=== PATIENT | female | born 1935 | race Caucasian/White ===

== ENCOUNTER 2016-07-23 20:12 | Emergency (ER) | payer MEDICARE, OTHER ==
[~2016-07-23] VITALS: Ht 154.9 cm; Wt 44.3 kg
[2016-07-23 20:12] VITALS: Ht 154.9 cm; Wt 44.3 kg
[~2016-07-23 20:12] MED LIST: ALBU1.252 AEROSOL; ASPI-558 PO; ATOR20TA59 PO; BENZ100C97 PO; ESOM20CA PO; IPRA3AMP AEROSOL; MULT-933 PO; OXYC1TAB8 PO; [UNRECOGNIZED DRUG - CODE] PO
--- OUTSIDE RECORDS SUMMARY | 2016-07-23 20:16 | XMS REPORT | Continuity of Care Document ---
Author Author [facility] Organization [facility] Address Unknown Phone Unavailable Support Name Relationship Address Phone GUNJAN RUIZ MD Caregiver [address] [place] [address] Unavailable ANGELIKA MEYERS DO Caregiver Unknown Unavailable ISABELA ETIENNE Next Of Kin Unknown [phone] Insurance Providers Guarantor Abiola Chávez Address [address] [facility] [address] [place] [id number] Email DENIED/NO TO PT [place] Payer [facility] Medicare Supp Wps Policy Number [id number] Subscriber's Name Bal Chávez Relationship 01 Spouse Effective Date 00 Payer Medicare Policy Number [id number] Subscriber's Name EduinAbiola cosby Tadeo Relationship 18 Self Effective Date 98 Advance Directives Directive Response Recorded Date/Time Advanced Directives Type None 01/23/16 9:29pm Chief Complaint and Reason for Visit Chief Complaint Throat Pain/Injury Reason for Visit Arthralgia of right temporomandibular joint Problems Active Problems Medical Problem Onset Date Status Abdominal pain Unknown Acute Abnormal liver enzymes Unknown Resolved Acute bronchitis Unknown Acute Acute respiratory insufficiency Unknown Acute Anemia Unknown Acute Arthralgia of right temporomandibular joint Unknown Acute Biliary colic Unknown Acute Bradycardia Unknown Resolved COPD (chronic obstructive pulmonary disease) Unknown Chronic COPD exacerbation Unknown Acute COPD exacerbation Unknown Acute Choledocholithiasis with obstruction Unknown Resolved Constipation Unknown Chronic Dehydration Unknown Acute Dehydration Unknown Acute Elevated serum creatinine Unknown Acute GERD (gastroesophageal reflux disease) Unknown Chronic Gallstones Unknown Resolved History of colon cancer Unknown Resolved History of pneumonia Unknown Resolved Hx of urinary tract infection Unknown Hyperlipidemia Unknown Chronic Hypokalemia Unknown Resolved Hypotension Unknown Resolved Hypoxia Unknown Chronic Influenza A Unknown Acute Influenza A Unknown Acute Migraine Unknown Chronic Oliguria Unknown Resolved Osteoarthritis Unknown Chronic Postoperative anemia due to acute blood loss Unknown Chronic Right inguinal hernia Unknown Thrombocytopenia Unknown Acute Tobacco dependency Unknown Chronic Viral upper respiratory infection Unknown Acute Vomiting Unknown Acute Past Problems Medical Problem Onset Date Small bowel obstruction Unknown Medications Current Home Medications Medication Dose Units Route Directions Days Qty Instructions Start Date Albuterol Sulfate 1.25 Mg/3 Ml Vial.neb 1 Vial Aerosol Tx. Every 6 Hours as needed for Wheezing 150 Milliliter 09/10/15 Aspirin (Aspir 81) 81 Mg Tablet. 81 Mg Oral Daily 01/10/10 Atorvastatin Calcium 20 Mg Tablet 20 Mg Oral Bedtime 06/07/14 Benzonatate (Tessalon Perle) 100 Mg Capsule 100 Mg Oral Every 8 Hours for Cough 10/03/15 Esomeprazole Mag Trihydrate (Nexium) 20 Mg Capsule 20 Mg Oral Daily 01/23/16 Ipratropium/Albuterol Sulfate (Iprat-Albut 0.5-3(2.5) Mg/3 Ml) 3 Ml Ampul.neb 1 Vial Aerosol Tx. Four Times Daily as needed for Prn Orders Multivitamin (Multi-Day Vitamins) 1 Each Tablet 1 Tab Oral Daily 01/23/16 Oxycodone Hcl/Acetaminophen (Percocet 5-325 Mg Tablet) 5-325 Tablet 0.5-1 Tab Oral Four Times Daily for Pain 10 Tablet Take 1 tablet, by mouth, 4 times a day. 01/23/16 Polyethylene Glycol 3350 (Miralax) 255 Gm Powder 17 G Oral Daily as needed for Constipation 12/10/08 Past Home Medications Medication Directions Ordered Status Calcium Carbonate/Vitamin D3 (Vitamin D-3 400 Units Tablet) 1 Tab Tablet, 1 Tab Oral Daily 01/10/10 Discontinued Cephalexin (Keflex) 500 Mg Capsule, 1 Cap Oral Four Times Daily 03/21/14 Discontinued Cholesterol Med , 06/07/14 Discontinued Ergocalciferol (Vitamin D) 400 Unit Tablet, 400 Unit Oral Daily 01/11/10 Discontinued Esomeprazole Mag Trihydrate (Nexium) 20 Mg Capsule., 20 Mg Oral Daily 04/09 Discontinued Ezetimibe/Simvastatin (Vytorin 10-20 Mg Tablet) 1 Tab Tablet, 1 Tab Oral Daily 04/09/08 Discontinued Metoclopramide Hcl (Reglan) 10 Mg Tablet, 10 Mg Oral Three Times A Day Discontinued Metoclopramide Hcl (Reglan) 5 Mg Tablet, 5 Mg Oral Daily 04/09/08 Discontinued Ondansetron (Zofran Odt) 4 Mg Tab.rapdis, 4 Mg Oral Q6h/0300,0900,1500,2100 for Nausea &/Or Vomiting 04/17/15 Discontinued Oxycodone Hcl 5 Mg Tablet, 5 Mg Oral Every 6 Hours as needed for Pain Discontinued Prednisone 5 Mg Tablet, 5 Mg Oral Taper From 60MG To 0 03/21/14 Discontinued Vitamin E Acetate (Vitamin E) 400 Unit Capsule, 400 U Oral Daily 12/10/08 Discontinued Social History Social History Problem Response Recorded Date/Time Onset Date Status Chewing Tobacco Status No 01/23/2016 10:11pm Not Applicable Not Applicable Hx Substance Use No 01/23/2016 10:11pm Not Applicable Not Applicable Hx Alcohol Use No 01/23/2016 10:11pm Not Applicable Not Applicable Has the pt used tobacco in the last 12 months Yes 11/29/2015 9:41pm Not Applicable Not Applicable Tobacco Usage smoke 03/22/2015 9:55pm Not Applicable Not Applicable Query Response Start Date Stop Date Smoking Status Current every day smoker Hospital Discharge Instructions No hospital discharge instructions. Plan of Care Discharge Date 01/23/16 10:36pm Disposition 01 DISCHARGED HOME, SELF-CARE Condition at Discharge Improved Instructions/Education Provided TMJ Syndrome (Alternative Therapy) Prescriptions See Medication Section Referrals ANGELIKA MEYERS DO Additional Instructions/Education Take Aleve 2 tablets twice daily for short term baseline pain control May use Percocet 5 mg one half to one tablet 4 times daily as needed for pain Follow up with your doctor later this week for recheck Care Plan and Goals Physician Care Plan Problem: Right TMJ arthralgia Goal: Follow up with primary care provider Instructions: Take medications and follow care plan as discussed/written Take Aleve 2 tablets twice daily for short term baseline pain control May use Percocet 5 mg one half to one tablet 4 times daily as needed for pain Follow up with your doctor later this week for recheck Functional Status No functional status results. Allergies, Adverse Reactions, Alerts No known allergies. Immunizations Query Response on File Recorded Date/Time Hx Influenza Vaccination No 11/29/15 9:41pm Hx Pneumococcal Vaccination Y 201111/29/15 9:41pm Hx Tetanus, Diptheria, Pertussis Y unknown 11/17/14 5:45pm Hx Influenza Vaccination No 11/29/15 9:41pm Hx Tetanus, Diptheria, Pertussis Y unknown 11/17/14 5:45pm Influenza Vaccine Hx FALL 201401/23/16 10:11pm Vital Signs Acute Vital Signs Vital Response Date/Time Temperature (Fahrenheit) 97.7 deg F (96.8 - 99.1) 01/23/2016 9:29pm Temperature (Calculated Celsius) 36.01956 degrees C (36.0 - 37.3) 01/23/2016 9:29pm Pulse Rate (adult) 72 bpm (60 - 100) 01/23/2016 9:29pm Respiratory Rate 12 breaths/min (10 - 20) 01/23/2016 9:29pm O2 Sat by Pulse Oximetry 94 % (90 - 100) 01/23/2016 9:29pm Oxygen Delivery Method Room Air 11/30/2015 4:30pm Blood Pressure 168/75 mm Hg 01/23/2016 9:29pm Blood Pressure Source Automatic Cuff 11/30/2015 4:30pm Height (Feet) 5 feet 01/23/2016 9:29pm Height (Inches) 1.00 inches 01/23/2016 9:29pm Weight (Kilograms) 48.500 kg 01/23/2016 9:29pm Body Mass Index (BMI) 20.0 01/23/2016 9:29pm Results Laboratory Results Test Name Result Units Flags Reference Collection Date/Time Result Date/ Time Comments White Blood Count 7.2 T/MM3 4.5-11.0 11/30/2015 4:1611/30/2015 4: 57am Red Blood Count 4.07 M/MM3 4.00-5.20 11/30/2015 4:1611/30/2015 4: 57am Hemoglobin 12.6 GM/DL 12-16 11/30/2015 4:1611/30/2015 4:57am Hematocrit 39.5 % 36-46 11/30/2015 4:1611/30/2015 4:57am Mean Corpuscular Volume 97.1 UM3 80-100 11/30/2015 4:1611/30/2015 4: 57am Mean Corpuscular Hemoglobin 31.0 UUG 26-34 11/30/2015 4:162015 4:57am Mean Corpuscular Hemoglobin Concent 31.9 GM/DL 31-37 11/30/2015 4:1611/30/2015 4:57am RDW Standard Deviation 53.5 FL H 36.9-50.2 11/30/2015 4:11/30/2015 4:57am Platelet Count 149 T/MM3 130-400 11/30/2015 4:11/30/2015 4:57am Mean Platelet Volume 12.1 UM3 9.4-12.4 11/30/2015 4:11/30/2015 4: 57am Neutrophils (%) (Auto) 39.2 % 33-66 11/30/2015 4:11/30/2015 4: 57am Lymphocytes (%) (Auto) 48.3 % H 23-45 11/30/2015 4:11/30/2015 4: 57am Monocytes (%) (Auto) 9.9 % H 0-9.0 11/30/2015 4:11/30/2015 4:57am Eosinophils (%) (Auto) 1.9 % 0-4 11/30/2015 4:11/30/2015 4:57am Basophils (%) (Auto) 0.4 % 0-2 11/30/2015 4:11/30/2015 4:57am Immature Granulocyte % (Auto) 0.3 % 0.0-0.5 11/30/2015 4:2015 4:57am Absolute Neutrophils (auto) 2.8 T/MM3 1.8-7.7 11/30/2015 4:2015 4:57am Absolute Lymphocytes (auto) 3.5 T/MM3 1-4.8 11/30/2015 4:2015 4:57am Absolute Monocytes (auto) 0.7 T/MM3 0-0.8 11/30/2015 4:11/30/2015 4:57am Absolute Eosinophils (auto) 0.1 T/MM3 0-0.5 11/30/2015 4:2015 4:57am Absolute Basophils (auto) 0.0 T/MM3 0-0.2 11/30/2015 4:11/30/2015 4:57am Absolute Immature Granulocyte (auto 0.02 T/MM3 0.00-0.03 11/30/2015 4: 11/30/2015 4:57am Icterus Index < 2 0-7 11/30/2015 4:11/30/2015 5:11am Chemistry Specimen Hemolysis < 15 0-25 11/30/2015 4:11/30/2015 5 :11am 0-25: Specimen Exhibited No Hemolysis. Turbidity < 20 0-20 11/30/2015 4:11/30/2015 5:11am Sodium Level 144 MEQ/L 134-144 11/30/2015 4:11/30/2015 5:11am Potassium Level 4.3 MEQ/L 3.6-5 11/30/2015 4:11/30/2015 5:11am Chloride Level 111 MEQ/L H 98-107 11/30/2015 4:11/30/2015 5:11am Carbon Dioxide Level 25 MEQ/L 22-30 11/30/2015 4:11/30/2015 5: 11am Anion Gap 8 MEQ/L 5-15 11/30/2015 4:11/30/2015 5:11am Blood Urea Nitrogen 14.0 MG/DL 7-17 11/30/2015 4:11/30/2015 5: 11am Creatinine 0.8 MG/DL 0.7-1.2 11/30/2015 4:11/30/2015 5:11am BUN/Creatinine Ratio 18 RATIO 6-26 11/30/2015 4:11/30/2015 5:11am Glomerular Filtration Rate Calc 69 11/30/2015 4:11/30/2015 5: 11am Glucose Level 86 MG/DL 65-110 11/30/2015 4:11/30/2015 5:11am Calculated Osmolality 277 MOSM/KG 261-280 11/30/2015 4:11/30/2015 5:11am Calcium Level 8.5 MG/DL 8.4-10.2 11/30/2015 4:11/30/2015 5:11am Total Bilirubin 0.50 MG/DL 0.20-1.30 11/30/2015 4:11/30/2015 5: 11am Alkaline Phosphatase 120 U/L 38-126 11/30/2015 4:11/30/2015 5: 11am Total Protein 5.5 G/DL L 6.3-8.2 11/30/2015 4:11/30/2015 5:11am Albumin 3.1 G/DL L 3.5-5.0 11/30/2015 4:1611/30/2015 5:11am Globulin 2.4 G/DL 2.4-3.6 11/30/2015 4:1611/30/2015 5:11am Albumin/Globulin Ratio 1.3 RATIO 1.1-2.2 11/30/2015 4:1611/30/2015 5 :11am Aspartate Amino Transf (AST/SGOT) 20 U/L 14-36 11/30/2015 4:162015 5:11am Alanine Aminotransferase (ALT/SGPT) 23 U/L 9-52 11/30/2015 4:1611/29 5:11am Urine Collection Type VOIDED-NOT CC-MIDSTR 11/29/2015 7:20pm 2015 7:23pm Urine Color YELLOW YELLOW 11/29/2015 7:20pm 11/29/2015 7:23pm Urine Turbidity CLEAR CLEAR 11/29/2015 7:20pm 11/29/2015 7:23pm Urine Specific Nutrioso >=1.030 H 1.015-1.025 11/29/2015 7:20pm 2015 7:23pm Urine pH 5.5 5.0-8.0 11/29/2015 7:20pm 11/29/2015 7:23pm Urine Leukocyte Esterase NEGATIVE NEGATIVE 11/29/2015 7:20pm 2015 7:23pm Urine Nitrite NEGATIVE NEGATIVE 11/29/2015 7:20pm 11/29/2015 7:23pm Urine Protein TRACE A NEGATIVE 11/29/2015 7:20pm 11/29/2015 7:23pm Urine Glucose (UA) NEGATIVE NEGATIVE 11/29/2015 7:20pm 11/29/2015 7: 23pm Urine Ketones NEGATIVE NEGATIVE 11/29/2015 7:20pm 11/29/2015 7:23pm Urine Urobilinogen 0.2 EU/DL NORMAL 11/29/2015 7:20pm 11/29/2015 7: 23pm Urine Bilirubin NEGATIVE NEGATIVE 11/29/2015 7:20pm 11/29/2015 7: 23pm Urine Blood 1+ A NEGATIVE 11/29/2015 7:20pm 11/29/2015 7:23pm Urine WBC NONE SEEN /HPF 0-5 11/29/2015 7:20pm 11/29/2015 7:36pm Urine RBC 1-3 /HPF 0-3 11/29/2015 7:20pm 11/29/2015 7:36pm Urine Squamous Epithelial Cells 0-5 11/29/2015 7:20pm 11/29/2015 7: 36pm Urine Bacteria TRACE H NEGATIVE 11/29/2015 7:20pm 11/29/2015 7:36pm Urine Mucus PRESENT 11/29/2015 7:20pm 11/29/2015 7:36pm Urine Hyaline Casts 3-5 /LPF 11/29/2015 7:20pm 11/29/2015 7:36pm Urine Culture Indicated CULT NOT INDICATED 11/29/2015 7:20pm 2015 7:36pm Procedures Procedure Status Date Provider(s) ROUTINE VENIPUNCTURE Completed 11/29/15 ROUTINE VENIPUNCTURE Completed 11/29/15 X-RAY EXAM OF ABDOMEN Completed 11/29/15 CT ABD & PELV W/CONTRAST Completed 11/29/15 X-RAY EXAM OF SMALL BOWEL Completed 11/29/15 COMPREHEN METABOLIC PANEL Completed 11/29/15 COMPREHEN METABOLIC PANEL Completed 11/29/15 URINALYSIS AUTO W/SCOPE Completed 11/29/15 COMPLETE CBC W/AUTO DIFF WBC Completed 11/29/15 COMPLETE CBC W/AUTO DIFF WBC Completed 11/29/15 HYDRATE IV INFUSION ADD-ON Completed 11/29/15 HYDRATE IV INFUSION ADD-ON Completed 11/29/15 HYDRATE IV INFUSION ADD-ON Completed 11/29/15 THER/PROPH/DIAG INJ IV PUSH Completed 11/29/15 EMERGENCY DEPT VISIT Completed 11/29/15 193591"HOSPITAL OBSERVATION SERVICE, PER HOUR" Completed 11/29/15 [id number]"HOSPITAL OBSERVATION SERVICE, PER HOUR" Completed 11/29/15 [id number]"HOSPITAL OBSERVATION SERVICE, PER HOUR" Completed 11/29/15 135994"INJECTION, ONDANSETRON HYDROCHLORIDE, PER 1 MG" Completed 11/29/15 [id number]"INFUSION, NORMAL SALINE SOLUTION , 1000 CC" Completed 11/29/15 [id number]"INFUSION, NORMAL SALINE SOLUTION , 1000 CC" Completed 11/29/15 [id number]"INFUSION, NORMAL SALINE SOLUTION , 1000 CC" Completed 11/29/15 [id number]"INFUSION, NORMAL SALINE SOLUTION , 250 CC" Completed 11/29/15 380700"HIGH OSMOLAR CONTRAST MATERIAL, 350-399 MG/ML IODINE Completed [id number]"LOW OSMOLAR CONTRAST MATERIAL, 300-399 MG/ML IODINE C Completed Encounters Encounter Location Arrival/Admit Date Discharge/Depart Date Attending Provider Departed Emergency Room [facility] 01/23/16 9:09pm 01/23/16 10: 36pm GUNJAN RUIZ MD Discharged Inpatient (obs) [facility] 11/29/15 9:00pm 11/30/15 6: 55pm ANGELO SANCHEZ MD Recent Diagnosis
--- OUTSIDE RECORDS SUMMARY | 2016-07-23 20:16 | XMS REPORT | Continuity of Care Document ---
Author Author [facility] Organization [facility] Address Unknown Phone Unavailable Allergies Medications Problems Procedures Results Encounters ACCT No. Visit Date/Time Discharge Status Pt. Type Provider Facility Loc./Unit Complaint [id number] 06/01/2013 08:45:00 06/01/2013 23 :59:59 [facility] [id number] 05/24/2013 09:28:00 05/24/2013 23 :59:59 [facility] Outpatient [id number] 01/05/2013 13:42:00 01/05/2013 23 :59:59 [facility] Outpatient
--- OUTSIDE RECORDS SUMMARY | 2016-07-23 20:16 | XMS REPORT | Referral Summary ---
Author Author [facility] Organization [facility] Address Unknown Phone Unavailable Care Team Providers Care Mint Machine Operator Name Role Phone Steven Gonsalez Primary Care Physician [phone] Encounter VC Date(s): 01/30/16 - 01/30/16 [facility], [address] [place] [id number] Discharge Disposition: 01-Home or Self Care Attending Physician: Santiago Warner APRN Admitting Physician: Santiago Warner APRN Vital Signs Most recent to 1 oldest [Reference Range]: Temperature Tympanic 36.5 degC [36.6-38.1 degC] *LOW* (01/30/16 1:28 PM) Peripheral Pulse 85 bpm Rate [60-100 bpm] (01/30/16 1:28 PM) Respiratory Rate 16 br/min [14-20 br/min] (01/30/16 1:28 PM) Blood Pressure 142/80 mmHg [90-140/60-90 mmHg] *HI* (01/30/16 1:28 PM) SpO2 95 % (01/30/16 1:28 PM) Problem List Condition Effective Dates Status Health Status Informant Anemia(Confirmed) 1963 Active Grief(Confirmed) Active Cataracts(Confirmed) Active COPD(Confirmed) Active Constipation(Confirm Active ed) Dry Eyes(Confirmed) Active GERD(Confirmed) Active Headaches - Active Migraine(Confirmed) shingles left 2008 Active leg(Confirmed) Hyperlipidemia(Confi Active rmed) Ear Active Infections(Confirmed ) Insomnia(Confirmed) Active COLON CA(Confirmed) 1982 Active Pneumonia(Confirmed) Active COLON 01/11/10 Active POLYPS(Confirmed)1 PURE Active HYPERCHOLESTEROLEMIA (Confirmed) RECTAL 01/11/10 Active POLYP(Confirmed)2 Chicken Active Pox(Confirmed) 1X 4 50cm, 40cm, 25 cm, 25 cm. 2TIMES 3 Allergies, Adverse Reactions, Alerts Substance Reaction Severity Status codeine Unknown Active Medications acetaminophen 325 mg, Oral, q4hr, as needed for pain, 0 Refill(s) Start Date: 03/30/15 Status: Ordered albuterol 1.25 mg/3 mL (0.042%) inhalation solution 1.25 mg 3 mL, NEB, q6hr, as needed for wheezing, 0 Refill(s) Start Date: 12/05/15 Status: Ordered Aspir 81 81 mg, Oral, Daily, 0 Refill(s) Start Date: 12/16/13 Status: Ordered atorvastatin 20 mg oral tablet 20 mg 1 tabs, Oral, Daily, # 90 tabs, 3 Refill(s), Pharmacy: [facility], stop vytorin, 1 tabs Oral Daily Start Date: 02/23/15 Status: Ordered biotin 5,000 mcg, Oral, Daily, 0 Refill(s) Start Date: 12/16/13 Status: Ordered Citracal + D Oral, BID, 0 Refill(s) Start Date: 12/16/13 Status: Ordered DuoNeb 0.5 mg-2.5 mg/3 mL inhalation solution 3 mL, Inhalation, q4hr, inhale 3 mililiter by nebulization route every 4 hours as needed. Start Date: 03/23/14 Status: Ordered MiraLax g, Oral, Daily, 0 Refill(s) Start Date: 04/20/15 Status: Ordered mirtazapine 7.5 mg oral tablet 7.5 mg 1 tabs, Oral, Bedtime (once a day), # 30 tabs, 0 Refill(s), Pharmacy: [id number], 1 tabs Oral Bedtime (once a day) Start Date: 04/21/15 Status: Ordered NexIUM 20 mg, Oral, Daily, 0 Refill(s) Start Date: 12/16/13 Status: Ordered Refresh PM 1 senait, Eye-Both, Bedtime (once a day), 0 Refill(s) Start Date: 03/30/15 Status: Ordered Tessalon Perles 100 mg oral capsule 200 mg 2 caps, Oral, TID, Cough/ Congestion, # 30 caps, 0 Refill(s), Pharmacy: [id number], 2 caps Oral TID,PRN:Cough/ Congestion Start Date: 09/12/15 Status: Ordered Tylenol PM 1 caps, Oral, Bedtime (once a day), 0 Refill(s) Start Date: 03/30/15 Status: Ordered Zofran 4 mg oral tablet 4 mg 1 tabs, Oral, q8hr, as needed for nausea/vomiting, 0 Refill(s) Start Date: 04/18/15 Status: Ordered Results No data available for this section Immunizations Vaccine Date Refusal Reason influenza virus vaccine, inactivated 12/12/15 influenza virus vaccine, inactivated 12/28/14 influenza virus vaccine, inactivated1 12/16/13 influenza virus vaccine, live 11/24/12 influenza virus vaccine, live 12/05/11 pneumococcal 23-polyvalent vaccine 02/07/12 pneumococcal 23-polyvalent vaccine 09/22/07 tetanus-diphth toxoids (Td) adult/adol 12/16/05 1Result Comment: [12/16/2013] see scanned doc Procedures Procedure Date Related Diagnosis Body Site Inguinal hernia1 10/05/15 Cholecystectomy with exploration of common 03/22/15 bile duct and choledochoenterostomy2 Mammogram 10/15/12 Colonoscopies3 01/11/10 Bone density scan 11/08/09 Sigmoid resection for colon cancer4 11/1979 breast bx, benign Hernia repair5 ANDREA / BSO 1right 2open cholecystectomy, extensive adhesiolysis, CDE, choledochoscocpy, ,t-tube 3several since 1979. 4[place] 5incisional hernia, midline. See Conversion Document. Social History Social History Type Response Smoking Status Current every day smoker; Type: Cigarettes; Tobacco use per day: Pack Assessment and Plan No data available for this section
--- OUTSIDE RECORDS SUMMARY | 2016-07-23 20:16 | XMS REPORT | Continuity of Care Document ---
Author Author Sanchez [facility] Organization [facility] Address Unknown Phone Unavailable Support Name Relationship Address Phone JAVI MATTHEWS MD Caregiver [address] [place] [phone] LOBO GARCIA MD Caregiver [address] [phone] BAL CHÁVEZ Next Of Kin [address] [place], [place] [id number] Insurance Providers Payer Name Policy Number Subscriber Name Relationship Medicare [id number] Abiola Chávez 18 Self Medicare Supp Wps [id number] Bal Chávez 01 Spouse Advance Directives Directive Response Recorded Date/Time Advanced Directives Type None 06/06/14 11:16pm Chief Complaint and Reason for Visit Chief Complaint Cough,Fever,Flu,URI Reason for Visit [id number] Hypoxia Dehydration Problems Medical Problems Problem Onset Date Status Influenza A Unknown Active Hypoxia Unknown Active Dehydration Unknown Active Influenza A Unknown Active Acute respiratory insufficiency Unknown Active COPD exacerbation Unknown Active History of colon cancer Unknown Resolved Osteoarthritis Unknown Active Thrombocytopenia Unknown Active Tobacco dependency Unknown Active Elevated serum creatinine Unknown Active Viral upper respiratory infection Unknown Active Viral upper respiratory infection Unknown Active Medications Medication Dose Route Sig Days/Qty Instructions Order Date Discontinued Date Status Aspirin 81 Mg PO DAILY 01/10/10 Active Calcium Carbonate 1 Tab PO DAILY 04/09/08 Active Esomeprazole Mag Trihydrate 20 Mg PO DAILY 04/09/08 Active Metoclopramide Hcl 5 Mg PO DAILY 04/09/08 01/10/10 Discontinued Ezetimibe/Simvastatin 1 Tab PO DAILY 04/09/08 06/07/14 Discontinued Polyethylene Glycol 3350 PO DAILY 12/10/08 Active Vitamin E Acetate 400 U PO DAILY 12/10/08 01/10/10 Discontinued Metoclopramide Hcl 10 Mg PO THREE TIMES A DAY 01/10/10 06/07/14 Discontinued Calcium Carbonate/Vitamin D3 1 Tab PO DAILY 01/10/10 01/11/10 Discontinued Ergocalciferol 400 Unit PO DAILY 01/11/10 06/07/14 Discontinued Ipratropium/Albuterol Sulfate 3 Ml AEROSOL RESP.TX 4 TIMES A DAY 14 Days 03/21/14 Active Prednisone 5 Mg PO taper from 60mg to 0 14 Days Take 1 tablet, by mouth, once a day with breakfast. 03/21/14 06/07/14 Discontinued Fluticasone/Salmeterol 1 Puff ORAL INH RESP.TX TWICE A DAY 14 Days 02/21 Active Cephalexin 1 Cap PO FOUR TIMES DAILY 5 Days 03/21/14 06/07/14 Discontinued [Cholesterol Med] 06/07/14 06/07/14 Discontinued Atorvastatin Calcium 1 Tab PO BEDTIME 06/07/14 Active Biotin 1,000 Mcg PO DAILY 06/07/14 Active Prednisone 10 Mg PO DIRECTED 24 Qty 4 Tablets by mouth daily for 2 days THEN, 06/07/14 Active Penicillin V Potassium 1 Tab-Cap PO THREE TIMES A DAY 30 Qty 06/07/14 Active Social History Social History Problem Response Recorded Date/Time Hx Alcohol Use No 06/06/2014 11:37pm Has the pt used tobacco in the last 12 months Yes 03/15/2014 9:58am Tobacco Usage smoke 03/15/2014 2:33pm Query Response Start Date Stop Date Smoking Status Current every day smoker Hospital Discharge Instructions Instructions: Care Instructions: Reason for Hospitalization: influenza A, COPD exacerbation I was in the hospital because (patient own words): they said i got the flu Discharge Diet: regular Discharge Activity: as tolerated--homebound at this time for respiratory recovery Patient Instructions: Should your symptoms return, you could contact the rapier insertion loom fixer nurse through your home health agency, or Dr Matthews through the office. Otherwise you could return to the ED for emergent evaluation Condition at time of discharge: Good 2.855 Bilirubin Level: 6.3 Congenital Heart Disease Screening Result: Pass Condition at time of discharge: Good Good Pass Plan of Care Discharge Date 03/21/14 2:47pm Disposition 02 TO [facility] Condition at Discharge Improved Instructions/Education Provided All Forms of Smoking Are Bad for You How to Quit Smoking Prescriptions See Medications Section Referrals JAVI MATTHEWS MD Functional Status Query Response Date Recorded Physical Hygiene Self June 06, 2014 11:37pm Disabilities None June 06, 2014 11:37pm Devices Used None June 06, 2014 11:37pm Dressing Self June 06, 2014 11:37pm Ambulation Self June 06, 2014 11:37pm Diet Self June 06, 2014 11:37pm Mental Status Alert Oriented June 06, 2014 11:37pm Disabilities None June 06, 2014 11:37pm Devices Used None June 06, 2014 11:37pm Physical Hygiene Self June 06, 2014 11:37pm Dressing Self June 06, 2014 11:37pm Ambulation Self June 06, 2014 11:37pm Diet Self June 06, 2014 11:37pm Allergies, Adverse Reactions, Alerts Allergen Type Severity Reaction Status Last Updated Codeine Allergy Unknown Active 06/06/14 Immunizations Name Given Type Hx Influenza Vaccination Y FALL 2013 Historical Hx Pneumococcal Vaccination Y 02-07-12 Historical Hx Influenza Vaccination Y FALL 2013 Historical Vital Signs Acute Vital Signs Vital Response Date/Time Temperature (Fahrenheit) 98.4 deg F (96.8 - 99.1) Temperature (Calculated Celsius) 36.91265 degrees C (36.0 - 37.3) Pulse Rate (adult) 98 bpm (60 - 100) Respiratory Rate 18 breaths/min (10 - 20) O2 Sat by Pulse Oximetry 91 % (90 - 100) Blood Pressure 120/56 mm Hg Height 5 ft 1 in Weight 110 lb Body Mass Index 20.0 kg/m^2 Results Test Source Date Result Interp. Ref. Range Comments Alanine Aminotransferase (ALT/SGPT) March 17, 2014 4:19am 25 U/L N 9- 52 Albumin March 17, 2014 4:19am 2.7 G/DL L 3.5-5.0 Albumin/Globulin Ratio March 17, 2014 4:19am 1.2 RATIO N 1.1-2.2 Alkaline Phosphatase March 17, 2014 4:19am 80 U/L N 38-126 Anion Gap March 21, 2014 5:18am 7 MEQ/L N 5-15 Aspartate Amino Transf (AST/SGOT) March 17, 2014 4:19am 42 U/L H 14- 36 BUN/Creatinine Ratio March 21, 2014 5:18am 46 RATIO H 6-26 Band Neutrophils # March 21, 2014 5:18am 0.4 T/MM3 - Band Neutrophils % March 21, 2014 5:18am 4.0 % N 0-6 Basophils # (Auto) March 20, 2014 5:21am 0.1 T/MM3 N 0-0.2 Basophils (%) (Auto) March 20, 2014 5:21am 0.5 % N 0-2 Blood Urea Nitrogen March 21, 2014 5:18am 32.0 MG/DL H 7-17 Calcium Level March 21, 2014 5:18am 8.9 MG/DL N 8.4-10.2 Calculated Osmolality March 21, 2014 5:18am 282 MOSM/KG H 261-280 Carbon Dioxide Level March 21, 2014 5:18am 32 MEQ/L H 22-30 Chloride Level March 21, 2014 5:18am 102 MEQ/L N 98-107 Conjugated Bilirubin May 18, 2012 1:25am 0.00 MG/DL N 0.00-0.30 Creatinine March 21, 2014 5:18am 0.7 MG/DL N 0.7-1.2 Eosinophils # (Auto) March 20, 2014 5:21am 0.0 T/MM3 N 0-0.5 Eosinophils (%) (Auto) March 20, 2014 5:21am 0.0 % N 0-4 Globulin March 17, 2014 4:19am 2.2 G/DL L 2.4-3.6 Glucose Level March 21, 2014 5:18am 162 MG/DL H 65-110 Hematocrit March 21, 2014 5:18am 43.5 % N 36-46 Hemoglobin March 21, 2014 5:18am 14.3 GM/DL N 12-16 Hemoglobin A1c March 21, 2014 5:18am 6.5 % N 6-7 <6.0 NON-DIABETIC RANGE6.0-7.0 ADA THERAPEUTIC RANGE >7.0 ACTION SUGGESTED Influenza Type A Antigen March 14, 2014 9:50pm Positive - This test can not distinguish influenza A virus subtypes,e.g., seasonal influenza A and novel influenza A (H1N1). Influenza Type B Antigen March 14, 2014 9:50pm Negative - Negative for Flu B protein antigen. Assay sensitivity is90%. Lipase May 18, 2012 1:25am 250 U/L N 23-300 Lymphocytes # (Auto) March 20, 2014 5:21am 1.6 T/MM3 N 1-4.8 Lymphocytes # (Manual) March 21, 2014 5:18am 1.8 T/MM3 N 1-4.8 Lymphocytes % (Manual) March 21, 2014 5:18am 16.0 % L 23-45 Lymphocytes (%) (Auto) March 20, 2014 5:21am 14.9 % L 23-45 Magnesium Level March 21, 2014 5:18am 2.0 MG/DL N 1.6-2.3 Mean Corpuscular Hemoglobin March 21, 2014 5:18am 31.1 UUG N 26-34 Mean Corpuscular Hemoglobin Concent March 21, 2014 5:18am 32.9 GM/DL N 31-37 Mean Corpuscular Volume March 21, 2014 5:18am 94.6 UM3 N 80-100 Mean Platelet Volume March 21, 2014 5:18am 12.0 UM3 N 9.4-12.4 Monocytes # (Auto) March 20, 2014 5:21am 0.6 T/MM3 N 0-0.8 Monocytes # (Manual) March 19, 2014 5:50am 0.2 T/MM3 N 0-0.8 Monocytes % (Manual) March 19, 2014 5:50am 2.0 % N 0-9.0 Monocytes (%) (Auto) March 20, 2014 5:21am 5.1 % N 0-9.0 Neutrophils # (Auto) March 20, 2014 5:21am 8.4 T/MM3 H 1.8-7.7 Neutrophils # (Manual) March 21, 2014 5:18am 8.8 T/MM3 H 1.8-7.7 Neutrophils % (Manual) March 21, 2014 5:18am 80.0 % H 33-66 Neutrophils (%) (Auto) March 20, 2014 5:21am 76.7 % H 33-66 Platelet Count March 21, 2014 5:18am 184 T/MM3 N 130-400 Potassium Level March 21, 2014 5:18am 3.9 MEQ/L DN 3.6-5 Prealbumin March 15, 2014 4:24am 11.3 MG/DL L 17.6-36.0 COMMENT emilee RDW Standard Deviation March 21, 2014 5:18am 45.9 FL N 36.9-50.2 Red Blood Count March 21, 2014 5:18am 4.60 M/MM3 N 4.00-5.20 Sodium Level March 21, 2014 5:18am 141 MEQ/L N 134-144 Thyroid Stimulating Hormone (TSH) March 15, 2014 4:24am 0.24 MIU/L L 0.47-4.68 COMMENT emilee Total Bilirubin March 17, 2014 4:19am < 0.10 MG/DL L 0.20-1.30 Total Protein March 17, 2014 4:19am 4.9 G/DL L 6.3-8.2 Troponin I March 14, 2014 9:55pm < 0.012 ng/ml 0-0.12 Unconjugated Bilirubin May 18, 2012 1:25am 0.20 MG/DL N 0.00-1.10 Urine Amorphous Urates April 09, 2008 6:20pm Many - Has specimen been collected/obtained? Y Urine Bacteria March 15, 2014 9:55pm Trace H - Has specimen been collected/obtained? Y Urine Bilirubin March 15, 2014 9:55pm Negative - Has specimen been collected/obtained? Y Urine Blood March 15, 2014 9:55pm 1+ H - Has specimen been collected/ obtained? Y Urine Collection Type March 15, 2014 9:55pm Cleancatch-midstream - Has specimen been collected/obtained? Y Urine Color March 15, 2014 9:55pm Yellow - Has specimen been collected/obtained? Y Urine Culture Indicated May 18, 2012 3:10am Cult reflexed &setup - Has specimen been collected/obtained? Y Urine Glucose (UA) March 15, 2014 9:55pm 2+ H - Has specimen been collected/obtained? Y Urine Ketones March 15, 2014 9:55pm Trace H - Has specimen been collected/obtained? Y Urine Leukocyte Esterase March 15, 2014 9:55pm Negative - Has specimen been collected/obtained? Y Urine Nitrite March 15, 2014 9:55pm Negative - Has specimen been collected/obtained? Y Urine Protein March 15, 2014 9:55pm Trace H - Has specimen been collected/obtained? Y Urine RBC March 15, 2014 9:55pm 0-1 /HPF - Has specimen been collected/obtained? Y Urine Specific [place] March 15, 2014 9:55pm 1.025 - Has specimen been collected/obtained? Y Urine Squamous Epithelial Cells March 15, 2014 9:55pm 5-10 - Has specimen been collected/obtained? Y Urine Transitional Epithelial Cells April 09, 2008 6:20pm 5-10 /HPF - Has specimen been collected/obtained? Y Urine Turbidity March 15, 2014 9:55pm Clear - Has specimen been collected/obtained? Y Urine Urobilinogen March 15, 2014 9:55pm 0.2 EU/DL - Has specimen been collected/obtained? Y Urine WBC March 15, 2014 9:55pm 0-1 /HPF - Has specimen been collected/obtained? Y Urine pH March 15, 2014 9:55pm 6.0 - Has specimen been collected/ obtained? Y Vitamin B12 Level March 15, 2014 4:24am 553 PG/ML N 239-931 COMMENT emilee White Blood Count March 21, 2014 5:18am 11.0 T/MM3 N 4.5-11.0 Chemistry Specimen Hemolysis March 21, 2014 5:18am < 15 0-25 0-25: No Hemolysis.26-70: Slight Hemolysis - can falsely elevate K and Urine Protein. 71-285: Moderate Hemolysis - can falsely elevate K, Troponin I, CA 19-9, PTH, CSF GLucose, and Urine Protein, and can falsely decrease Phenytoin. 286-999: Gross Hemolysis - can falsely elevate K, Troponin I, CA 19-9, PTH, CSF Glucose, and Urine Protine, and can falsely decrease Phenytoin. Recommend specimen recollection. Turbidity March 21, 2014 5:18am < 20 0-20 Reactive Lymphocytes % March 18, 2014 4:13am 1.0 % H 0-0 Glomerular Filtration Rate Calc March 21, 2014 5:18am 81 - Reactive Lymphocytes # March 18, 2014 4:13am 0.1 T/MM3 H 0-0 Immature Granulocyte # (Auto) March 20, 2014 5:21am 0.31 T/MM3 H 0.00- 0.03 Immature Granulocyte % (Auto) March 20, 2014 5:21am 2.8 % H 0.0-0.5 Venous Blood Lactate March 14, 2014 9:55pm 1.1 MMOL/L N 0.6-2.2 Procalcitonin March 14, 2014 9:55pm 0.10 NG/ML - PCT </=0.5 ng/mL - sepsis not likely;PCT >0.5 and </=2 ng/mL - sepsis possible; PCT >2 ng/mL - sepsis likely; PCT >/=10 ng/mL - systemic inflammatory response - sepsis or septic shock highly indicated. Icterus Index March 21, 2014 5:18am < 2 0-7 NB-Vak-Q-Type Natriuretic Peptide March 14, 2014 9:55pm 528 PG/ML H 0- 175 Rule in cut points: <50 years old=450; 50-75 years old=900; >75 years old=1800; When utilizing ProBNP rule-in cut points, adjustment for impaired renal function is typically not required. Blood Culture Peripheral Blood March 14, 2014 9:55pm NO GROWTH AFTER 5 DAYS Urine Culture Urine, Clean Catch Voided May 18, 2012 3:26am Diphtheroid Bacillus Name: ABIOLA CHÁVEZ Unit #: [id number] : 1935 Sex: F DISCHARGE SUMMARY Admit Date: 03/14/14 Report #: [id number] General Date Date DATE: 03/21/14 TIME: 13:53 Attending Physician Andrew Sue MD Admitting Physician Andrew Sue MD Consulting Physician [facility] Admitting Diagnosis (1) COPD exacerbation Status: Acute (2) Influenza A Status: Acute (3) Acute respiratory insufficiency Status: Acute (4) Elevated serum creatinine Status: Acute Assessment & Plan: Serum creatinine 1.6 on admission (5) Thrombocytopenia Status: Acute (6) Osteoarthritis Status: Chronic (7) History of colon cancer Status: Resolved Assessment & Plan: History of colon resection, no problems since 1982 (8) Tobacco dependency Status: Chronic Discharge Diagnosis same Procedures none Laboratory Laboratory Laboratory Tests Test 03/21/14 05:18 White Blood Count 11.0 T/MM3 Red Blood Count 4.60 M/MM3 Hemoglobin 14.3 GM/DL Hematocrit 43.5 % Mean Corpuscular Volume 94.6 UM3 Mean Corpuscular Hemoglobin 31.1 UUG Mean Corpuscular Hemoglobin 32.9 GM/DL Concent RDW Standard Deviation 45.9 FL Platelet Count 184 T/MM3 Mean Platelet Volume 12.0 UM3 Neutrophils % (Manual) 80.0 % Band Neutrophils % 4.0 % Lymphocytes % (Manual) 16.0 % Neutrophils # (Manual) 8.8 T/MM3 Band Neutrophils # 0.4 T/MM3 Lymphocytes # (Manual) 1.8 T/MM3 Turbidity < 20 Sodium Level 141 MEQ/L Potassium Level 3.9 MEQ/L Chloride Level 102 MEQ/L Carbon Dioxide Level 32 MEQ/L Anion Gap 7 MEQ/L Blood Urea Nitrogen 32.0 MG/DL Creatinine 0.7 MG/DL Glomerular Filtration Rate 81 Calc BUN/Creatinine Ratio 46 RATIO Glucose Level 162 MG/DL Hemoglobin A1c 6.5 % Calculated Osmolality 282 MOSM/KG Calcium Level 8.9 MG/DL Magnesium Level 2.0 MG/DL Icterus Index < 2 Chemistry Specimen Hemolysis < 15 History of Present Illness Abiola Chávez is an 78-year-old lady who became ill around March 12. She has had cough and sinus congestion. She has felt weak and dizzy and lightheaded. She is become diaphoretic at times. She has felt very weak, and achy all over. She has also had abdominal discomfort. Her appetite has been suffering. She has had trouble taking care of her because she has been too ill. She presented to [facility] emergency department on March 14 for evaluation, and she was hypoxic on arrival, at 88% on room air. She is a daily smoker, but is not on oxygen at home. Labs were done. Her white count was normal, but platelets were low at 97,000. On chemistries, BUN and creatinine were both elevated at 56 and 1.6, respectively. AST was slightly high at 49. Influenza A was positive. Chest x-ray was negative for acute cardiopulmonary abnormality. She was started on Rocephin and azithromycin, as well as Tamiflu for influenza. She was placed on oxygen for her acute respiratory insufficiency. Dr. Sue was notified, and in light of the patient's condition, was placed into inpatient admission status for systemic antimicrobial therapy, close respiratory monitoring, and treatment of her COPD exacerbation. Length of stay is expected to exceed 2 overnights Hospital Course 03/21 Pt relates that she wants to go home today. She has been weaned to RA at this time. She does consent for home health services and this is set up through [facility] for her return to home. She has a nebulizer at home and rxs are given for this. An appointment is given for followup with Dr Matthews next week. She is instructed to abstain from smoking. Should her symptoms return she could contact the rapier insertion loom fixer nurse through [facility], contact Dr Matthews through the office or return to the ED for emergent evaluation. Time spent in discharge activity was 35 min 03/20- Reports she is feeling better. Still weak and requiring oxygen intermittently. Assess A1c as her glucose has been elevated throughout stay. Still a bit dry on lab results- monitor PO intake. May benefit from home health on DC. Continue supportive care. 03/19 Complete course of Tamiflu; evening dose will be the last. Continue with Rocephin for antimicrobial coverage. Continue with Solu-Medrol 62.5 mg IV q.6h. to decrease pulmonary inflammation. May stop IV fluids. Will give one time dose of potassium 20 mEq p.o. in light of hypokalemia. Will give 50 mg of Spironolactone with 20 mg of Lasix to help with fluid motivation. Encourage ambulation; discussed the importance of ambulation in halls with nursing staff. Encourage increased walking. This will help wean her off oxygen. Continue with supplemental oxygen, weaning as able. Continue with Nexium for GI protection as well as for her GERD; patient feels the Protonix was not working as well for her. Continue with nebulized treatments of DuoNeb and Budesonide. Continue SCDs along with ambulation for DVT prophylaxis. Recheck CBC and BMP in a.m. Encouraged good pulmonary toilet. Encouraged use of Acapella and deep breathing along with ambulation. Continue supportive care. 03/18 Weak down oxygen- attempt room air today Have PT evaluate pt for strength along with ambulation BID Continue to monitor daily labs Sodium today up slightly 145 03/17- continue with antibiotics and Tamiflu Chest x-ray obtained yesterday showed no consolidation or pneumonia with mild effusion Encourage PT and OT to encourage strengthening Follow laboratory studies daily Continue to wean down oxygen as able 03/16 1. Will continue with Rocephin for antimicrobial coverage. May discontinue azithromycin as course has been complete. 2. Continue with Tamiflu in light of influenza. 3. Decrease IV fluids to 50 cc/hr. 4. Continue Solu-Medrol at 62.5 mg IV q.6h. to help decrease pulmonary inflammation. 5. Continue Protonix for GI protection, switching to p.o. 6. Continue SCDs for DVT prophylaxis, encouraging activities. 7. Continue with nebulized treatments. 8. Work on weaning off oxygen. 9. Recheck CBC, CMP in a.m. 10. Continue with supportive care. 03/15 Admit to inpatient status under the care of Dr. Sue. Tamiflu for influenza A. Rocephin and azithromycin to cover for any element of community-acquired pneumonia. For her COPD exacerbation, start steroids, initially at 125 mg, then Solu- Medrol 62.5 mg 4 times a day. Provide DuoNeb treatments 4 times a day. Start Mucinex DM for expectorant effect. Will ask RT to provide tobacco cessation information. Patient may have a nicotinic patch if needed. NS at 100 mL per hour for hydration. Kidney functions are improving (SCr 1.6 on admission, now 1.2). Continue with oxygen as needed. Monitor platelets. Will use SCDs for DVT prophylaxis rather than Lovenox due to thrombocytopenia. Consult PT/OT to address generalized debility and pulmonary debility. Check TSH, prealbumin, vitamin B12 for completeness. Discussed CODE STATUS, patient is requesting full resuscitation. Upon hospital discharge, care will be returned to Dr. Matthews. Problems: DVT Prophylaxis: SCD'S GI Prophylaxis: Protonix Code Status Full Code Home Meds Active Scripts Cephalexin (Keflex)500 Mg Capsule1 Cap PO QID 5 Days Prov:SID IGLESIAS DO 03/21/14 Fluticasone/Salmeterol (Advair 250-50 Diskus)1 Disk W/Dev Inhaler1 Puff ORAL INH RTBID 14 Days Prov:SID IGLESIAS DO 03/21/14 Prednisone 5 Mg Tablet5 Mg PO taper from 60mg to 0 14 Days Take 1 tablet, by mouth, once a day with breakfast. Prov:SID IGLESIAS DO 03/21/14 Ipratropium/Albuterol Sulfate (Iprat-Albut 0.5-3(2.5) mg/3 ml)3 Ml Solution3 Ml AEROSOL RTQID 14 Days Prov:SID IGLESIAS DO 03/21/14 Reported Medications Ergocalciferol (Vitamin D)400 Unit [id number] Unit PO DAILY 01/11/10 Metoclopramide Hcl (Reglan)10 Mg [id number] Mg PO TID 01/10/10 Polyethylene Glycol 3350 (Miralax)255 Gm Powder Po Daily 12/10/08 Ezetimibe/Simvastatin (Vytorin 10-20 Mg Tablet)1 Tab Tablet1 Tab PO DAILY 04/09/08 Esomeprazole Mag Trihydrate (Nexium)20 Mg Capsule.dr20 Mg PO DAILY 04/09/08 Calcium Carbonate (Calcium)1 Tab Tablet1 Tab PO DAILY 04/09/08 Aspirin (Aspir 81)81 Mg Tablet.dr81 Mg PO DAILY 01/10/10 Discharge Disposition stable Copies To 1: JAVI MATTHEWS MD, CARRIE DO Mar 21, 2014 13:55 Procedures No known history of procedures. Encounters Encounter Location Date/Time Departed Emergency Room [facility] 06/06/14 11:09pm Discharged Inpatient [facility] 03/14/14 11:16pm Recent Diagnosis
--- OUTSIDE RECORDS SUMMARY | 2016-07-23 20:17 | XMS REPORT | Continuity of Care Document ---
Author Author [facility] Organization [facility] Address Unknown Phone Unavailable Support Name Relationship Address Phone ANDREW SUE MD Caregiver [address] [place] [address] [place], [place] [id number] JAVI MATTHEWS MD Caregiver [address] [place] [phone] LOBO GARCIA MD Caregiver [address] [place] [address] [place] [phone] BAL CHÁVEZ Next Of Kin [address] [facility] [address] [place] [address] Insurance Providers Payer Name Policy Number Subscriber Name Relationship Medicare [id number] Abiola Chávez 18 Self Medicare Supp Wps [id number] Bal Chávez 01 Spouse Advance Directives Directive Response Recorded Date/Time Advanced Directives Type None 03/14/14 11:16pm Ordered Resuscitation Status Full Code 03/15/14 2:33pm Resuscitation Documents on File Yes 03/15/14 12:00am Chief Complaint and Reason for Visit Chief Complaint INFLUENZA A,HYPOXIA,DEHYDRATION Reason for Visit Influenza A Hypoxia Dehydration Influenza A Acute respiratory insufficiency COPD exacerbation History of colon cancer Osteoarthritis Thrombocytopenia Tobacco dependency Elevated serum creatinine Problems Medical Problems Problem Onset Date Status Influenza A Unknown Active Hypoxia Unknown Active Dehydration Unknown Active Influenza A Unknown Active Acute respiratory insufficiency Unknown Active COPD exacerbation Unknown Active History of colon cancer Unknown Resolved Osteoarthritis Unknown Active Thrombocytopenia Unknown Active Tobacco dependency Unknown Active Elevated serum creatinine Unknown Active Medications Medication Dose Route Sig Days/Qty Instructions Order Date Discontinued Date Status Aspirin 81 Mg PO DAILY 01/10/10 Active Calcium Carbonate 1 Tab PO DAILY 04/09/08 Active Esomeprazole Mag Trihydrate 20 Mg PO DAILY 04/09/08 Active Metoclopramide Hcl 5 Mg PO DAILY 04/09/08 01/10/10 Discontinued Ezetimibe/Simvastatin 1 Tab PO DAILY 04/09/08 Active Polyethylene Glycol 3350 PO DAILY 12/10/08 Active Vitamin E Acetate 400 U PO DAILY 12/10/08 01/10/10 Discontinued Metoclopramide Hcl 10 Mg PO THREE TIMES A DAY 01/10/10 Active Calcium Carbonate/Vitamin D3 1 Tab PO DAILY 01/10/10 01/11/10 Discontinued Ergocalciferol 400 Unit PO DAILY 01/11/10 Active Ipratropium/Albuterol Sulfate 3 Ml AEROSOL RESP.TX 4 TIMES A DAY 14 Days 03/21/14 Active Prednisone 5 Mg PO taper from 60mg to 0 14 Days Take 1 tablet, by mouth, once a day with breakfast. 03/21/14 Active Fluticasone/Salmeterol 1 Puff ORAL INH RESP.TX TWICE A DAY 14 Days 02/21 Active Cephalexin 1 Cap PO FOUR TIMES DAILY 5 Days 03/21/14 Active Social History Social History Problem Response Recorded Date/Time Hx Alcohol Use No 03/14/2014 9:57pm Has the pt used tobacco in the [...] your symptoms return, you could contact the admissions supervisor nurse through your home health agency, or Dr Matthews through the office. Otherwise you could return to the ED for emergent evaluation Condition at time of discharge: Good SHIPMENT IS DUE TO BE SENT TO YOU [facility]. Durable Medical Equipment: Hospital bed should be waiting at home Oxygen through [facility] Condition at time of discharge: Fair Bilirubin Level: 6.5 Congenital Heart Disease Screening Result: Pass Plan of Care Discharge Date 03/21/14 2:47pm Disposition 06 HOME HEALTH SERVICE Instructions/Education Provided All Forms of Smoking Are Bad for You How to Quit Smoking Prescriptions See Medications Section Functional Status Query Response Date Recorded Physical Hygiene Self March 21, 2014 2:06pm Disabilities Visual March 21, 2014 2:06pm Devices Used Glasses March 21, 2014 2:06pm Dressing Self March 21, 2014 2:06pm Ambulation Self March 21, 2014 2:06pm Diet Self March 21, 2014 2:06pm Mental Status Alert Oriented March 21, 2014 2:06pm Disabilities Visual March 21, 2014 2:06pm Devices Used Glasses March 21, 2014 2:06pm Physical Hygiene Self March 21, 2014 2:06pm Dressing Self March 21, 2014 2:06pm Ambulation Self March 21, 2014 2:06pm Diet Self March 21, 2014 2:06pm Allergies, Adverse Reactions, Alerts Allergen Type Severity Reaction Status Last Updated Codeine Allergy Unknown Active 03/14/14 Immunizations Name Given Type Hx Influenza Vaccination Y FALL 2013 Historical Hx Pneumococcal Vaccination Y 02-07-12 Historical Hx Influenza Vaccination Y FALL 2013 Historical Vital Signs Acute Vital Signs Vital Response Date/Time Temperature (Fahrenheit) 96.9 deg F (96.8 - 99.1) Temperature (Calculated Celsius) 36.38715 degrees C (36.0 - 37.3) Temperature Source Temporal Pulse Rate (adult) 80 bpm (60 - 100) Respiratory Rate 12 breaths/min (10 - 20) O2 Sat by Pulse Oximetry 90 % (90 - 100) Oxygen Delivery Method Room Air Blood Pressure 177/99 mm Hg Blood Pressure Source Automatic Cuff Height 5 ft 1 in Weight 118 lb Body Mass Index 22.0 kg/m^2 Results Test Source Date Result Interp. [...] 21, 2014 5:18am 32 MEQ/L H 22-30 Chemistry Specimen Hemolysis March 21, 2014 5:18am [...] can falsely decrease Phenytoin. Recommend specimen recollection. Chloride Level March 21, 2014 5:18am 102 MEQ/L N 98-107 Conjugated Bilirubin May 18, 2012 1:25am 0.00 MG/DL N 0.00-0.30 Creatinine March 21, 2014 5:18am 0.7 MG/DL N 0.7-1.2 Eosinophils # (Auto) March 20, 2014 5:21am 0.0 T/MM3 N 0-0.5 Eosinophils (%) (Auto) March 20, 2014 5:21am 0.0 % N 0-4 Globulin March 17, 2014 4:19am 2.2 G/DL L 2.4-3.6 Glomerular Filtration Rate Calc March 21, 2014 5:18am 81 - Glucose Level March 21, 2014 5:18am 162 MG/DL H 65-110 Hematocrit March 21, 2014 5:18am 43.5 % N 36-46 Hemoglobin March 21, 2014 5:18am 14.3 GM/DL N 12-16 Hemoglobin A1c March 21, 2014 5:18am 6.5 % N 6-7 <6.0 NON-DIABETIC RANGE6.0-7.0 ADA THERAPEUTIC RANGE >7.0 ACTION SUGGESTED Icterus Index March 21, 2014 5:18am < 2 0-7 Immature Granulocyte # (Auto) March 20, 2014 5:21am 0.31 T/MM3 H 0.00- 0.03 Immature Granulocyte % (Auto) March 20, 2014 5:21am 2.8 % H 0.0-0.5 Influenza Type A Antigen March 14, 2014 [...] 20, 2014 5:21am 5.1 % N 0-9.0 IF-Vnu-P-Type Natriuretic Peptide March 14, 2014 9:55pm 528 PG/ML H 0- 175 Rule in cut points: <50 years old=450; 50-75 years old=900; >75 years old=1800; When utilizing ProBNP rule-in cut points, adjustment for impaired renal function is typically not required. Neutrophils # (Auto) March 20, 2014 5:21am [...] 4:24am 11.3 MG/DL L 17.6-36.0 COMMENT emilee Procalcitonin March 14, 2014 9:55pm 0.10 NG/ML - PCT </=0.5 ng/mL - sepsis not likely;PCT >0.5 and </=2 ng/mL - sepsis possible; PCT >2 ng/mL - sepsis likely; PCT >/=10 ng/mL - systemic inflammatory response - sepsis or septic shock highly indicated. RDW Standard Deviation March 21, 2014 5:18am 45.9 FL N 36.9-50.2 Reactive Lymphocytes # March 18, 2014 4:13am 0.1 T/MM3 H 0-0 Reactive Lymphocytes % March 18, 2014 4:13am 1.0 % H 0-0 Red Blood Count March 21, 2014 5:18am [...] 14, 2014 9:55pm < 0.012 ng/ml 0-0.12 Turbidity March 21, 2014 5:18am < 20 0-20 Unconjugated Bilirubin May 18, 2012 1:25am 0.20 [...] Has specimen been collected/obtained? Y Urine Specific [place] March 15, 2014 9:55pm 1.025 - Has [...] - Has specimen been collected/ obtained? Y Venous Blood Lactate March 14, 2014 9:55pm 1.1 MMOL/L N 0.6-2.2 Vitamin B12 Level March 15, 2014 4:24am 553 PG/ML N 239-931 COMMENT emilee White Blood Count March 21, 2014 5:18am 11.0 T/MM3 N 4.5-11.0 Blood Culture Peripheral Blood March 14, 2014 9:55pm NO GROWTH AFTER 5 DAYS Urine Culture Urine, Clean Catch Voided May 18, 2012 3:26am Diphtheroid Bacillus Name: ABIOLA CHÁVEZ Unit #: [id number] : 1935 Sex: F DISCHARGE SUMMARY Admit Date: 03/14/14 Report #: [id number] General Date Date DATE: 03/21/14 TIME: 13:53 Attending Physician Andrew Sue MD Admitting Physician Andrew Sue MD Consulting Physician [facility] Admitting Diagnosis (1) COPD exacerbation Status: Acute [...] has been too ill. She presented to [facility] emergency department on March 14 for [...] services and this is set up through [facility] for her return to home. She has a nebulizer at home and rxs are given for this. An appointment is given for followup with Dr Matthews next week. She is instructed to abstain from smoking. Should her symptoms return she could contact the admissions supervisor nurse through [facility], contact Dr Matthews through the office or [...] 03/21/14 Reported Medications Ergocalciferol (Vitamin D)400 Unit [id number] Unit PO DAILY 01/11/10 Metoclopramide Hcl (Reglan)10 Mg [id number] Mg PO TID 01/10/10 Polyethylene Glycol 3350 [...] history of procedures. Encounters Encounter Location Date/Time Admitted Inpatient [facility] 03/14/14 11:16pm Recent Diagnosis Influenza A Hypoxia Dehydration Influenza A Acute respiratory insufficiency COPD exacerbation History of colon cancer Osteoarthritis Thrombocytopenia Tobacco dependency Elevated serum creatinine
--- OUTSIDE RECORDS SUMMARY | 2016-07-23 20:18 | XMS REPORT | Referral Summary ---
Author Author [facility] Organization [facility] Address Unknown Phone Unavailable Care Team Providers Care Pediatric Anesthesiologist Name Role Phone Steven Gonsalez Primary Care Physician [phone] Encounter Date(s): 12/12/15 - 12/12/15 [facility], [address] [place] [address] Discharge Diagnosis: Other hyperlipidemia Discharge Diagnosis: Encounter for immunization Discharge Diagnosis: H/O small bowel obstruction Discharge Disposition: 01-Home or Self Care Attending Physician: Milly Gonsalez DO Admitting Physician: Milly Gonsalez DO Vital Signs Most recent to 1 oldest [Reference Range]: Temperature Tympanic 36.9 degC [36.6-38.1 degC] (12/12/15 9:02 AM) Peripheral Pulse 80 bpm Rate [60-100 bpm] (12/12/15 9:02 AM) Respiratory Rate 16 br/min [14-20 br/min] (12/12/15 9:02 AM) Blood Pressure 150/82 mmHg [90-140/60-90 mmHg] *HI* (12/12/15 9:02 AM) SpO2 94 % (12/12/15 9:02 AM) Problem List Condition Effective Dates Status Health [...] # 90 tabs, 3 Refill(s), [facility]acy: [facility], stop vytorin, 1 tabs Oral [...] day), # 30 tabs, 0 Refill(s), Pharmacy: [id number], 1 tabs Oral Bedtime (once a day) Start Date: 04/21/15 Status: Ordered NexIUM 20 mg, Oral, Daily, 0 Refill(s) Start Date: 12/16/13 Status: Ordered Refresh PM 1 senait, Eye-Both, Bedtime (once a day), 0 Refill(s) Start Date: 03/30/15 Status: Ordered Tessalon Perles 100 mg oral capsule 200 mg 2 caps, Oral, TID, Cough/ Congestion, # 30 caps, 0 Refill(s), Pharmacy: [id number], 2 caps Oral TID,PRN:Cough/ Congestion Start Date: 09/12/15 Status: Ordered Tylenol PM 1 caps, Oral, Bedtime (once a day), 0 Refill(s) Start Date: 03/30/15 Status: Ordered Zofran 4 mg oral tablet 4 mg 1 tabs, Oral, q8hr, as needed for nausea/vomiting, 0 Refill(s) Start Date: 04/18/15 Status: Ordered Results Chemistry Most recent to 1 oldest [Reference Range]: Sodium Lvl [135-144 142 mEq/L mEq/L] (12/12/15 9:58 AM) Potassium Lvl 4.7 mEq/L [3.5-5.2 mEq/L] (12/12/15 9:58 AM) Chloride [99-111 104 mEq/L mEq/L] (12/12/15 9:58 AM) CO2 [22-31 mEq/L] 29 mEq/L (12/12/15 9:58 AM) AGAP [3-20] 9 (12/12/15 9:58 AM) BUN [10-20 mg/dL] 15 mg/dL (12/12/15 9:58 AM) Glucose Lvl [70-99 104 mg/dL mg/dL] *HI* (12/12/15 9:58 AM) Creatinine Lvl 0.79 mg/dL [0.57-1.11 mg/dL] (12/12/15 9:58 AM) eGFR [>60 mL/min] >60 mL/min 1 (12/12/15 9:58 AM) Calcium Lvl 9.8 mg/dL [8.9-10.5 mg/dL] (12/12/15 9:58 AM) Albumin Lvl [3.4-4.8 4.5 gm/dL gm/dL] (12/12/15 9:58 AM) Total Protein 6.5 gm/dL [6.0-7.6 gm/dL] (12/12/15 9:58 AM) Globulin [1.8-4.0 2.0 gm/dL gm/dL] (12/12/15 9:58 AM) ALT [0-55 U/L] 11 U/L (12/12/15 9:58 AM) AST [5-34 U/L] 18 U/L (12/12/15 9:58 AM) Alk Phos [40-150 149 U/L U/L] (12/12/15 9:58 AM) Bili Total [0.2-1.2 0.7 mg/dL mg/dL] (12/12/15 9:58 AM) Chol [0-199 mg/dL] 173 mg/dL (12/12/15 9:58 AM) Trig [0-149 mg/dL] 130 mg/dL (12/12/15 9:58 AM) HDL [40-84 mg/dL] 73 mg/dL (12/12/15 9:58 AM) LDL [0-130 mg/dL] 74 mg/dL (12/12/15 9:58 AM) VLDL Cholesterol 26 mg/dL [0-28 mg/dL] (12/12/15 9:58 AM) Cardiac Risk 2.4 [0.0-5.0] (12/12/15 9:58 AM) 1Result Comment: Multiply eGFR results by 1.21 for race. Immunizations Vaccine Date Refusal Reason influenza virus [...] use per day: Pack Assessment and Plan Extracted from: Title: Office Visit Note Author: Milly Gonsalez DO Date: 12/12/15 Assessment/Plan Encounter for immunization Flu shot provided today. Ordered: Office Visit Level 4 Est 92040 H/O small bowel obstruction Currently doing well. Ordered: Office Visit Level 4 Est 95789 Other hyperlipidemia CMP and FLP today with further recommendations after results. Continue atorvastatin unless otherwise indicated by lab work, return to clinic 6 months. Ordered: Comprehensive Metabolic Panel Lipid Panel Office Visit Level 4 Est 64359
--- NOTE | 2016-07-23 20:19 | ERPDOC ---
Departure Disposition Decision Date: July 23, 2016 Disposition Decision Time: 21:42 Disposition: 01 DISCHARGED HOME, SELF-CARE Impression Impression Impression: Primary Impression: Diarrhea Severity: Mild Condition: Stable Seen By: Mid-level only Referrals: ANGELIKA GONSALEZ DO (Family) Patient Instructions: Acute Diarrhea (ED) Problems/Meds/Labs Reviewed?: Yes Medications reviewed and manag: Yes Additional Instructions: 1. Follow up with Dr. Gonsalez office in am for GI panel results 2. Continue to drink fluids at least 8 glasses water daily 3. Do not use more Imodium 4. Do not use laxatives or Miralax Follow up care ordered?: Yes Mental Status: Alert, Oriented HPI - Abdominal Pain General Chief Complaint: Nausea,Vomiting,Diarrhea Stated Complaint: DIARRHEA Time Seen by Provider: 20:18 Source: patient, family History/Exam Limitations: no limitations HPI - Abdominal Pain Initial Comments Abiola is an 81 year old female who comes to the ER with CC: loose stools for four days and tonight had two green stools. This worried her. She took two Imodium at home this evening. Normally takes Miralax daily but has not taken since this started. No recent antibiotics. No known exposures although did recently go to the [place]. No foreign travel. Denies n/v. Denies abdominal pain. Denies fevers. Denies blood in stool. Denies black or tarry stools. Drinking well. Eating well. Occurred At: home Onset: Changing over time Duration: other (4 days) Pain Scale: Now & Worst: 0/10 Associated Symptoms: denies symptoms Hx of Similar Symptoms: No Allergies: Coded Allergies: No Known Allergies (Unverified , 01/23/16) Past History Patient Surgical History 10-05-2015 Right Inguinal hernia repair with mesh, Lisa 03-22-2015 lap tristan converted to open due to adhesions, with CDE and t-tube, Lisa 01-11-2010 colonoscopy, tubular adenoma x1 and hyperplastic polyps x3, diverticulosis. 1997 , 2001, 2004, colonoscopies all with adenomatous polyps tonsillectomy appendectomy with sigmoid resection incisional hernia with mesh bilateral salpingoopherectomy, pt states she has her uterus ssigmoid colon resection bilateral cataracts\ breast biopsy Past Medical History Metabolic: cancer, hypercholesterolemia Respiratory: COPD, pneumonia GI: GERD, constipation Female: UTI Neurological: migraines Musculoskeletal: osteoarthritis Hematologic: anemia Psychological: depression Surgical History General: appendix, colonoscopy, gallbladder, hernia, other, tonsils Reproductive/: hysterectomy Family History Family PMH: FOUND: CAD, COPD, cancer, other Vaccines Hx Influenza Vaccination: No Hx Pneumococcal Vaccination: Yes (2011) Hx Tetanus, Diptheria, Pertuss: Yes (unknown) Social History Smoking Status: Current every day smoker Does patient use chewing tobac: No # of Packs/Tins per Day: 0.5 # of Years: 60+ Substance Use Type: does not use Alcohol Intake: none Marital Status: Current Occupational Status: retired Review of Systems Constitutional Constitutional: DENIES: fever Cardiovascular Cardiac: DENIES: chest pain, dyspnea on exertion GI Upper Abdomen: DENIES: heartburn/indigestion, hematemesis, nausea, pain, vomiting Lower Abdomen: diarrhea, DENIES: blood in stool, melena, pain, painful BM General: DENIES: dysuria Musculoskeletal General: DENIES: pain Neurological General: DENIES: headache All other Systems All Other Systems: Reviewed and Negative Physical Exam General General Nourishment: well nourished, well developed, appears stated age, no acute distress Vitals and Pain First Documented Vital Signs Date Time Temp Pulse Resp B/P Pulse Ox O2 Delivery O2 Flow Rate FiO2 07/23/16 20:12 98.0 84 20 140/74 92 Room Air Weight: Kilograms: Height (feet): 5 Height (inches): 1.00 Triage Pain Scale: Eyes (brief) Eyes Brief: found: PERRL, not found: scleral icterus ENMT (brief) ENMT Brief: FOUND: mucosa moist Neck (brief) Neck: NOT FOUND: thyromegaly Respiratory (brief) Respiratory: FOUND: clear all de león, equal bilaterally Cardiovascular (brief) Cardiac: FOUND: regular rate, regular rhythm Abdomen (brief) Abdominal Brief: FOUND: bowel normo active x4, soft, NOT FOUND: distended, pulsatile mass, tender Lymphatic (brief) Lymphatic Brief: NOT FOUND: lymphedema Integumentary (brief) Integumentary Brief: FOUND: dry, pink, warm Psychiatric (brief) Psychiatric Brief: FOUND: alert, attentive, normal affect, oriented Differential Diagnoses Considering: C-Difficule Colitis, Viral Syndrome Progress Results/Orders Orders Procedure Category Date Status Time Gi Panel, Pcr, Stool LAB 5/16/17 Complete 20:40 Lab Results Laboratory Tests Test 07/23/16 20:43 Stool Cyclospora species Detection Negative Stool Rotavirus A PCR Negative Stool Adenovirus (PCR) Negative Stool Astrovirus (PCR) Negative Stool Campylobacter PCR Negative Stool C. difficile Toxin (PCR) Detected Stool Cryptosporidium PCR Negative Stool E. coli Shiga Toxins Negative Stool E coli O157 PCR N/a Stool Enterotoxigenic Ecoli PCR Negative Stool Enteropathogenic E. coli (PCR Negative Stool Enteroaggregative E. coli PCR Negative Stool Entamoeba (PCR) Negative Stool Giardia Lamblia PCR Negative Stool Salmonella PCR Negative Stool Sapovirus (PCR) Negative Stool Plesiomonas shigelloides PCR Negative Stool Shigella/EIEC (PCR) Negative Stool Yersinia enterocolitica (PCR) Negative Stool Vibrio (PCR) Negative Stool Vibrio cholera (PCR) Negative Stool Norovirus GI/GII PCR Negative Progress Progress 2042- stool specimen obtained and sent for gi panel. Information provided on possibility of cdiff or viral pathogens. Discussed need for medication if cdiff. 214- patient and family member do not want to wait any longer for gi panel to result. agree to go home and f/u pcp. 2313 - GI panel shows C DIFF. Rx [facility] to [facility] for Flagyl 500 mg q tab q8h X 10 days. Nurses to call patient in am to educate on diagnosis and advise of jose. TAMARA MARTINI APRN July 23, 2016 20:19
--- OUTSIDE RECORDS SUMMARY | 2016-07-23 20:36 | XMS REPORT | Continuity of Care Document ---
Author Author [facility] Organization [facility] Address Unknown Phone Unavailable Allergies Medications Problems Procedures Results Encounters ACCT No. Visit Date/Time Discharge Status Pt. Type Provider Facility Loc./Unit Complaint [id number] 06/01/2013 08:45:00 06/01/2013 23 :59:59 [facility] [id number] 05/24/2013 09:28:00 05/24/2013 23 :59:59 [facility] Outpatient [id number] 01/05/2013 13:42:00 01/05/2013 23 :59:59 [facility] Outpatient
--- OUTSIDE RECORDS SUMMARY | 2016-07-23 20:37 | XMS REPORT | Continuity of Care Document ---
Author Author [facility] Organization [facility] Address Unknown Phone Unavailable Support Name Relationship Address Phone ANDREW SUE MD Caregiver [address] [place] [address] [place], [place] [id number] JAVI MATTHEWS MD Caregiver [address] [place] [phone] LOBO GARCIA MD Caregiver [address] [place] [address] [place] [phone] BAL CHÁVEZ Next Of Kin [address] [facility] [address] [place] [address] Insurance Providers Payer Name Policy Number Subscriber Name Relationship Medicare [id number] Abiola Chávez 18 Self Medicare Supp Wps [id number] Bal Chávez 01 Spouse Advance Directives Directive [...] your symptoms return, you could contact the consumer safety officer nurse through your home health agency, or [...] F (96.8 - 99.1) Temperature (Calculated Celsius) 36.06682 degrees C (36.0 - 37.3) Temperature Source [...] 20, 2014 5:21am 5.1 % N 0-9.0 DS-Xbt-L-Type Natriuretic Peptide March 14, 2014 9:55pm 528 [...] Has specimen been collected/obtained? Y Urine Specific [place] March 15, 2014 9:55pm 1.025 - Has [...] Diphtheroid Bacillus Name: ABIOLA CHÁVEZ Unit #: [id number] : 1935 Sex: F DISCHARGE SUMMARY Admit Date: 03/14/14 Report #: [id number] General Date Date DATE: 03/21/14 TIME: 13:53 Attending Physician Andrew Sue MD Admitting Physician Andrew Sue MD Consulting Physician [facility] Admitting Diagnosis (1) COPD exacerbation Status: Acute [...] has been too ill. She presented to [facility] emergency department on March 14 for evaluation, [...] services and this is set up through [facility] for her return to home. She has a nebulizer at home and rxs are given for this. An appointment is given for followup with Dr Matthews next week. She is instructed to abstain from smoking. Should her symptoms return she could contact the consumer safety officer nurse through [facility], contact Dr Matthews through the office or [...] 03/21/14 Reported Medications Ergocalciferol (Vitamin D)400 Unit [id number] Unit PO DAILY 01/11/10 Metoclopramide Hcl (Reglan)10 Mg [id number] Mg PO TID 01/10/10 Polyethylene Glycol 3350 [...] procedures. Encounters Encounter Location Date/Time Admitted Inpatient [facility] 03/14/14 11:16pm Recent Diagnosis Influenza A Hypoxia Dehydration Influenza A Acute respiratory insufficiency COPD exacerbation History of colon cancer Osteoarthritis Thrombocytopenia Tobacco dependency Elevated serum creatinine
--- NOTE | 2016-07-23 20:46 | NUR ---
FECAL TEST PT ABLE TO HAVE DIARRHEAL STOOL. COLLECTED AND SENT TO LAB
[2016-07-23 21:50] VITALS: BP 146/81; PULSE 79; RESP 20; TEMP 98; O2SAT 92
--- NOTE | 2016-07-23 21:50 | NUR ---
DEPART PT WANTS TO LEAVE, SHE WILL CONTACT HER PCP IN THE AM FOR GI STOOL RESULTS. PT IS GIVEN DISMISSAL INSTRUCTIONS WITH VERBAL UNDERSTANDING. PT LEAVES AMBULATORY WITH HER FAMILY TO ED EXIT.
--- NOTE | 2016-07-24 11:19 | NUR ---
STOOL CULTURE FOLLOW-UP PATIENT CALLED AND INFORMED OF POSITIVE C-DIFF IN STOOL. EDUCATION GIVEN AND INFORMED ANTIBIOTIC WAS CALLED INTO [facility]. VERBALIZED UNDERSTANDING. NO QUESTIONS OR CONCERNS VOICED AT THIS TIME.
--- NOTE | 2016-07-24 12:24 | NUR ---
RX FLAGYL 500 MG 1 Q 8HRS X 10 DAYS PER WRITTEN ORDER TAMARA MARTINI APRN [facility]
== END 2016-07-23 21:50 | disposition home or self-care (01) ==
LOC: ED 20:12
DX: R19.7 Diarrhea, unspecified (principal)
CPT/HCPCS: 87507

== ENCOUNTER 2016-10-10 18:13 | Inpatient (IN) ==
--- NOTE | 2016-10-10 18:38 | Emergency Department Report ---
Abdominal Pain HPI - General Chief Complaint: Abdominal Pain Stated Complaint: abd pain Time Seen by Provider: 10/10/16 18:30 Source: patient Mode of arrival: ambulatory Limitations: no limitations - History of Present Illness HPI narrative: 81 YO F presents to ED with complaint of bilateral abdominal pain. Patient says she has had intermittent abdominal pain for approx. one month. Says pain comes and goes. Today pain has been more intense and has remained constant. Patient has not seen her PCP for the intermittent abdominal pain over the last month. Last BM yesterday. Patient denies fever, chills, SOB, cough, CP, nausea, vomiting, diarrhea or dysuria. Dr. Gonzalez has done patient's surgeries in the past per patient. MD complaint: abdominal pain Location: LLQ, RLQ Severity: moderate Severity scale (1-10): 4 Quality: aching Radiation: none Migration to: no migration Relieving factors: nothing Exacerbating factors: nothing - Related Data Home Medications Medication Instructions Recorded Confirmed Aspirin [Aspir 81] 81 mg PO DAILY #0 01/10/10 10/10/16 Atorvastatin Calcium 20 mg PO HS #0 06/07/14 10/10/16 Esomeprazole [NEXIUM 20 mg Capsule] 20 mg PO DAILY #0 01/23/16 10/10/16 Multivitamin [Multi-Day Vitamins] 1 tab PO DAILY #0 01/23/16 10/10/16 PEG 3350 17gm PACKET [Miralax] 17 gm PO DAILY 09/03/16 10/10/16 Oxycodone *Ir* [Roxicodone *Ir*] 5 mg PO Q6H PRN 10/10/16 10/10/16 Previous Rx's Medication Instructions Recorded Albuterol Sulfate 1 vial AEROSOL Q6H PRN #150 ml 09/10/15 Allergies Allergy/AdvReac Type Severity Reaction Status Date / Time codeine [Codiene] Allergy Intermediate Chest Verified 10/10/16 18:25 Pressure Review of Systems All systems: reviewed and negative except as stated Gastrointestinal: Reports: as per HPI, abdominal pain PFSH Patient Stated Medical History Cataracts Yes: bilat Chronic Obstructive Pulmonary Yes Disease (COPD) Hiatal Hernia Yes Colon CA Constipation Anemia GERD UTIs Migraines Hypercholesterolemia Pneumonia Surgical History: Lap [facility] [place] [facility]. Breast Bx. Incisional hernia with mesh. Colonoscopy multiple, with adenomatous polyps. Sigmoid colon resection. Tonsillectomy. Bilateral salpingo-oophorectomy (patient still has uterus). Bilateral cataracts - Social History Smoking status: Current every day smoker Current occupational status: retired Physical Exam - Limitations Limitations: no limitations - General General appearance: alert, in no apparent distress - Normal Exams: Head:: Normocephalic without trauma Eyes:: No scleral icterus, irritation ENMT:: No facial trauma, nasal exudates Chest/Respirations:: Clear all de león, with good airflow Cardiovascular:: Regular rate and rhythm, without murmur or gallop Musculoskeletal:: good range of motion, all extremities Neurological:: Patient is alert, and oriented, cranial nerves, motor/sensory/ cerebellar, exams w/o gross deficits, to observation Psychiatric:: Patient exhibits, appropriate attention - Neck Neck exam: Present: trachea midline - Abdominal Exam Abdominal exam: Present: soft, tenderness (TTP bilateral lower abdomen), diminished bowel sounds (x4). Absent: distention, guarding, rebound, rigidity, organomegaly, Rovsing's sign - Skin Skin exam: Present: warm, dry Course - Consultations Consultation #1: I discussed patient's HPI, PMH, labs, VS, CT findings and exam findings with Dr. Dela Cruz. Dr. Dela Cruz will admit inpatient for SBO. Time: 21:15 Vital Signs Temperature 97.6 F 10/10/16 18:25 Pulse Rate 83 10/10/16 18:25 Respiratory Rate 17 10/10/16 18:25 Blood Pressure 131/71 10/10/16 18:25 Pulse Oximetry 95 10/10/16 18:25 Temperature 97.6 F 10/10/16 18:25 Pulse Rate 83 10/10/16 18:25 Respiratory Rate 17 10/10/16 18:25 Blood Pressure 131/71 10/10/16 18:25 Pulse Oximetry 95 10/10/16 18:25 Abdominal Pain - [facility] Narrative Medical decision making narrative: Patient declined pain medication. WBC 14.4 (no shift), other labs unremarkable. After patient returned from CT she stated she was nauseated. Nausea has resolved with zofran 4mg IV. CT findings indicate SBO. I discussed labs and CT findings with patient/daughter and answered question. Patient agrees with admission to the hospital for SBO. Patient still declines pain medication. - Differential Diagnosis Differential diagnosis: Likely: abdominal pain, constipation, diverticulitis, small bowel obstruction - Medical Records Attestation: I reviewed the patient's medical records. - Lab Data Attestation: I reviewed the patient's lab results. Result diagrams: 10/10/16 18:59 10/10/16 18:59 - Radiology Data Attestation: I reviewed the patient's radiology results. CT abdomen/pelvis: Small bowel obstruction (V-RAD) Disposition Clinical Impression: Small bowel obstruction Disposition: [address] [facility] [place] Acute Care Condition: Stable - Seen By: midlevel
[2016-10-10] MEDS: SALINE FLUSH 10ml SYRINGE IVF PRN ×4 (19:02→23:53)
[2016-10-10] MEDS ORDERED: SALINE FLUSH 10ml SYRINGE ONE (19:59)
[2016-10-10] MEDS ORDERED: NS 100 ML ONE (19:59)
[2016-10-10] MEDS ORDERED: IOHEXOL 300mg/ml 75ml INJECTION ONE (19:59)
[2016-10-10] MEDS ORDERED: ONDANSETRON 4 MG/2 ML INJECTION IVP ONE (20:21)
[2016-10-10] MEDS ORDERED: NS 500 ML IV ONE (21:07)
[2016-10-10] MEDS ORDERED: ACETAMINOPHEN 325 MG SUPPOSITORY PR PRN (22:28)
[2016-10-10] MEDS ORDERED: MORPHINE SULFATE 2 MG SYRINGE IVP PRN (22:28)
[2016-10-10] MEDS: NS 1,000 ML IV SCH (22:34)
[2016-10-10 22:53] VITALS: BMI 19.5
[2016-10-10] MEDS: FentaNYL 250 MCG/5 ML INJECTION IVP PRN (23:53)
--- NOTE | 2016-10-11 00:07 | History & Physical Report ---
History of Present Illness Date: 10/11/16 Chief complaint: Abdominal pain HPI: 81 YO F with PMH of multiple abdominal surgeries, Dr. Gonzalez has done patient 's surgeries in the past per patient, presented to ED with complaint of bilateral abdominal pain. Patient says she has had intermittent abdominal pain for approx. one month. Says pain comes and goes. Today pain has been more intense and has remained constant. Patient has not seen her PCP for the intermittent abdominal pain over the last month. Last BM yesterday. Patient denies fever, chills, SOB, cough, CP, nausea, vomiting, diarrhea or dysuria. She presented to the ED today because her pain was at a 10/10. She refused pain medications in the ED, but did take some zofran. CT abd shows mild dilation of her small bowel consistent with SBO. She was admitted for supportive care and monitoring for resolution of symptoms. Review of Systems Comprehensive ROS: completed and no additional positive findings except those as stated PFSH Patient Stated Medical History Cataracts Yes: bilat Chronic Obstructive Pulmonary Yes Disease (COPD) Sleep Apnea Yes Gastroesophageal Reflux Yes Disease Hiatal Hernia Yes Obstructive Bowel Yes Osteoarthritis Yes: Spine and hands Surgical History: Lap [facility] [place] [facility]. Breast Bx. Incisional hernia with mesh. Colonoscopy multiple, with adenomatous polyps. Sigmoid colon resection. Tonsillectomy. Bilateral salpingo-oophorectomy (patient still has uterus). Bilateral cataracts - Social History Smoking status: Current every day smoker Medications Home Medications Medication Instructions Recorded Confirmed Type Aspirin [Aspir 81] 81 mg PO DAILY #0 01/10/10 10/10/16 History Atorvastatin Calcium 20 mg PO HS #0 06/07/14 10/10/16 History Esomeprazole [NEXIUM 20 mg Capsule] 20 mg PO DAILY #0 01/23/16 10/10/16 History Multivitamin [Multi-Day Vitamins] 1 tab PO DAILY #0 01/23/16 10/10/16 History PEG 3350 17gm PACKET [Miralax] 17 gm PO DAILY 09/03/16 10/10/16 History Oxycodone *Ir* [Roxicodone *Ir*] 5 mg PO Q6H PRN 10/10/16 10/10/16 History Allergies Allergy/AdvReac Type Severity Reaction Status Date / Time codeine [Codiene] Allergy Intermediate Chest Verified 10/10/16 18:25 Pressure Exam Vital Signs: Temperature 96.9 F 10/10/16 22:52 Pulse Rate 76 10/10/16 23:45 Respiratory Rate 14 10/10/16 23:45 Blood Pressure 140/68 H 10/10/16 22:52 Pulse Oximetry 92 10/10/16 23:45 Oxygen Delivery Method Room Air Height: 1.55 m Weight: 47 kg Body Mass Index: 19.5 - Constitutional Present: mild distress (due to abdominal pain) - Routine Respiratory Exam Present: CTA bilaterally. Absent: wheezes - Routine Cardiovascular Exam Present: RRR. Absent: murmur - Routine Abdominal Exam Present: soft, surgical scars - Routine Extremities Exam Present: normal capillary refill - Routine Skin Exam Present: dry, warm - Routine Neurological Exam Present: alert, oriented X3, CN II-XII intact Results - Labs CBC & Chem 7: 10/10/16 18:59 10/10/16 18:59 Assessment and Plan (1) Small bowel obstruction Current visit: Yes Status: Acute 10/11/16 00:19 Likely due to abdominal adhesions. Patient declines pain medications at this time. Will order fentanyl 25mg Q2H PRN with zofran 4mg Q4h PRN. Patient NPO at this time, do not feel that she needs NGT decompression at this time. Continue supportive care. Gen surg consult in the AM. DVT Prophylaxis: SCD's Resuscitation Status: Full Code Sepsis Assessment - Evaluation Sepsis screening result: No Definite Risk Hospital Course Summary Disclaimer: The visit summary below is not to be considered part of the above Progress Note.
[2016-10-11] MEDS ORDERED: ALBUTEROL 2.5mg/3ml (0.083%) NEB AEROSOL PRN ×2 (00:26→07:51)
[2016-10-11] MEDS: FentaNYL 250 MCG/5 ML INJECTION IVP PRN (03:58)
[2016-10-11] MEDS: SALINE FLUSH 10ml SYRINGE IVF PRN (05:39)
[2016-10-11] MEDS: ONDANSETRON 4 MG/2 ML INJECTION IVP PRN ×2 (05:39→13:10)
[2016-10-11] MEDS ORDERED: KETOROLAC 15 MG/ML INJECTION IVP ONE (07:38)
[2016-10-11] MEDS: PANTOPRAZOLE 40 MG INJECTION IVP SCH ×2 (07:57→09:07)
--- NOTE | 2016-10-11 08:03 | CT Scan Report ---
Indication: bilateral lower abdominal pain PROCEDURE: CT abdomen pelvis w con: Encounter: Initial Comparison: CT abdomen and pelvis dated November 29, 2015 Technique: Axial CT images were performed through the abdomen and pelvis after the administration of intravenous contrast. Coronal and sagittal two-dimensional reformats. Automated Exposure Control and Iterative Reconstruction dose reducing techniques were utilized. Contrast: Omnipaque 300 67 mL Findings: Intrathoracic stomach. Small probable liver cysts. Mild intrahepatic bile duct dilatation likely related to age and prior cholecystectomy. The spleen shows a granuloma but is otherwise normal. Pancreas is grossly normal as are the adrenal glands. Simple renal cysts. Atherosclerotic arterial plaque. Dilated small bowel loops in the abdomen and pelvis. Uterus is grossly normal. Moderate stool in the colon. There are some decompressed distal small bowel loops with a transition point in the left pelvis seen on coronal image #16 and axial image 48. This appears to be the same area of transition as seen on the comparison study with a similar degree of bowel dilatation. Bone windows show degenerative changes. Impression: Acute distal small bowel obstruction, similar to November 2015. Surgical evaluation is recommended. There is a preliminary report by [facility]. .
--- NOTE | 2016-10-11 08:07 | General Surgery Consult Note ---
Consult date: 10/11/16 Attending Physician: Janett Dela Cruz MD Reason for consult: abdominal pain PFSH Patient Stated Medical History Colono cancer 1979 Cataracts Yes: bilat Chronic Obstructive Pulmonary Yes Disease (COPD) Sleep Apnea Yes Gastroesophageal Reflux Yes Disease Hiatal Hernia Yes Obstructive Bowel Yes Osteoarthritis Yes: Spine and hands Surgical History: Open cholecystectomy with common bile duct exploration & T- tube 03-22-2015 (Lisa). Right inguinal hernia repair 10-05-2015 (Lisa) . Breast Bx. Incisional hernia with mesh. Sigmoid colon resection for colon cancer . colonoscopy tubular adenoma x1 01-11-2010. Tonsillectomy. Bilateral salpingo-oophorectomy (patient still has uterus). Bilateral cataracts Family History: father - leukemia sister - HTN - Social History Smoking status: Current every day smoker Household members: none ( of about 2 years) Medications Home Medications Medication Instructions Recorded Confirmed Type Aspirin [Aspir 81] 81 mg PO DAILY #0 01/10/10 10/10/16 History Atorvastatin Calcium 20 mg PO HS #0 06/07/14 10/10/16 History Esomeprazole [NEXIUM 20 mg Capsule] 20 mg PO DAILY #0 01/23/16 10/10/16 History Multivitamin [Multi-Day Vitamins] 1 tab PO DAILY #0 01/23/16 10/10/16 History PEG 3350 17gm PACKET [Miralax] 17 gm PO DAILY 09/03/16 10/10/16 History Oxycodone *Ir* [Roxicodone *Ir*] 5 mg PO Q6H PRN 10/10/16 10/10/16 History Allergies Allergy/AdvReac Type Severity Reaction Status Date / Time codeine [Codiene] Allergy Intermediate Chest Verified 10/10/16 18:25 Pressure Review of Systems 10-point ROS: negative except for HPI and the following: - Respiratory Respiratory: Present: cough (smoker) - Gastrointestinal Gastrointestinal: Present: constipation (uses Miralax) - Vital Signs Last Vital Signs Temp 96.8 F 10/11/16 07:14 Pulse 80 10/11/16 07:14 Resp 16 10/11/16 07:14 BP 169/86 H 10/11/16 07:14 Pulse Ox 91 10/11/16 07:14 - Laboratory Result Diagrams: 10/11/16 04:21 10/11/16 04:21 General Surgery Results - Results Labs: 10/11/16 04:21 10/11/16 04:21 Hospital Course Summary Disclaimer: The visit summary below is not to be considered part of the above Progress Note. Sepsis Assessment - Evaluation Sepsis screening result: No Definite Risk
[2016-10-11] MEDS: NS 1,000 ML IV SCH ×2 (09:07→20:04)
[2016-10-11] MEDS ORDERED: DIATRIZOATE MEGLUMINE/SOD. (66%/10%) 120ml SOLN ONE ×2 (09:30→09:32)
--- NOTE | 2016-10-11 14:30 | Consultation ---
DATE OF CONSULTATION 10/11/2016 FINDINGS Mrs. Chávez is an 81-year-old female who is well known to my surgical practice. I have taken care of the patient as well as her in the past. Patient informs me that she has had a component of some abdominal pain for the last several months. This pain has been very similar to the pain that she has experienced requiring prior admission as a result of a partial small bowel obstruction. Patient states that she has been nauseated but has not been experiencing any bouts of emesis. Pain continued to increase in nature to the point that she "couldn't stand it anymore" and presented to our ER facility for further evaluation. Patient had underwent a CT scan that did reveal evidence for small bowel obstruction. Patient has been subsequently admitted to our facility for further care. Upon entering the room this morning, she was upright and conversant. She stated that she was feeling somewhat better. PAST MEDICAL HISTORY Performed by my nurse practitioner, Raciel Garcia. PAST SURGICAL HISTORY Performed by my nurse practitionerRaciel. MEDICATIONS Performed by my nurse practitionerRaciel. ALLERGIES Performed by my nurse practitionerRaciel. SOCIAL HISTORY Performed by my nurse practitionerRaciel. FAMILY HISTORY Performed by my nurse practitionerRaciel. REVIEW OF SYSTEMS Performed by my nurse practitionerRaciel. PHYSICAL EXAMINATION GENERAL: Mrs. Chávez is an 81-year-old female who this morning did not appear to be in acute distress. VITALS: Temperature 97.8. Pulse 83. Respirations 16. Blood pressure 153/88. SaO2 90% on room air. HEENT: Normocephalic. Pupils are equally round and react to light and accommodation. NECK: Supple without lymphadenopathy. CHEST: Clear to auscultation bilaterally. HEART: Regular rate and rhythm. Normal S1, S2, without gallops, murmurs or clicks. ABDOMEN: Although the patient did have radiographic evidence for bowel obstruction, her abdomen was not significantly distended. Palpation of the abdomen did reveal some generalized abdominal discomfort with more pain actually being located within the left lower quadrant. There was perhaps a slight component of some voluntary guarding. There was however no evidence for involuntary guarding or rebound tenderness. I did not appreciate any evidence for hepatomegaly or other abnormal masses. EXTREMITIES: Without clubbing, cyanosis, or edema. NEURO: Cranial nerves II-XII grossly intact. Patient without focal, motor, or sensory deficits. LABORATORY/RADIOGRAPHIC EVALUATION The patient had a CBC this morning. Her white count was elevated at 14.2. No significant left shift. BMP obtained and found to be without marked abnormalities. Radiographically, the patient had a CT scan of her abdomen and pelvis obtained. One can see a fairly large hiatal hernia within the right retrocardiac region. The stomach itself does appear to be distended in nature. The distention continues throughout the small bowel and into the pelvis. It does appear that her most distal small bowel just proximal to the cecum is collapsed and there does appear to be a transition point present within the lower abdomen. Small bowel within the pelvis is dilated nature. Findings are consistent with that of acute distal small bowel obstruction similar to prior CT scan in November 2015. ASSESSMENT 81-year-old female with probable small bowel obstruction. PLAN The patient at this time is without an acute surgical abdomen. I would recommend that we go ahead and place an NG and decompress her stomach and proximal small bowel. I would then recommend proceeding with a "Gastrografin challenge". I would recommend placing Gastrografin per NG and clamping the NG and taking serial films to see if the contrast does progress through her GI tract. Hopefully, as in November of last year, the contrast will progress through her GI tract and surgical intervention will not be needed. We will await her Gastrografin small bowel follow-through results and proceed accordingly. If, on the other hand, the contrast does not progress, the patient may ultimately require exploratory laparotomy with lysis of adhesions. POLINA
--- NOTE | 2016-10-11 18:32 | XRay Report ---
Indication: small bowel obstruction PROCEDURE: XR small bowel follow through: Encounter: Initial Comparison: Small bowel series dated November 30, 2015 Findings: Water-soluble contrast was administered via the patient's nasogastric tube. The nasogastric tube is seen within the intrathoracic stomach. For the first 1.5 hours of imaging contrast remains within the intrathoracic stomach. At 2 1/2 hours after administration contrast begins traversing the moderately dilated small bowel. Contrast reaches the dilated pelvic loops of small bowel by the 3 1/2 hour ira. Contrast does not significantly progressed from this point between 3 1/2 and 6 1/2 hours following administration. There is no definite colonic contrast seen at the 6 1/2 hour time point although the distal contrast column is somewhat dilute. Impression: Delayed intestinal transit time with findings that could represent a high-grade partial or complete small bowel obstruction. Follow-up imaging will be obtained tomorrow morning to further evaluate. Case was discussed with Dr. Gonzalez during the exam. .
[2016-10-11] MEDS: KETOROLAC 15 MG/ML INJECTION IVP PRN (18:44)
[2016-10-11] MEDS: METOCLOPRAMIDE 10mg/2ml INJECTION IVP PRN (18:45)
[2016-10-12] MEDS: METOCLOPRAMIDE 10mg/2ml INJECTION IVP PRN ×2 (01:41→22:25)
[2016-10-12] MEDS: KETOROLAC 15 MG/ML INJECTION IVP PRN ×3 (01:42→22:26)
[2016-10-12] MEDS: SALINE FLUSH 10ml SYRINGE IVF PRN ×2 (01:46→08:24)
[2016-10-12] MEDS: NS 1,000 ML IV SCH (06:24)
[2016-10-12] MEDS: PANTOPRAZOLE 40 MG INJECTION IVP SCH (08:21)
--- NOTE | 2016-10-12 10:08 | Progress Note ---
DATE 10/11/2016 FINDINGS Abiola this evening stated that she was feeling better. Her abdominal pain has improved since admission. She is requesting some liquids "if possible." She has not had any flatus or BM. VITALS: Afebrile. Normotensive. ABDOMEN: Palpation of the abdomen on evening rounds reveals it to be soft with some minimal tenderness still being present within the left lower quadrant. There is no evidence for involuntary guarding or rebound. Remaining abdomen is completely soft and nontender. Radiographically, the contrast initially was "sitting" within the stomach for a prolonged period of time. The patient was then placed upright as well as rotated towards her left. Contrast then begin to empty out of her stomach and has progressed into the pelvic region. There is no obvious contrast at this point time, however, into the colon. ASSESSMENT 81-year-old female with a small bowel obstruction, and the patient remains to be without acute surgical abdomen. PLAN Given the fact that her abdominal pain has improved and the contrast has progressed at least into the pelvis, I would not recommend proceeding with surgical intervention this evening. Will repeat plain films tomorrow and continue to follow closely with physical examination. If the contrast does not progress into her colon, may ultimately need to proceed with surgical intervention/exploratory laparotomy. Family did inform me that upon her prior open cholecystectomy surgery was difficult as a result of her "previously placed piece of mesh." Will try to review prior operative note in past EMR system. POLINA
--- NOTE | 2016-10-12 10:34 | XRay Report ---
Indication: bowel obstruction, paraesophageal hernia XR KUB w upright: Comparison: 10/11/2016 small bowel Technique: Supine and erect images provided Findings: Patient continues to show dilated loops of bowel. This is still somewhat disproportionate to the small bowel although, the contrast has reached the large bowel with a large amount of contrast identified in the pelvis. Numerous air-fluid levels are identified. Patient shows an NG tube which appears to be coiled in the large hiatal hernia above the diaphragm. Impression: 1. Patient continues to show multiple random air fluid levels with abnormally dilated loops of bowel consistent with generalized ileus versus distal small bowel obstruction. 2. Patient shows an NG tube coiled in a large hiatal hernia above the diaphragm. .
[2016-10-12] MEDS ORDERED: MORPHINE SULFATE 4 MG SYRINGE IVP PRN (10:53)
--- NOTE | 2016-10-12 11:54 | Progress Note ---
<Zoe Singh V - Last Filed: 10/12/16 11:48> Subjective: Abiola is seen today in follow up for small bowel obstruction. She is resting in bed with NG tube intact. She states that overall her abdominal pain does feel better today. Abdomen is firm and mildly distended with hypoactive bowel sounds. She otherwise has no complaints of pain or dyspnea. She does note some drainage and requests home nebulizer. Objective Vital signs: Temperature 96.2 F L 10/12/16 07:00 Pulse Rate 86 10/12/16 07:00 Respiratory Rate 16 10/12/16 07:00 Blood Pressure 161/81 H 10/12/16 07:00 Pulse Oximetry 90 10/12/16 07:00 Oxygen Delivery Method Room Air Weight: 49.9 kg - Constitutional Present: no acute distress, well nourished, well developed - Routine HEENT Exam Eye: Present: EOMI ENT: Present: mucous membranes moist, dentition normal - Routine Respiratory Exam Present: CTA bilaterally. Absent: wheezes - Routine Cardiovascular Exam Present: RRR, S1, S2. Absent: murmur - Routine Abdominal Exam Present: distended. Absent: normoactive bowel sounds (Hypoactive), tenderness - Routine Extremities Exam Present: normal capillary refill - Routine Back/Spine/Pelvis Exam Back/Spine: Present: full ROM - Routine Skin Exam Present: intact, dry, warm - Routine Neurological Exam Present: alert, oriented X3, CN II-XII intact - Routine Lymphatic Exam Lymphatic: Absent: adenopathy - Routine Psychiatric Exam Present: normal affect Results - Labs CBC & Chem 7: 10/12/16 10:53 10/12/16 10:53 Assessment and Plan (1) Small bowel obstruction Current visit: Yes Status: Acute 10/11/16 00:19 Likely due to abdominal adhesions. Patient declines pain medications at this time. Will order fentanyl 25mg Q2H PRN with zofran 4mg Q4h PRN. Patient NPO at this time, do not feel that she needs NGT decompression at this time. Continue supportive care. Gen surg consult in the AM. Assessment and Plan: 10/12/13 Continue with gut rest and NG tube inplace. Remains NPO. She continues to utilize Toradol for pain control. Morphine is available, however, patient has declined. Continue with Protonix IV daily for GI protection. Zofran and Reglan available as needed for nausea Cytosis has resolved, white count 7.1 today. However, bands are up to 12%. Noted hypernatremia, sodium 149. Will change IV fluids to 1/2 NS at 100 ml/hr Overall appears to be medically stable. Appreciate consultation by Dr. Gonzalez for surgical evaluation and recommendations. Check CBC and BMP tomorrow morning to follow blood counts, renal function and electrolytes. Catalino further orders and plan of care with attending, Dr. Nolasco Sepsis Assessment - Evaluation Sepsis screening result: No Definite Risk Hospital Course Summary Disclaimer: The visit summary below is not to be considered part of the above Progress Note. Hospital Course: 10/12/16 11:54 10/12/13 Continue with gut rest and NG tube inplace. Remains NPO. She continues to utilize Toradol for pain control. Morphine is available, however, patient has declined. Continue with Protonix IV daily for GI protection. Zofran and Reglan available as needed for nausea Cytosis has resolved, white count 7.1 today. However, bands are up to 12%. Noted hypernatremia, sodium 149. Will change IV fluids to 1/2 NS at 100 ml/hr Overall appears to be medically stable. Appreciate consultation by Dr. Gonzalez for surgical evaluation and recommendations. Check CBC and BMP tomorrow morning to follow blood counts, renal function and electrolytes. Catalino further orders and plan of care with attending, Dr. Nolasco <Kervin Nolasco - Last Filed: 10/12/16 16:54> Objective Vital signs: Temperature 97.2 F 10/12/16 15:00 Pulse Rate 72 10/12/16 15:00 Respiratory Rate 22 10/12/16 15:00 Blood Pressure 151/84 H 10/12/16 15:00 Pulse Oximetry 87 L 10/12/16 15:00 Oxygen Delivery Method Room Air Results - Labs CBC & Chem 7: 10/12/16 10:53 10/12/16 10:53 Assessment and Plan (1) Small bowel obstruction Current visit: Yes Status: Acute DVT Prophylaxis: SCD's GI Prophylaxis: Protonix Assessment and Plan: Pt is doing better today with her NGT at low intermittent suction. She is being followed by surgery. Last VSS show elevated BP and low SaO2 @ 87% on Room Air. WBC has normalized today and her abdominal pain is less. BUN/Cr ratio is high. Na is high @ 149. Physical exam Pt is awake alert oriented x 3, conversant and coherent. Mucosas are dry Neck supple No JVD Chest - fair air entry bilaterally. Heart - RRR Abd - Still diffusely tender. NGT draining copiuos ammounts of greenish material. Ext - No edema. Labs As above. DIAGNOSIS 1) SBO in a pt that has H.O SBO and multiple adhesions. - Continue NGT at low intermittent suction - working well, so far 2) DHT - High BUN/Cr ratio - high Na, high fluid loss from NGT. - Follow creatinine very careful - would have to stop Toradol. - Pt has been refusing Opioids. - Agree with current IVF - Check BMP, Mg, later today. 3) Episode of desaturation - add Incentive spirometry and Duonebs - Check ABG now. 4) HTN - Will place a Clonidine patch TTS-1 for now, since pt can not take PO, is dehydrated and prerenal. Add SCD Continue with PPI Hospital Course Summary Disclaimer: The visit summary below is not to be considered part of the above Progress Note.
[2016-10-12] MEDS: 1/2 NS 1,000 ML IV SCH ×2 (12:11→22:17)
[2016-10-12] MEDS ORDERED: CLONIDINE 0.1 MG/24 HR PATCH TD SCH (17:00)
[2016-10-12] MEDS: ALBUTEROL 2.5mg/3ml (0.083%) NEB AEROSOL PRN (17:07)
[2016-10-13] MEDS: KETOROLAC 15 MG/ML INJECTION IVP PRN ×2 (08:34→17:38)
[2016-10-13] MEDS: 1/2 NS 1,000 ML IV SCH ×2 (08:34→17:53)
[2016-10-13] MEDS: PANTOPRAZOLE 40 MG INJECTION IVP SCH (08:34)
[2016-10-13] MEDS: ONDANSETRON 4 MG/2 ML INJECTION IVP PRN (08:35)
[2016-10-13] MEDS ORDERED: ERTAPENEM 1 G in NS 100 ML IV ONE (12:15)
[2016-10-13] MEDS ORDERED: FentaNYL 100 MCG/2 ML INJECTION ONE (12:25)
[2016-10-13] MEDS ORDERED: SUCCINYLCHOLINE 20mg/mL 10mL INJECTION ONE (12:26)
[2016-10-13] MEDS ORDERED: PROPOFOL 0 ML ONE (12:26)
[2016-10-13] MEDS ORDERED: VECURONIUM 10 MG/10 ML VIAL IV ONE (12:26)
[2016-10-13] MEDS ORDERED: PROPOFOL 20 ML ONE (12:26)
[2016-10-13] MEDS ORDERED: SALINE FLUSH 10ml SYRINGE ONE (12:46)
[2016-10-13] MEDS ORDERED: PHENYLEPHRINE INJ 10 MG/ML VIAL IV ONE (12:46)
--- NOTE | 2016-10-13 12:52 | Anesthesia Preoperative Report ---
Anesthesia Preoperative Record - Date and Time Date: 10/13/16 Preoperative Diagnosis: Small Bowel obstruction NPO Since Date: 10/10/16 NPO Since Time: 00:00 (last solid food intake) Allergies/Adverse Reactions: Allergies Allergy/AdvReac Type Severity Reaction Status Date / Time codeine [Codiene] Allergy Intermediate Chest Verified 10/10/16 18:25 Pressure - Vital Signs Vital Signs: Temperature 97.8 F 10/13/16 08:00 Pulse Rate 78 10/13/16 08:00 Respiratory Rate 18 10/13/16 08:00 Blood Pressure 152/73 H 10/13/16 08:00 Pulse Oximetry 92 10/13/16 08:00 Oxygen Delivery Method Nasal Cannula Oxygen Flow Rate 2 Height and Weight: Height 1.55 m Weight 49.7 kg Body Mass Index 19.5 - Medications Inpatient Medications: Current Medications Acetaminophen (Tylenol Supp) 325 - 650 mg [place] Q5HR PRN Albuterol Sulfate (Proventil Neb (0.083%)) 2.5 mg AEROSOL Q6H PRN PRN Reason: Wheezing Last Admin: 10/12/16 17:07 Dose: 2.5 mg Clonidine HCl (Catapres-Tts 1) 0.1 mg TD Q7D@0900 LEONARDO Last Admin: 10/12/16 17:25 Dose: 0.1 mg Clonidine HCl (Catapres Patch Removal) 1 removal TD Q7D LEONARDO Sodium Chloride (1/2 Normal Saline) 1,000 mls @ 100 mls/hr IV .Q10H LEONARDO Last Admin: 10/13/16 08:34 Dose: 100 mls/hr Ketorolac Tromethamine (Toradol Inj) 10 mg IVP Q6H PRN PRN Reason: Pain Stop: 10/16/16 16:57 Last Admin: 10/13/16 08:34 Dose: 10 mg Metoclopramide HCl (Reglan) 5 mg IVP Q6H PRN Last Admin: 10/12/16 22:25 Dose: 5 mg Morphine Sulfate (Morphine Sulfate Inj) 1 - 4 mg IVP Q2H PRN PRN Reason: Pain Ondansetron HCl (Zofran) 4 mg IVP Q6H PRN PRN Reason: Nausea &/or vomiting Last Admin: 10/13/16 08:35 Dose: 4 mg Pantoprazole Sodium (Protonix Iv) 40 mg IVP DAILY [facility] Last Admin: 10/13/16 08:34 Dose: 40 mg Sodium Chloride (Iv Flush) 10 - 80 ml IVF PRN PRN PRN Reason: Flushing Last Admin: 10/12/16 08:24 Dose: 10 ml Home Medications: Home Medications Medication Instructions Recorded Confirmed Type Aspirin [Aspir 81] 81 mg PO DAILY #0 01/10/10 10/10/16 History Atorvastatin Calcium 20 mg PO HS #0 06/07/14 10/10/16 History Esomeprazole [NEXIUM 20 mg Capsule] 20 mg PO DAILY #0 01/23/16 10/10/16 History Multivitamin [Multi-Day Vitamins] 1 tab PO DAILY #0 01/23/16 10/10/16 History PEG 3350 17gm PACKET [Miralax] 17 gm PO DAILY 09/03/16 10/10/16 History Oxycodone *Ir* [Roxicodone *Ir*] 5 mg PO Q6H PRN 10/10/16 10/10/16 History - Medical History Respiratory: Reports: Asthma, Chronic Obstructive Pulmonary Disease (COPD), Sleep Apnea (no CPAP) Gastrointestional: Reports: Obstructive Bowel, Gastroesophageal Reflux Disease ( well controlled) Neuro/Musculoskeletal: Reports: Back Problems, Headaches (history migraines), Other (arthritis) - Surgical History HEENT Surgeries: Reports: Tonsillectomy GI Surgery/Treatments: Reports: Appendectomy, Cholecystectomy, Colon Resection, Hernia Repair Reproductive Surgery/Treatment: Reports: Hysterectomy (ovaries) Anesthesia Reactions: Other (slow to wake up) Hx Family Anesthesia Reaction: No History of Motion Sickness: No - Social History Smoking Status: Current every day smoker packs per day: 0.5 Pack-years: 63 Hx Chewing Tobacco Use: No Second Hand Exposure: No Substance Use Type: does not use Alcohol Intake Frequency: does not drink - Pertinent Findings Laboratory: CBC and BMP 10/13/16 04:46 10/13/16 04:46 BMP 10/12/16 10/13/16 20:58 04:46 Sodium 144 143 Potassium 4.0 4.0 Chloride 110 H 110 H Carbon Dioxide 24 24 BUN 43.0 H 41.0 H Creatinine 0.8 0.8 Glucose 107 89 Calcium 8.8 8.8 - Physical Exam Respiratory Exam: Present: lungs clear (diminished in bases), bilateral breath sounds equal Cardiovascular Exam: Present: regular rate and rhythm - Airway Assessment Mallampati Score: IV TMD: 2 Fingerbreadths Neck Extension: poor Teeth: upper dentures, partial lower dentures, poor dentation Overall Assessment: may be difficult intubation - ASA ASA Score: 3, E - Plan Plan: GA with possible CVL placement Anesthesia: General Inhalation Gases - Discussion Discussion: Discussed risks/options/alternatives of anesthesia including risk of aspiration , post op ventilation and , and questions answered. Patient consents. Nursing pain assessment noted. Present for Discussion: family member Attestation Statement: Prior to the delivery of any anesthetic medication, I examined the patient, developed the plan, obtained the patient's consent and discussed the risk and benefits of the procedure with the patient/guardian. - Additional Information Seen by Anesthesia: Yes
[2016-10-13] MEDS ORDERED: MORPHINE SULFATE 4 MG SYRINGE IVP PRN (13:16)
[2016-10-13] MEDS ORDERED: SALINE FLUSH *Sterile* 10 ML SYRINGE IV ONE (13:48)
[2016-10-13] MEDS ORDERED: GLYCOPYRROLATE 0.4 MG/2 ML INJECTION ONE (14:04)
[2016-10-13] MEDS ORDERED: LIDOCAINE 2% (100mg/5mL) PF 5ml vl ONE (14:06)
[2016-10-13] MEDS ORDERED: LR 1,000 ML IV SCH (14:23)
[2016-10-13] MEDS ORDERED: SUGAMMADEX 200mg/2ml INJECTION IVP ONE (14:32)
--- NOTE | 2016-10-13 14:36 | XRay Report ---
Indication: small bowel obstruction XR KUB w upright: Comparison: 10/12/2016 Technique: Supine and erect films of the abdomen Findings: Patient continues to show an NG tube coiled in the large hernia above the diaphragm. Multiple air-fluid levels and dilated loops of bowel remain. There is some residual contrast material present. Findings to support either a generalized ileus or a low obstruction. No free air was noted on the upright view. Impression: 1. Continued dilated loops of bowel consistent with either an ileus or low obstruction. No free air noted. 2. NG tube tube is coiled on a large hernia above the diaphragm to the right of the midline as it has been on prior studies. .
[2016-10-13] MEDS ORDERED: ONDANSETRON 4 MG/2 ML INJECTION ONE (14:47)
--- NOTE | 2016-10-13 15:16 | General Surgery Procedure Note ---
Date of Procedure: 10/13/16 Surgeon: Lisa Stem Assembler: Gabrielle Anesthesia: General TIVA Pre-op diagnosis: small bowel obstruction Postoperative Diagnosis: same secondary to adhesive band Procedure: exploratory laparotomy with lysis of adhesions Estimated Blood Loss: See Anesthesia Record. Complications: none
--- NOTE | 2016-10-13 16:07 | Anesthesia Postoperative Note ---
- Date and Time Date: 10/13/16 Time: 16:05 - Status Patient Participated in Evaluation: Patient Participated in Person Vital Signs: Temperature 97.2 F 10/13/16 15:40 Pulse Rate 81 10/13/16 15:40 Respiratory Rate 14 10/13/16 15:40 Blood Pressure 121/58 10/13/16 15:40 Pulse Oximetry 95 10/13/16 15:40 Oxygen Delivery Method Nasal Cannula Oxygen Flow Rate 3 Respiratory Function: Airway Patent, Regular Respirations Cardiovascular Function: Regular Pulse Mental Status: Lethargic (easily arousable to voice and stimuli) Pain Intensity: 0 Hydration: IV Infusing Complications During Recover: None Apparent - Follow-Up Instructions Instructions: Per Surgeon
--- NOTE | 2016-10-13 16:38 | XRay Report ---
Indication: post central line placement/RT IJ XR chest post-procedure 1V: Comparison: 09/10/2015 Technique: Single portable upright AP chest Findings: Patient shows a right central line in position. Its tip is in the distal superior vena cava. Patient continues to show an NG tube coiled in what appears to be a large hernia to the right of the midline numb. This has not changed over several days abdominal imaging. Heart size and left lung are unremarkable. Impression: 1. Since previous study a right-sided central line is in place with no indication of pneumothorax. 2. NG tube coiled in a hernia to the right of the midline unchanged since previous studies. 3. No additional acute cardiopulmonary findings. .
--- NOTE | 2016-10-13 16:53 | Progress Note ---
Subjective: Pt is S/P Exploratory laparotomy sedate in the ICU. She had lysis one one band. Objective Vital signs: Temperature 97.2 F 10/13/16 15:40 Pulse Rate 81 10/13/16 15:40 Respiratory Rate 14 10/13/16 15:40 Blood Pressure 121/58 10/13/16 15:40 Pulse Oximetry 95 10/13/16 15:40 Oxygen Delivery Method Nasal Cannula Oxygen Flow Rate 3 Rhythm: Normal Sinus Rhythm Weight: 49.7 kg - Constitutional Present: obtunded - Routine HEENT Exam Head: Present: normocephalic Eye: Present: PERRL - Routine Respiratory Exam Present: CTA bilaterally - Routine Cardiovascular Exam Present: RRR - Routine Abdominal Exam Comments: Not examined - Routine Extremities Exam Absent: cyanosis, clubbing, edema - Routine Neurological Exam sedated - Routine Psychiatric Exam Present: unable to assess Results - Labs CBC & Chem 7: 10/13/16 04:46 10/13/16 04:46 - ABG Interpretation ABG results: 10/12/16 16:49 ABG pH 7.400 ABG pCO2 41 ABG pO2 54 L ABG HCO3 25 ABG Total CO2 26.7 ABG O2 Saturation 88.0 L ABG Base Excess 0.5 Assessment and Plan (1) Small bowel obstruction Current visit: Yes Status: Acute 10/11/16 00:19 Likely due to abdominal adhesions. Patient declines pain medications at this time. Will order fentanyl 25mg Q2H PRN with zofran 4mg Q4h PRN. Patient NPO at this time, do not feel that she needs NGT decompression at this time. Continue supportive care. Gen surg consult in the AM. Assessment and Plan: DIAGNOSIS 1) SBO in a pt that has H.O SBO and multiple adhesions. - S/P Exploratory laparotomy + lysis of adhesions with normal VSS in the ICU. 2) DHT - High BUN/Cr ratio - high Na, high fluid loss from NGT. 3) Episode of desaturation - add Incentive spirometry and Duonebs once she is more awake. 4) HTN - Will place a Clonidine patch TTS-1 PREVENTION - SCD & PPI Sepsis Assessment - Evaluation Sepsis screening result: No Definite Risk Hospital Course Summary Disclaimer: The visit summary below is not to be considered part of the above Progress Note. Hospital Course: 10/12/16 11:54 10/12/13 Continue with gut rest and NG tube inplace. Remains NPO. She continues to utilize Toradol for pain control. Morphine is available, however, patient has declined. Continue with Protonix IV daily for GI protection. Zofran and Reglan available as needed for nausea Cytosis has resolved, white count 7.1 today. However, bands are up to 12%. Noted hypernatremia, sodium 149. Will change IV fluids to 1/2 NS at 100 ml/hr Overall appears to be medically stable. Appreciate consultation by Dr. Gonzalez for surgical evaluation and recommendations. Check CBC and BMP tomorrow morning to follow blood counts, renal function and electrolytes. Catalino further orders and plan of care with attending, Dr. Nolasco
[2016-10-13] MEDS ORDERED: LR 500 ML IV SCH (23:30)
[2016-10-14] MEDS ORDERED: LR 500 ML IV SCH (02:58)
[2016-10-14] MEDS: ALBUTEROL 2.5mg/3ml (0.083%) NEB AEROSOL PRN (04:30)
[2016-10-14] MEDS: 1/2 NS 1,000 ML IV SCH ×2 (05:00→14:33)
--- NOTE | 2016-10-14 07:09 | Progress Note ---
DATE 10/13/2016 FINDINGS Abiola this morning remains to be without new complaints. She still has been without any element of flatus or BM. She continues to have pain mostly within the left side of her abdomen. VITALS: Afebrile. Normotensive. Last recorded vitals include temperature 97.8 , pulse 78, respirations 18, blood pressure 152/73, SaO2 92% on 2 liters per nasal cannula. HEENT: Normocephalic. Pupils are equal, round and reactive to light and accommodation. CHEST: Clear to auscultation bilaterally. HEART: Regular rate and rhythm. Normal S1 and S2 without gallops, murmurs or clicks. ABDOMEN: Palpation of the abdomen still reveals an element of tenderness within the left lower quadrant and left midabdomen. There is no evidence for involuntary guarding or rebound. LABORATORY/RADIOGRAPH EVALUATION The patient had a CBC today that was unremarkable. White count remains stable at 6.3. Hemoglobin is stable at 12.6. BMP obtained and found to be without marked abnormalities. Radiographically, she had a KUB and upright. Unfortunately, contrast remains to be persistent within the pelvic region with no contrast being present within the colon. She continues to have markedly dilated loops of distal small bowel with air-fluid levels in somewhat of a "stair-stepping appearance". Findings are consistent with that of a complete small bowel obstruction. ASSESSMENT 80-year-old female with probable complete small bowel obstruction. PLAN Given her ongoing abdominal pain, failure of the Gastrografin to progress into her colon, I would recommend that we proceed with surgical intervention. I was somewhat more conservative in nature and allowed more time than typical to see if the contrast would progress into her colon. From reviewing her prior operative notes it does appear that she has somewhat of a "hostile" abdomen with significant adhesions being present previously between mesh involving her anterior abdominal wall and underlying viscus. I do believe the patient is at operative risk given her age and prior surgical history revealing significant intraabdominal he adhesions. Nonetheless, I do believe the patient has a complete small bowel obstruction that is not going to resolve without surgical intervention. It was therefore my recommendation to the patient that we proceed with exploratory laparotomy with lysis of adhesions. I did discuss risk with the patient which included, but was not limited to, bleeding, infection, potential injury to underlying viscus as a result of significant adhesions, and even . The patient understood and wished to proceed. POLINA
--- NOTE | 2016-10-14 08:31 | Operative Note ---
DATE OF PROCEDURE 10/13/2016 SURGEON Vince Gonzalez MD C UNIX DEVELOPER Dalton Anthony MD PREOPERATIVE DIAGNOSIS Small bowel obstruction. POSTOPERATIVE DIAGNOSIS Small bowel obstruction secondary to adhesions. PROCEDURE PERFORMED Exploratory laparotomy with lysis of adhesions. ANESTHESIA General endotracheal. EBL AND FLUIDS Please see chart FINDINGS Upon laparotomy the patient was found to have a fair amount of adhesions between the anterior abdominal wall and the underlying viscus. Within the pelvis region there was an adhesive band resulting in a complete occlusion of the distal terminal ileum. There was an obvious transition zone present at the location of this adhesive band. Distal to the adhesive band the small bowel was collapsed in nature. Proximal to the adhesive band the small bowel was significantly dilated. Adhesive band was transected and the small bowel obstruction was alleviated. Small bowel contents were advanced back towards the stomach. Small bowel was run from the ligament of Treitz to the terminal ileum and was without palpable or visible abnormalities except as stated above in regard to the adhesive band. Colon was palpated without noted abnormalities. The upper abdomen was adhesed from adhesions and I was unable to visualize the liver or the stomach. DESCRIPTION OF PROCEDURE After informed consent was obtained, the patient was brought to the operative suite and placed on the table in supine fashion. The abdomen was then prepped and draped in a sterile fashion. Formal time-out was then completed. A standard midline incision was then made from just above the pubic symphysis up to and just above the level of umbilicus. Underlying subcutaneous tissues, fascia was then opened to the extent of the incision. Peritoneum was then entered. The majority of the incision was able to be opened with electrocautery. In the upper portion of the incision there was some bowel adherent to the peritoneum adjacent to the incision. Rickey clamps were placed upon the fascia and retracted laterally. Small bowel and small bowel omentum that was adhered adjacent to the peritoneum was able to be excised laterally. The epigastric/upper abdomen was unable to be visualized as a result of significant adhesions located above the transverse colon. I elected not to take down these adhesions. Attention was focused to the area of concern within the pelvis. The significantly dilated small bowel was able to be delivered out of the pelvis. One could then see an adhesive band occluding a portion of the terminal ileum. Adhesive band was transected with Metzenbaum scissors. Small bowel was now able to lifted out of the pelvis. Small bowel proximal to this adhesive band was significantly dilated. The distal small bowel beyond this adhesive band was collapsed in nature. There was no evidence for vascular compromise or necrosis of the bowel. Small bowel contents were then advanced back towards the ligament of Treitz. Massively dilated small bowel was now decompressed. Small bowel was without additional palpable or visible abnormalities. There was a portion of the terminal ileum that was somewhat located behind the cecum and along the right lateral abdominal wall. Additional adhesiolysis was then undertaken and the terminal ileum was completely freed beyond the adhesion to make sure that there were no additional adhesions that could result in an obstruction beyond the transition zone. Small bowel was carefully inspected at this point in time from the ligament of Treitz to the ileocecal valve region. The descending colon, transverse colon and ascending colon that was able to be visualized were without visible or palpable abnormalities. Attention was then directed towards closure. Small bowel contents returned back into the peritoneal cavity. Again, there was no evidence for vascular compromise. Instrument, sponge and needle counts were performed and found be correct. Attention was then directed towards closure. The fascia as well as a portion of mesh that was present upon entering the abdomen was closed in a running fashion with #1 Prolene. Additionally, it should also be noted that during the process of opening the abdomen there was some wire present within the fascia. This previously placed wire was transected and removed. Once the fascia been closed in its entirety, attention was then directed towards closure of the skin. Skin was then closed with noe. The patient is in the process of awakening from her anesthetic and will be sent back to recovery once deemed in stable condition. POLINA
--- NOTE | 2016-10-14 08:42 | Operative Note ---
DATE OF PROCEDURE 10/13/2016 SURGEON Vince Gonzalez MD PREOPERATIVE DIAGNOSIS Poor peripheral IV access, need for long-term central venous access to facilitate postoperative care/ hyperalimentation. POSTOPERATIVE DIAGNOSIS Poor peripheral IV access, need for long-term central venous access to facilitate postoperative care/ hyperalimentation. PROCEDURE Insertion of right internal jugular triple-lumen catheter under sonographic guidance. ANESTHESIA Local. DESCRIPTION OF PROCEDURE Initially Anesthesia had attempted to place a central line via a right IJ approach. Anesthesia was having some slight difficulty placing the central line and therefore I proceeded with placement of the line. The right lateral neck had already been prepped and draped in sterile fashion. A prior attempt was made at placing the central line. Ultrasonography was performed along the right lateral neck. One could see anatomic location of the internal jugular vein. A 22-gauge needle was introduced through the skin and directly into the internal jugular vein. Next a Cook needle was introduced in a similar fashion directly into the internal jugular vein. A venous flush was obtained. Guidewire was advanced with the Cook needle the Cook needle were removed. A small incision was then made adjacent to the guidewire. A dilator sheath was then advanced over the guidewire and removed. Flushed triple-lumen catheter was then advanced over the guidewire and the guidewire was then removed. All ports were then aspirated and flushed with heparinized saline without difficulty. Catheter was fixated to the right lateral neck with 2-0 silk that was included within the set. The patient tolerated this portion of the procedure without difficulty. [facility]
[2016-10-14] MEDS: PANTOPRAZOLE 40 MG INJECTION IVP SCH (09:10)
[2016-10-14] MEDS ORDERED: ALBUMIN HUMAN 12.5gm (25%) 50ml IV ONE (09:31)
--- NOTE | 2016-10-14 09:58 | General Surgery Progress Note ---
Subjective Patient reports: no flatus Narrative: POD #1 post exploratory laparotomy and lysis of adhesions. She is in the recliner, alert, oriented, greets me by name. States "if it is my time to go it is, if it is not, then it is not." States pain is "not bad" and rates and 1-3. Nursing reports she had 2 boluses of LR during the night, urine output has been minimal to none, 0-15ml/hr. SBP at rest in the 90's when up in the chair uppper 70's-80's. NG in place. She has refused morphine, but did get Toradol during the night. She is I&O positive about 1700 ml over the last 12 hrs , no edema or crackles. Discussed with Lisa, will give Albumin 12.5 and Bumes 1 mg IV. HGB down at 10.4 (12.6 yesterday) likely a combination of surgical loss and dilutional. - Vital Signs Last Vital Signs Temp 98.6 F 10/14/16 04:00 Pulse 74 10/14/16 06:00 Resp 16 10/14/16 06:00 BP 90/53 10/14/16 06:00 Pulse Ox 94 10/14/16 06:00 - Laboratory Result Diagrams: 10/14/16 04:20 10/14/16 04:20 - Abnormal Exam Abdominal: hypoactive bowel sounds Additional Abnormal Findings: urine medium yellow, 15 mlat 7 am, 0 at 8 and 9am, 36 at 10 am - Normal Exam General: alert, oriented, no acute distress Cardiovascular: regular rhythm, regular rate, other (no pedal edema) Respiratory: clear all de león (slightly dimished bases) Abdominal: incision(s) (midline abd dressing dry and intact) Assessment and Plan (1) Oliguria and anuria Current Visit: Yes Status: Acute (2) Small bowel obstruction Current Visit: Yes Status: Resolved (3) Hiatal hernia Current Visit: Yes Status: Chronic Problem details: Large intrathoracic/ right retrocardiac Plan: Discussed above findings with Lisa will order Albumin 12.5 IV, Bumex 1 mg IV. Agree with hospitalist bolus as well. Start TPN with pharmacy consult, BGM Q6 and SSI Hospital Course Summary Disclaimer: The visit summary below is not to be considered part of the above Progress Note. Hospital Course: 10/12/16 11:54 10/12/13 Continue with gut rest and NG tube inplace. Remains NPO. She continues to utilize Toradol for pain control. Morphine is available, however, patient has declined. Continue with Protonix IV daily for GI protection. Zofran and Reglan available as needed for nausea Cytosis has resolved, white count 7.1 today. However, bands are up to 12%. Noted hypernatremia, sodium 149. Will change IV fluids to 1/2 NS at 100 ml/hr Overall appears to be medically stable. Appreciate consultation by Dr. Gonzalez for surgical evaluation and recommendations. Check CBC and BMP tomorrow morning to follow blood counts, renal function and electrolytes. Catalino further orders and plan of care with attending, Dr. Nolasco Sepsis Assessment - Evaluation Sepsis screening result: No Definite Risk
--- NOTE | 2016-10-14 12:46 | Progress Note ---
Subjective: F/U: Small bowel obstruction Doing well this morning. Notes some incisional ab pain-pain increases with cough. No nausea. No flatus. Does feel hungry. Breathing well-not feeling SOA or congested. No pain with breathing. Strength decreased. Urine with decrease overnight-IV boluses given. BP running low. Objective Vital signs: Temperature 98.3 F 10/14/16 12:27 Pulse Rate 66 10/14/16 11:45 Respiratory Rate 22 10/14/16 11:45 Blood Pressure 104/54 10/14/16 11:30 Pulse Oximetry 95 10/14/16 11:45 Oxygen Delivery Method Nasal Cannula Oxygen Flow Rate 2 Weight: 51.219 kg - Constitutional Present: well nourished, well developed, thin, cooperative - Routine HEENT Exam Head: Present: normocephalic, atraumatic Eye: Present: EOMI, PERRL ENT: Present: mucous membranes dry - Routine Respiratory Exam Present: decreased breath sounds. Absent: respiratory distress, wheezes, crackles - Routine Cardiovascular Exam Present: RRR - Routine Abdominal Exam Present: soft, non distended, non tender, wound (Covered and dry) - Routine Extremities Exam Present: no edema. Absent: cyanosis, clubbing - Routine Musculoskeletal Exam Musculoskeletal: Present: no clubbing or cyanosis, normal strength - Routine Skin Exam Present: warm. Absent: cyanosis, erythema - Routine Neurological Exam Present: alert, oriented X3, CN II-XII intact, vision grossly intact, hearing grossly intact. Absent: motor deficit - Routine Psychiatric Exam Present: normal affect, normal thought process, cooperative Results - Labs CBC & Chem 7: 10/14/16 04:20 10/14/16 04:20 - ABG Interpretation ABG results: 10/12/16 16:49 ABG pH 7.400 ABG pCO2 41 ABG pO2 54 L ABG HCO3 25 ABG Total CO2 26.7 ABG O2 Saturation 88.0 L ABG Base Excess 0.5 Assessment and Plan (1) Small bowel obstruction Current visit: Yes Status: Resolved (2) Oliguria and anuria Current visit: Yes Status: Acute (3) COPD (chronic obstructive pulmonary disease) Current visit: Yes Status: Chronic DVT Prophylaxis: SCD's GI Prophylaxis: Protonix Resuscitation Status: Full Code Assessment and Plan: DIAGNOSIS 1) SBO in a pt that has H.O SBO and multiple adhesions. - S/P Exploratory laparotomy + lysis of adhesions with normal VSS in the ICU. 2) DHT - High BUN/Cr ratio - high Na, high fluid loss from NGT. 3) Episode of desaturation - add Incentive spirometry and Duonebs once she is more awake. 4) HTN - Will place a Clonidine patch TTS-1 PREVENTION - SCD & PPI IVF boluses given overnight due to decreased urine output. Albumen and IV Bumex ordered by Dr Gonzalez. Will d/c Catapres patch as BP low. Continue NG for bowel decompression - monitor output. Wean O2 as able - encourage IS. TPN started for nutritional support until diet able to be advanced. Will continue CCU monitoring due to low urine output - hope to transfer to surgical floor in near future. Case discussed with nursing, Dr Gonzalez, and family. Time spent with patient care 25 minutes. - Time spent with patient 25 - 35 minutes Sepsis Assessment - Evaluation Sepsis screening result: No Definite Risk Hospital Course Summary Disclaimer: The visit summary below is not to be considered part of the above Progress Note. Hospital Course: 10/11/16 Admission Small bowel obstruction, likely due to abdominal adhesions. Patient declines pain medications at this time. Will order fentanyl 25mg Q2H PRN with zofran 4mg Q4h PRN. Patient NPO at this time, do not feel that she needs NGT decompression at this time. Continue supportive care. Gen surg consult in the AM. 10/12/16 Continue with gut rest and NG tube inplace. Remains NPO. She continues to utilize Toradol for pain control. Morphine is available, however, patient has declined. Continue with Protonix IV daily for GI protection. Zofran and Reglan available as needed for nausea Cytosis has resolved, white count 7.1 today. However, bands are up to 12%. Noted hypernatremia, sodium 149. Will change IV fluids to 1/2 NS at 100 ml/hr Overall appears to be medically stable. Appreciate consultation by Dr. Gonzalez for surgical evaluation and recommendations. Check CBC and BMP tomorrow morning to follow blood counts, renal function and electrolytes. 10/13/16 OP DAY PREOPERATIVE DIAGNOSIS Small bowel obstruction. POSTOPERATIVE DIAGNOSIS Small bowel obstruction secondary to adhesions. PROCEDURE PERFORMED Exploratory laparotomy with lysis of adhesions. 10/14/16 POD#1 IVF boluses given overnight due to decreased urine output. Creatinine stable. Albumen and IV Bumex ordered by Dr Gonzalez. Will d/c Catapres patch as BP low. Continue NG for bowel decompression - monitor output. Wean O2 as able - encourage IS. TPN started for nutritional support until diet able to be advanced. Will continue CCU monitoring due to low urine output - hope to transfer to surgical floor in near future.
[2016-10-14] MEDS ORDERED: MULTI-VIT INFUSION 10 ML, MULTI-TRACE ELEMENTS 1 ML in TPN - STANDARD FORMULA 2,000 ML IV SCH (14:00)
--- NOTE | 2016-10-14 14:59 | Progress Note ---
DATE: 10/14/2016 FINDINGS Abiola, this morning, surprisingly looked quite well. She denied significant abdominal pain. She has been refusing pain medication. EXAM VITALS: Afebrile. Normotensive. The patient has been oliguric in nature. Please refer to EMR. CHEST: Clear to auscultation bilaterally. HEART: Regular rate and rhythm. Normal S1 and S2 without gallops, murmurs or clicks. ABDOMEN: Palpation of the abdomen reveals some minimal incisional tenderness. No evidence for guarding or rebound. LABORATORY/RADIOGRAPHIC EVALUATION The patient's white count was 8.7. Hemoglobin has drifted down slightly to 10.4. CMP obtained today and found to be without marked abnormalities. BUN remains elevated at 37.0. Creatinine is stable at 0.8. Albumin is low at 2.3. ASSESSMENT 81-year-old female status post exploratory laparotomy with lysis of adhesions secondary to small bowel obstruction. Overall patient doing fairly well. PLAN At the time of surgery she did have several liters of fluid within her peritoneal cavity as a result of her small bowel obstruction. I do believe that she had third spaced a fair amount and is likely hypovolemic resulting in her hypotension and oliguria. The patient has received a fair amount of crystalloid boluses last evening as well as today. Will go ahead give the patient some colloid/albumin. Given the fact that she has had very little urine output, will go ahead and give a small dose of Bumex and continue with ongoing fluids. Although on paper she is "volume up" according to her I&O, I still believe she is hypovolemic. Will also begin hyperalimentation given the fact that she has been without p.o. intake now for several days. Otherwise will continue with current care. [place]
[2016-10-14] MEDS: FAT EMULSION 20% 100 ML IV SCH (15:09)
[2016-10-14] MEDS ORDERED: FAT EMULSION 20% 100 ML BAG IV SCH (16:00)
[2016-10-14] MEDS: KETOROLAC 15 MG/ML INJECTION IVP PRN (16:44)
[2016-10-14] MEDS: INSULIN REGULAR, HUMAN 100 UNIT/ML INJECTION SQ PRN (18:28)
[2016-10-15] MEDS: 1/2 NS 1,000 ML IV SCH (01:22)
[2016-10-15] MEDS: INSULIN REGULAR, HUMAN 100 UNIT/ML INJECTION SQ PRN ×2 (05:55→13:02)
[2016-10-15] MEDS: PANTOPRAZOLE 40 MG INJECTION IVP SCH (08:06)
[2016-10-15] MEDS: SALINE FLUSH 10ml SYRINGE IVF PRN ×4 (08:07→22:49)
--- NOTE | 2016-10-15 10:05 | General Surgery Progress Note ---
Subjective Patient reports: feels better, no bowel movement, afebrile Narrative: she is alert and oriented, ready to go for a walk. Urine output has increased to usually > 100 ml/hr. She is not requiring any narcotic pain medication. Still on 2Lt oxygen. BP has improved since yesterday. - Vital Signs Last Vital Signs Temp 96.8 F 10/15/16 07:54 Pulse 64 10/15/16 06:00 Resp 18 10/15/16 06:00 BP 99/54 10/15/16 06:00 Pulse Ox 93 10/15/16 06:00 - Laboratory Result Diagrams: 10/15/16 08:05 10/15/16 04:28 - Abnormal Exam Abdominal: hypoactive bowel sounds (rare gurglins sounds) - Normal Exam General: no acute distress Cardiovascular: regular rhythm, regular rate Respiratory: clear bilaterally Abdominal: soft, appropriately tender, incision(s) (dressing in tact midline) Psychiatric: normal affect Assessment and Plan (1) Oliguria and anuria Current Visit: Yes Status: Resolved (2) Small bowel obstruction Current Visit: Yes Status: Resolved (3) Hiatal hernia Current Visit: Yes Status: Chronic Problem details: Large intrathoracic/ right retrocardiac Plan: doing surprisingly well post op day #2, lysis of adhesions. will increase TPN to 60ml/y and decrease IVF to 80/hr. urine output has improved, consider DC Phan at hospitalist discretion. appears stable to transfer to floor from surgical standpoint Hospital Course Summary Disclaimer: The visit summary below is not to be considered part of the above Progress Note. Hospital Course: 10/11/16 Admission Small bowel obstruction, likely due to abdominal adhesions. Patient declines pain medications at this time. Will order fentanyl 25mg Q2H PRN with zofran 4mg Q4h PRN. Patient NPO at this time, do not feel that she needs NGT decompression at this time. Continue supportive care. Gen surg consult in the AM. 10/12/16 Continue with gut rest and NG tube inplace. Remains NPO. She continues to utilize Toradol for pain control. Morphine is available, however, patient has declined. Continue with Protonix IV daily for GI protection. Zofran and Reglan available as needed for nausea Cytosis has resolved, white count 7.1 today. However, bands are up to 12%. Noted hypernatremia, sodium 149. Will change IV fluids to 1/2 NS at 100 ml/hr Overall appears to be medically stable. Appreciate consultation by Dr. Gonzalez for surgical evaluation and recommendations. Check CBC and BMP tomorrow morning to follow blood counts, renal function and electrolytes. 10/13/16 OP DAY PREOPERATIVE DIAGNOSIS Small bowel obstruction. POSTOPERATIVE DIAGNOSIS Small bowel obstruction secondary to adhesions. PROCEDURE PERFORMED Exploratory laparotomy with lysis of adhesions. 10/14/16 POD#1 IVF boluses given overnight due to decreased urine output. Creatinine stable. Albumen and IV Bumex ordered by Dr Gonzalez. Will d/c Catapres patch as BP low. Continue NG for bowel decompression - monitor output. Wean O2 as able - encourage IS. TPN started for nutritional support until diet able to be advanced. Will continue CCU monitoring due to low urine output - hope to transfer to surgical floor in near future. Sepsis Assessment - Evaluation Sepsis screening result: No Definite Risk
[2016-10-15] MEDS: KETOROLAC 15 MG/ML INJECTION IVP PRN ×2 (10:30→22:44)
[2016-10-15] MEDS ORDERED: 1/2 NS 1,000 ML IV SCH (11:07)
--- NOTE | 2016-10-15 11:10 | Pharmacy Consult-TPN/PPN ---
Pharmacy Consult-TPN/PPN - Laboratory Information Chemistry Turbidity < 20 (0-20) 10/15/16 04:28 Sodium 139 MEQ/L (134-144) 10/15/16 04:28 Potassium 3.2 MEQ/L (3.6-5) L D 10/15/16 04:28 Chloride 106 MEQ/L (98-107) 10/15/16 04:28 Carbon Dioxide 29 MEQ/L (22-30) D 10/15/16 04:28 Anion Gap 4 MEQ/L (5-15) L 10/15/16 04:28 BUN 27.0 MG/DL (7-17) H 10/15/16 04:28 Creatinine 0.8 MG/DL (0.7-1.2) 10/15/16 04:28 GFR Calculation 69 10/15/16 04:28 BUN/Creatinine Ratio 34 RATIO (6-26) H 10/15/16 04:28 Glucose 157 MG/DL (65-110) H 10/15/16 04:28 Calculated Osmolality 276 MOSM/KG (261-280) 10/15/16 04:28 Calcium 8.1 MG/DL (8.4-10.2) L 10/15/16 04:28 Phosphorus 3.9 MG/DL (2.5-4.5) 10/14/16 04:20 Magnesium 1.5 MG/DL (1.6-2.3) L 10/14/16 04:20 Total Bilirubin 0.70 MG/DL (0.20-1.30) 10/14/16 04:20 Icterus Index < 2 (0-7) 10/15/16 04:28 AST 36 U/L (14-36) 10/14/16 04:20 ALT 41 U/L (9-52) 10/14/16 04:20 Alkaline Phosphatase 54 U/L (38-126) 10/14/16 04:20 Total Protein 4.1 G/DL (6.3-8.2) L 10/14/16 04:20 Albumin 2.3 G/DL (3.5-5.0) L 10/14/16 04:20 Globulin 1.8 G/DL (2.4-3.6) L 10/14/16 04:20 Albumin/Globulin Ratio 1.3 RATIO (1.1-2.2) 10/14/16 04:20 Lipase 103 U/L (23-300) 10/10/16 18:59 Specimen Hemolysis < 15 (0-25) 10/15/16 04:28 Intake and Output 10/14/16 10/15/16 10/16/16 06:59 06:59 06:59 Intake Total 4760.000 / 4760.000 3560.666 / 3560.666 560 / 560 Output Total 591 / 591 2234 / 2234 590 / 590 Balance 4169.000 / 4169.000 1326.666 / 1326.666 -30 / -30 Weight 49.7 kg 51.219 kg 51.4 kg Intake: IV 4700.000 / 4700.000 3560.666 / 3560.666 560 / 560 1/2 Normal Saline 1,000 3100.000 / 3100.000 2363.333 / 2363.333 400 / 400 ml @ 80 mls/hr IV . [id number] [facility] Rx#:[id number] INVanz 1 G In Normal 100 / 100 Saline 100 ml @ 200 mls/ hr IV [employer] Rx#: [id number] Intralipid 20% 100 ml @ 100.0 / 100.0 50 mls/hr IV 1600 [facility] Rx# :[id number] Lactated Ringers 500 ml @ 1500.000 / 4474.094 6762 mls/hr IV .Q30M [facility] Rx#:[id number] Infuvite Adult 10 ml 597.333 / 597.333 160 / 160 Multi-Trace Elements 1 ml In TPN - Standard Formula 2,000 ml @ 60 mls /hr IV .Q24H [facility] Rx#: [id number] Normal Saline 500 ml @ 500 / 500 999.9 mls/hr IV .Q30M [facility] Rx#:[id number] Oral 60 / 60 Output: Urine 100 / 100 455 / 455 0 / 0 Urine Amount (Catheter) 241 / 241 1654 / 1654 590 / 590 Gastric Drainage 250 / 250 125 / 125 Right Nare 250 / 250 125 / 125 Other: # Voids 1 - Consult Information Ms Chávez tolerated her TPN well on day one, increased rate to goal today. Added potassium chloride 40 mEq to today's formula. Thank you.
--- NOTE | 2016-10-15 11:12 | Progress Note ---
Subjective: F/U: Small bowel obstruction Doing okay this am. Ab feels slightly more full this am. Pain controlled overall. Pain to ab increases with cough. Minimal nausea. Not passing flatus. Did ambulate with nursing this am-had slight dizziness with positional change. Mouth feels dry-using ice chips as needed. NG output 125cc yesterday. Not feeling chest SOA-some congestion (feels neb treatment would help). No f/c. Urine output increased. Objective Vital signs: Temperature 98.5 F 10/15/16 10:59 Pulse Rate 64 10/15/16 06:00 Respiratory Rate 18 10/15/16 06:00 Blood Pressure 99/54 10/15/16 06:00 Pulse Oximetry 93 10/15/16 06:00 Oxygen Delivery Method Nasal Cannula Oxygen Flow Rate 2 Weight: 51.4 kg - Constitutional Present: well nourished, well developed, cooperative - Routine HEENT Exam Head: Present: normocephalic, atraumatic Eye: Present: EOMI, PERRL ENT: Present: mucous membranes dry - Routine Respiratory Exam Present: decreased breath sounds. Absent: respiratory distress, wheezes, crackles - Routine Cardiovascular Exam Present: RRR - Routine Abdominal Exam Present: soft, tenderness (Mild, diffuse). Absent: normoactive bowel sounds ( Decreased ), rigid - Routine Exam Comments: Phan present - Routine Extremities Exam Absent: cyanosis, clubbing, no edema - Routine Musculoskeletal Exam Musculoskeletal: Present: no clubbing or cyanosis, normal strength - Routine Neurological Exam Present: alert, oriented X3, CN II-XII intact, vision grossly intact, hearing grossly intact. Absent: motor deficit - Routine Psychiatric Exam Present: normal affect, normal thought process, cooperative Results - Labs CBC & Chem 7: 10/15/16 08:05 10/15/16 04:28 - ABG Interpretation ABG results: 10/12/16 16:49 ABG pH 7.400 ABG pCO2 41 ABG pO2 54 L ABG HCO3 25 ABG Total CO2 26.7 ABG O2 Saturation 88.0 L ABG Base Excess 0.5 Assessment and Plan (1) Small bowel obstruction Current visit: Yes Status: Resolved (2) Oliguria and anuria Current visit: Yes Status: Resolved (3) COPD (chronic obstructive pulmonary disease) Current visit: Yes Status: Chronic DVT Prophylaxis: SCD's GI Prophylaxis: Protonix Resuscitation Status: Full Code Assessment and Plan: DIAGNOSIS 1) SBO in a pt that has H.O SBO and multiple adhesions. - S/P Exploratory laparotomy + lysis of adhesions POD #2. TPN increase to 60cc/hr by Sx to help nutrition. Will decrease 1/2NS to 40 cc/hr (total rate 100). Working to decrease overall volume status. Weight up since admit. Bladder retraining. Still need to accurately monitor urine output. Increase activities - nursing to ambulate QID; will consult PT/OT secondary to her gen debility post op. Routine Duoneb and Acapella for pulm toilet. Continue IS. Can wean O2 as able. Continue NG for bowel decompression - monitor output. No flatus, but NG output decreasing. BP still on low side-Catapres stopped yesterday. Monitor BP. As medical condition improving, will transfer to surgical floor for continuation of care. Case discussed with nursing, CM, and family. Time spent with patient care 25 minutes. - Time spent with patient 25 - 35 minutes Sepsis Assessment - Evaluation Sepsis screening result: No Definite Risk Hospital Course Summary Disclaimer: The visit summary below is not to be considered part of the above Progress Note. Hospital Course: 10/11/16 Admission Small bowel obstruction, likely due to abdominal adhesions. Patient declines pain medications at this time. Will order fentanyl 25mg Q2H PRN with zofran 4mg Q4h PRN. Patient NPO at this time, do not feel that she needs NGT decompression at this time. Continue supportive care. Gen surg consult in the AM. 10/12/16 Continue with gut rest and NG tube inplace. Remains NPO. She continues to utilize Toradol for pain control. Morphine is available, however, patient has declined. Continue with Protonix IV daily for GI protection. Zofran and Reglan available as needed for nausea Cytosis has resolved, white count 7.1 today. However, bands are up to 12%. Noted hypernatremia, sodium 149. Will change IV fluids to 1/2 NS at 100 ml/hr Overall appears to be medically stable. Appreciate consultation by Dr. Gonzalez for surgical evaluation and recommendations. Check CBC and BMP tomorrow morning to follow blood counts, renal function and electrolytes. 10/13/16 OP DAY PREOPERATIVE DIAGNOSIS Small bowel obstruction. POSTOPERATIVE DIAGNOSIS Small bowel obstruction secondary to adhesions. PROCEDURE PERFORMED Exploratory laparotomy with lysis of adhesions. 10/14/16 POD#1 IVF boluses given overnight due to decreased urine output. Creatinine stable. Albumen and IV Bumex ordered by Dr Gonzalez. Will d/c Catapres patch as BP low. Continue NG for bowel decompression - monitor output. Wean O2 as able - encourage IS. TPN started for nutritional support until diet able to be advanced. Will continue CCU monitoring due to low urine output - hope to transfer to surgical floor in near future. 10/15/16 POD#2 TPN increased to 60cc/hr by Sx to help nutrition. Will decrease 1/2NS to 40 cc/hr (total rate 100). Working to decrease overall volume status. Weight up since admit. Bladder retraining. Still need to accurately monitor urine output. Increase activities - nursing to ambulate QID; will consult PT/OT secondary to her gen debility post op. Routine Duoneb and Acapella for pulm toilet. Continue IS. Can wean O2 as able. Continue NG for bowel decompression - monitor output. No flatus, but NG output decreasing. BP still on low side-Catapres stopped yesterday. Monitor BP. As medical condition improving, will transfer to surgical floor for continuation of care.
[2016-10-15] MEDS ORDERED: MULTI-VIT INFUSION 10 ML, MULTI-TRACE ELEMENTS 1 ML, POTASSIUM CHLORIDE INJ 40 MEQ in ... IV SCH (14:00)
--- NOTE | 2016-10-15 15:38 | Progress Note ---
DATE 10/15/2016 FINDINGS Mrs. Chávez this morning was without complaints. She states that she is frustrated that she is "not better yet". She denies increasing pain. EXAM VITALS: Afebrile. Normotensive. Please refer to EMR. The patient's urinary output has markedly improved. CHEST: Clear to auscultation bilaterally. HEART: Regular rate and rhythm. Normal S1, S2, without gallops, murmurs or clicks. ABDOMEN: Palpation of the abdomen reveals it to be soft with only minimal incisional tenderness being present. Dressing is intact and is clean and dry. Dressing was not removed today. LABORATORY/RADIOGRAPHIC EVALUATION The patient had a CBC today. White count is 8.4. Hemoglobin is overall stable at 9.4. BMP obtained and patient was found to have a slight component of hypokalemia with potassium of 3.2. ASSESSMENT 81-year-old female status post exploratory laparotomy with lysis of adhesions secondary to small bowel obstruction. Patient doing well. PLAN Continue with hyperalimentation. Continue to monitor closely. Hopefully within the next couple of days the patient's GI activity will return and we will be able to DC her NG and begin her on some liquids. I am pleased with the patient's progress at this time. I informed the patient that overall she is doing quite well and I would not expect for her to "be ready for discharge" at this time. POLINA
[2016-10-15] MEDS: FAT EMULSION 20% 100 ML IV SCH (16:47)
[2016-10-15] MEDS: ONDANSETRON 4 MG/2 ML INJECTION IVP PRN (19:54)
[2016-10-15] MEDS: MULTI-VIT INFUSION 10 ML, MULTI-TRACE ELEMENTS 1 ML, POTASSIUM CHLORIDE INJ 40 MEQ in ... IV SCH (20:10)
[2016-10-15] MEDS: METOCLOPRAMIDE 10mg/2ml INJECTION IVP PRN (22:47)
[2016-10-16] MEDS: POTASSIUM CHLORIDE PREMIX 10 MEQ/100 ML BAG IV SCH ×4 (06:10→10:20)
[2016-10-16] MEDS: INSULIN REGULAR, HUMAN 100 UNIT/ML INJECTION SQ PRN ×2 (07:27→18:32)
[2016-10-16] MEDS: METOCLOPRAMIDE 10mg/2ml INJECTION IVP PRN (07:52)
[2016-10-16] MEDS: KETOROLAC 15 MG/ML INJECTION IVP PRN ×2 (07:52→16:38)
--- NOTE | 2016-10-16 07:58 | General Surgery Progress Note ---
Subjective Patient reports: no flatus, no bowel movement (some nausea, states she can "taste" one of the meds, not sure which one. NG still in place. ) Narrative: She is off oxygen. Ambulates with assist. - Vital Signs Last Vital Signs Temp 97.6 F 10/16/16 07:28 Pulse 86 10/16/16 07:28 Resp 18 10/16/16 07:28 BP 150/83 H 10/16/16 07:28 Pulse Ox 90 10/16/16 07:28 - Laboratory Result Diagrams: 10/16/16 04:13 10/16/16 04:13 - Abnormal Exam Abdominal: hypoactive bowel sounds (gurgling) - Normal Exam General: no acute distress Cardiovascular: regular rhythm, regular rate Respiratory: clear bilaterally Abdominal: appropriately tender Psychiatric: normal affect Assessment and Plan (1) Oliguria and anuria Current Visit: Yes Status: Resolved (2) Small bowel obstruction Current Visit: Yes Status: Resolved (3) Hiatal hernia Current Visit: Yes Status: Chronic Problem details: Large intrathoracic/ right retrocardiac Plan: K+ noted to be 2.9, K+ supplement already ordered. Will gently encourage bowels with Dulcolax tab Continue TPN for now. Hospital Course Summary Disclaimer: The visit summary below is not to be considered part of the above Progress Note. Hospital Course: 10/11/16 Admission Small bowel obstruction, likely due to abdominal adhesions. Patient declines pain medications at this time. Will order fentanyl 25mg Q2H PRN with zofran 4mg Q4h PRN. Patient NPO at this time, do not feel that she needs NGT decompression at this time. Continue supportive care. Gen surg consult in the AM. 10/12/16 Continue with gut rest and NG tube inplace. Remains NPO. She continues to utilize Toradol for pain control. Morphine is available, however, patient has declined. Continue with Protonix IV daily for GI protection. Zofran and Reglan available as needed for nausea Cytosis has resolved, white count 7.1 today. However, bands are up to 12%. Noted hypernatremia, sodium 149. Will change IV fluids to 1/2 NS at 100 ml/hr Overall appears to be medically stable. Appreciate consultation by Dr. Gonzalez for surgical evaluation and recommendations. Check CBC and BMP tomorrow morning to follow blood counts, renal function and electrolytes. 10/13/16 OP DAY PREOPERATIVE DIAGNOSIS Small bowel obstruction. POSTOPERATIVE DIAGNOSIS Small bowel obstruction secondary to adhesions. PROCEDURE PERFORMED Exploratory laparotomy with lysis of adhesions. 10/14/16 POD#1 IVF boluses given overnight due to decreased urine output. Creatinine stable. Albumen and IV Bumex ordered by Dr Gonzalez. Will d/c Catapres patch as BP low. Continue NG for bowel decompression - monitor output. Wean O2 as able - encourage IS. TPN started for nutritional support until diet able to be advanced. Will continue CCU monitoring due to low urine output - hope to transfer to surgical floor in near future. 10/15/16 POD#2 TPN increased to 60cc/hr by Sx to help nutrition. Will decrease 1/2NS to 40 cc/hr (total rate 100). Working to decrease overall volume status. Weight up since admit. Bladder retraining. Still need to accurately monitor urine output. Increase activities - nursing to ambulate QID; will consult PT/OT secondary to her gen debility post op. Routine Duoneb and Acapella for pulm toilet. Continue IS. Can wean O2 as able. Continue NG for bowel decompression - monitor output. No flatus, but NG output decreasing. BP still on low side-Catapres stopped yesterday. Monitor BP. As medical condition improving, will transfer to surgical floor for continuation of care. Sepsis Assessment - Evaluation Sepsis screening result: No Definite Risk
[2016-10-16] MEDS ORDERED: MULTI-VIT INFUSION 10 ML, MULTI-TRACE ELEMENTS 1 ML, POTASSIUM CHLORIDE INJ 40 MEQ in ... IV SCH (08:00)
[2016-10-16] MEDS ORDERED: Bisacodyl EC TAB 5 MG TABLET PO ONE (08:01)
[2016-10-16] MEDS: SALINE FLUSH 10ml SYRINGE IVF PRN ×4 (08:07→16:55)
--- NOTE | 2016-10-16 09:26 | Pharmacy Consult-TPN/PPN ---
Pharmacy Consult-TPN/PPN - Laboratory Information Chemistry Turbidity < 20 (0-20) 10/16/16 04:13 Sodium 144 MEQ/L (134-144) 10/16/16 04:13 Potassium 2.9 MEQ/L (3.6-5) L* 10/16/16 04:13 Chloride 106 MEQ/L (98-107) 10/16/16 04:13 Carbon Dioxide 31 MEQ/L (22-30) H 10/16/16 04:13 Anion Gap 7 MEQ/L (5-15) 10/16/16 04:13 BUN 17.0 MG/DL (7-17) 10/16/16 04:13 Creatinine 0.6 MG/DL (0.7-1.2) L D 10/16/16 04:13 GFR Calculation 95 10/16/16 04:13 BUN/Creatinine Ratio 28 RATIO (6-26) H 10/16/16 04:13 Glucose 152 MG/DL (65-110) H 10/16/16 04:13 Calculated Osmolality 282 MOSM/KG (261-280) H 10/16/16 04:13 Calcium 8.0 MG/DL (8.4-10.2) L 10/16/16 04:13 Phosphorus 3.9 MG/DL (2.5-4.5) 10/14/16 04:20 Magnesium 1.5 MG/DL (1.6-2.3) L 10/14/16 04:20 Total Bilirubin 0.70 MG/DL (0.20-1.30) 10/14/16 04:20 Icterus Index < 2 (0-7) 10/16/16 04:13 AST 36 U/L (14-36) 10/14/16 04:20 ALT 41 U/L (9-52) 10/14/16 04:20 Alkaline Phosphatase 54 U/L (38-126) 10/14/16 04:20 Total Protein 4.1 G/DL (6.3-8.2) L 10/14/16 04:20 Albumin 2.3 G/DL (3.5-5.0) L 10/14/16 04:20 Globulin 1.8 G/DL (2.4-3.6) L 10/14/16 04:20 Albumin/Globulin Ratio 1.3 RATIO (1.1-2.2) 10/14/16 04:20 Lipase 103 U/L (23-300) 10/10/16 18:59 Specimen Hemolysis < 15 (0-25) 10/16/16 04:13 Intake and Output 10/15/16 10/16/16 10/17/16 06:59 06:59 06:59 Intake Total 3560.666 / 3560.666 796.667 / 796.667 200 / 200 Output Total 2234 / 2234 2438 / 2438 1400 / 1400 Balance 1326.666 / 1326.666 -1641.333 / -1641.333 -1200 / -1200 Weight 51.219 kg 53.2 kg 52.8 kg Intake: IV 3560.666 / 3560.666 796.667 / 796.667 200 / 200 1/2 Normal Saline 1,000 2363.333 / 2363.333 536.667 / 536.667 ml @ 80 mls/hr IV . [id number] [facility] Rx#:[id number] Intralipid 20% 100 ml @ 100.0 / 100.0 100 / 100 50 mls/hr IV 1600 [facility] Rx# :[id number] Infuvite Adult 10 ml 597.333 / 597.333 160 / 160 Multi-Trace Elements 1 ml In TPN - Standard Formula 2,000 ml @ 60 mls /hr IV .Q24H [facility] Rx#: [id number] Normal Saline 500 ml @ 500 / 500 999.9 mls/hr IV .Q30M [facility] Rx#:[id number] POTASSIUM CHLORIDE PREMIX 200 / 200 10 meq In 100 ml @ 100 mls/hr IV Q1H [facility] Rx#: [id number] Output: Urine 455 / 455 400 / 400 Emesis 40 / 40 Urine Amount (Catheter) 1654 / 1654 1715 / 1715 1400 / 1400 Gastric Drainage 125 / 125 283 / 283 Right Nare 125 / 125 283 / 283 - Consult Information We will increase KCl in standard TPN to an additional 60mEq per bag. KCl 10mEq infusions x 4 was given this a.m. Continue to run at 60mL per hours. Thanks
[2016-10-16] MEDS: PANTOPRAZOLE 40 MG INJECTION IVP SCH (09:41)
[2016-10-16] MEDS: ALBUTEROL/IPRATROPIUM 2.5mg-0.5mg/3ml NEB AEROSOL SCH ×4 (10:24→20:11)
--- NOTE | 2016-10-16 13:09 | Progress Note ---
Subjective: F/U: Small bowel obstruction Doing well this morning. Worked well with therapy-eager to be mobile and going. Feels strength starting to improving. Breathing doing well-not SOA or congested. Breathing comfortable on room air. Notes very mild nausea. Not passing flatus. Minimal ab pain (some mild discomfort with positional changes but not feeling she is hurting badly). Blood pressure improved. Objective Vital signs: Temperature 97.8 F 10/16/16 11:49 Pulse Rate 89 10/16/16 11:49 Respiratory Rate 18 10/16/16 11:49 Blood Pressure 146/75 H 10/16/16 11:49 Pulse Oximetry 93 10/16/16 11:49 Oxygen Delivery Method Room Air Oxygen Flow Rate 2 Weight: 52.8 kg - Constitutional Present: well nourished, well developed, cooperative - Routine HEENT Exam Head: Present: normocephalic, atraumatic Eye: Present: EOMI, PERRL ENT: Present: mucous membranes dry - Routine Respiratory Exam Present: crackles (Left basilar ). Absent: accessory muscle use, respiratory distress, rhonchi, wheezes - Routine Cardiovascular Exam Present: RRR, no murmur - Routine Abdominal Exam Present: soft, non distended, non tender. Absent: normoactive bowel sounds ( Decreased ) - Routine Exam Comments: Phan present - Routine Extremities Exam Present: no edema. Absent: cyanosis, clubbing - Routine Musculoskeletal Exam Musculoskeletal: Present: no clubbing or cyanosis, normal strength - Routine Skin Exam Present: intact, warm, normal turgor - Routine Neurological Exam Present: alert, oriented X3, CN II-XII intact, vision grossly intact, hearing grossly intact. Absent: motor deficit - Routine Psychiatric Exam Present: normal affect, normal thought process, cooperative, good insight, good judgment Results - Labs CBC & Chem 7: 10/16/16 04:13 10/16/16 04:13 - ABG Interpretation ABG results: 10/12/16 16:49 ABG pH 7.400 ABG pCO2 41 ABG pO2 54 L ABG HCO3 25 ABG Total CO2 26.7 ABG O2 Saturation 88.0 L ABG Base Excess 0.5 Assessment and Plan (1) Small bowel obstruction Current visit: Yes Status: Resolved 10/11/16 00:19 Likely due to abdominal adhesions. Patient declines pain medications at this time. Will order fentanyl 25mg Q2H PRN with zofran 4mg Q4h PRN. Patient NPO at this time, do not feel that she needs NGT decompression at this time. Continue supportive care. Gen surg consult in the AM. (2) Oliguria and anuria Current visit: Yes Status: Resolved (3) COPD (chronic obstructive pulmonary disease) Current visit: Yes Status: Chronic DVT Prophylaxis: SCD's Resuscitation Status: Full Code Assessment and Plan: DIAGNOSIS 1) SBO in a pt that has H.O SBO and multiple adhesions. - S/P Exploratory laparotomy + lysis of adhesions POD #2. Potassium with decrease today to 2.9 - being replaced. Magnesium normal at 1.6. Continue TPN at 60cc/hr to help nutrition and maintain hydration. Will stop 1/2NS as BP improved. Weight still increased from admit, less fluid intake will help promote decrease weight. Will d/c Phan cath and strength improving. Encourage continued therapy and activities to help strength and functional status. Continue NG for bowel decompression - monitor output. No flatus. Case discussed with CM, and family. Time spent with patient care 25 minutes. Sepsis Assessment - Evaluation Sepsis screening result: No Definite Risk Hospital Course Summary Disclaimer: The visit summary below is not to be considered part of the above Progress Note. Hospital Course: 10/11/16 Admission Small bowel obstruction, likely due to abdominal adhesions. Patient declines pain medications at this time. Will order fentanyl 25mg Q2H PRN with zofran 4mg Q4h PRN. Patient NPO at this time, do not feel that she needs NGT decompression at this time. Continue supportive care. Gen surg consult in the AM. 10/12/16 Continue with gut rest and NG tube inplace. Remains NPO. She continues to utilize Toradol for pain control. Morphine is available, however, patient has declined. Continue with Protonix IV daily for GI protection. Zofran and Reglan available as needed for nausea Cytosis has resolved, white count 7.1 today. However, bands are up to 12%. Noted hypernatremia, sodium 149. Will change IV fluids to 1/2 NS at 100 ml/hr Overall appears to be medically stable. Appreciate consultation by Dr. Gonzlaez for surgical evaluation and recommendations. Check CBC and BMP tomorrow morning to follow blood counts, renal function and electrolytes. 10/13/16 OP DAY PREOPERATIVE DIAGNOSIS Small bowel obstruction. POSTOPERATIVE DIAGNOSIS Small bowel obstruction secondary to adhesions. PROCEDURE PERFORMED Exploratory laparotomy with lysis of adhesions. 10/14/16 POD#1 IVF boluses given overnight due to decreased urine output. Creatinine stable. Albumen and IV Bumex ordered by Dr Gonzalez. Will d/c Catapres patch as BP low. Continue NG for bowel decompression - monitor output. Wean O2 as able - encourage IS. TPN started for nutritional support until diet able to be advanced. Will continue CCU monitoring due to low urine output - hope to transfer to surgical floor in near future. 10/15/16 POD#2 TPN increased to 60cc/hr by Sx to help nutrition. Will decrease 1/2NS to 40 cc/hr (total rate 100). Working to decrease overall volume status. Weight up since admit. Bladder retraining. Still need to accurately monitor urine output. Increase activities - nursing to ambulate QID; will consult PT/OT secondary to her gen debility post op. Routine Duoneb and Acapella for pulm toilet. Continue IS. Can wean O2 as able. Continue NG for bowel decompression - monitor output. No flatus, but NG output decreasing. BP still on low side-Catapres stopped yesterday. Monitor BP. As medical condition improving, will transfer to surgical floor for continuation of care. 10/16/16 POD#3 Potassium with decrease today to 2.9 - being replaced. Magnesium normal at 1.6. Continue TPN at 60cc/hr to help nutrition and maintain hydration. Will stop 1/2NS as BP improved. Weight still increased from admit, less fluid intake will help promote decrease weight. Will d/c Phan cath and strength improving. Encourage continued therapy and activities to help strength and functional status. Continue NG for bowel decompression - monitor output. No flatus.
--- NOTE | 2016-10-16 13:34 | Progress Note ---
DATE 10/16/2016 FINDINGS Abiola this morning states that the potassium boluses are causing her some discomfort. Otherwise she is doing well. She has not had any flatus. EXAM VITALS: Afebrile. Normotensive. Please refer to EMR. ABDOMEN: Soft, essentially nontender. Dressings in place over her midline incision. LABORATORY/RADIOGRAPHIC EVALUATION The patient had a CBC today and her hemoglobin is stable at 10.6. White count is stable at 8.9. Potassium was low at 2.9 and is in the process of being replaced as stated above. Otherwise lab essentially within normal limits. ASSESSMENT 81-year-old female status post exploratory laparotomy with lysis of adhesions secondary to small bowel obstruction. Patient with hypokalemia today. Overall patient doing well. PLAN Continue with current care of hyperalimentation, potassium replacement, NG suction. Will continue to follow closely. Hopefully the patient will begin to have some flatus in the near future and NG will then be DC'd at that time and diet will be slowly advanced. Overall I am pleased with the patient's progress. MTDD
[2016-10-16] MEDS: MULTI VIT INFUSION IV SCH (15:14)
[2016-10-16] MEDS: MULTI TRACE ELEMENTS IV SCH (15:14)
[2016-10-16] MEDS: POTASSIUM CHLORIDE IV SCH (15:14)
[2016-10-16] MEDS: [UNRECOGNIZED DRUG - OTHER] IV SCH (15:14)
[2016-10-16] MEDS: MULTI-VIT INFUSION 10 ML, MULTI-TRACE ELEMENTS 1 ML, POTASSIUM CHLORIDE INJ 40 MEQ in ... IV SCH (15:45)
[2016-10-16] MEDS ORDERED: FUROSEMIDE 20 MG/2 ML INJECTION IVP ONE (16:32)
[2016-10-16] MEDS: FAT EMULSION 20% 100 ML IV SCH (16:39)
[2016-10-16] MEDS ORDERED: SENNA LIQUID (X-PREP) 74 ML PO ONE (16:42)
[2016-10-16] MEDS ORDERED: SENNA LIQUID (X-PREP) 74 ML NG ONE (17:09)
[2016-10-17] MEDS: INSULIN REGULAR, HUMAN 100 UNIT/ML INJECTION SQ PRN ×3 (01:00→15:12)
[2016-10-17] MEDS: ONDANSETRON 4 MG/2 ML INJECTION IVP PRN (04:17)
[2016-10-17] MEDS: ALBUTEROL/IPRATROPIUM 2.5mg-0.5mg/3ml NEB AEROSOL SCH ×3 (07:34→20:35)
[2016-10-17] MEDS ORDERED: SENNA LIQUID (X-PREP) 74 ML PO ONE (08:26)
--- NOTE | 2016-10-17 09:14 | Pharmacy Consult-TPN/PPN ---
Pharmacy Consult-TPN/PPN - Laboratory Information Chemistry Turbidity < 20 (0-20) 10/17/16 04:15 Sodium 144 MEQ/L (134-144) 10/17/16 04:15 Potassium 3.3 MEQ/L (3.6-5) L 10/17/16 04:15 Chloride 100 MEQ/L (98-107) 10/17/16 04:15 Carbon Dioxide 32 MEQ/L (22-30) H 10/17/16 04:15 Anion Gap 12 MEQ/L (5-15) 10/17/16 04:15 BUN 18.0 MG/DL (7-17) H 10/17/16 04:15 Creatinine 0.6 MG/DL (0.7-1.2) L 10/17/16 04:15 GFR Calculation 95 10/17/16 04:15 BUN/Creatinine Ratio 30 RATIO (6-26) H 10/17/16 04:15 Glucose 140 MG/DL (65-110) H 10/17/16 04:15 Calculated Osmolality 281 MOSM/KG (261-280) H 10/17/16 04:15 Calcium 8.7 MG/DL (8.4-10.2) D 10/17/16 04:15 Phosphorus 3.9 MG/DL (2.5-4.5) 10/14/16 04:20 Magnesium 1.6 MG/DL (1.6-2.3) 10/16/16 04:13 Total Bilirubin 0.90 MG/DL (0.20-1.30) 10/17/16 04:15 Icterus Index < 2 (0-7) 10/17/16 04:15 AST 25 U/L (14-36) 10/17/16 04:15 ALT 39 U/L (9-52) 10/17/16 04:15 Alkaline Phosphatase 82 U/L (38-126) D 10/17/16 04:15 Total Protein 5.8 G/DL (6.3-8.2) L 10/17/16 04:15 Albumin 3.3 G/DL (3.5-5.0) L 10/17/16 04:15 Globulin 2.5 G/DL (2.4-3.6) 10/17/16 04:15 Albumin/Globulin Ratio 1.3 RATIO (1.1-2.2) 10/17/16 04:15 Lipase 103 U/L (23-300) 10/10/16 18:59 Specimen Hemolysis < 15 (0-25) 10/17/16 04:15 Intake and Output 10/16/16 10/17/16 10/18/16 06:59 06:59 06:59 Intake Total 796.667 / 174.223 4858.667 / 2424.667 Output Total 2438 / 2438 4535 / 4535 Balance -1641.333 / -1641.333 -2110.333 / -2110.333 Weight 53.2 kg 52.8 kg 51.8 kg Intake: IV 796.667 / 119.830 4570.667 / 2424.667 1/2 Normal Saline 1,000 536.667 / 536.667 780.667 / 780.667 ml @ 40 mls/hr IV .Q24H [facility] Rx#:[id number] Intralipid 20% 100 ml @ 100 / 100 100 / 100 50 mls/hr IV 1600 [facility] Rx# :[id number] Infuvite Adult 10 ml 160 / 160 Multi-Trace Elements 1 ml In TPN - Standard Formula 2,000 ml @ 60 mls /hr IV .Q24H [facility] Rx#: [id number] Infuvite Adult 10 ml 1144 / 1144 Multi-Trace Elements 1 ml KCl 40 Meq In TPN - Standard Formula 2,000 ml @ 60 mls/hr IV .Q24H [facility] Rx#:[id number] POTASSIUM CHLORIDE PREMIX 400 / 400 10 meq In 100 ml @ 100 mls/hr IV Q1H [facility] Rx#: [id number] Output: Urine 400 / 400 Emesis 40 / 40 Urine Amount (Catheter) 1715 / 1715 4125 / 4125 Gastric Drainage 283 / 283 410 / 410 Right Nare 283 / 283 410 / 410 - Consult Information Will add a total of 80mEq of potassium chloride extra to standard TPN bag today. Will continue to monitor. Thank you.
[2016-10-17] MEDS: PANTOPRAZOLE 40 MG INJECTION IVP SCH (10:12)
--- NOTE | 2016-10-17 10:12 | General Surgery Progress Note ---
Subjective Patient reports: no new complaints (would like to shower), no flatus (per patient), bowel movement (states she had a very small BM yesterday) - Vital Signs Last Vital Signs Temp 98.1 F 10/17/16 08:00 Pulse 112 H 10/17/16 08:00 Resp 16 10/17/16 08:00 BP 156/99 H 10/17/16 08:00 Pulse Ox 92 10/17/16 08:00 - Laboratory Result Diagrams: 10/17/16 04:15 10/17/16 04:15 - Abnormal Exam Abdominal: hypoactive bowel sounds, distended (slightly) - Normal Exam Cardiovascular: regular rhythm, regular rate Abdominal: appropriately tender, incision(s) ([place] in tact, no erythema, ecchymosis) Assessment and Plan (1) Oliguria and anuria Current Visit: Yes Status: Resolved (2) Small bowel obstruction Current Visit: Yes Status: Resolved (3) Hiatal hernia Current Visit: Yes Status: Chronic Problem details: Large intrathoracic/ right retrocardiac Plan: No appreciable BM, discussed NG with Dr. Gonzalez and would keep NG till bowel shows some function. Will give Senna via NG. Once bowel shows activity, will DC NG. Continue TPN. Hypokalemia, hospitalist is addressing this. Will start PT/OT for strength, endurance, and eval for discharge. Hospital Course Summary Disclaimer: The visit summary below is not to be considered part of the above Progress Note. Hospital Course: 10/11/16 Admission Small bowel obstruction, likely due to abdominal adhesions. Patient declines pain medications at this time. Will order fentanyl 25mg Q2H PRN with zofran 4mg Q4h PRN. Patient NPO at this time, do not feel that she needs NGT decompression at this time. Continue supportive care. Gen surg consult in the AM. 10/12/16 Continue with gut rest and NG tube inplace. Remains NPO. She continues to utilize Toradol for pain control. Morphine is available, however, patient has declined. Continue with Protonix IV daily for GI protection. Zofran and Reglan available as needed for nausea Cytosis has resolved, white count 7.1 today. However, bands are up to 12%. Noted hypernatremia, sodium 149. Will change IV fluids to 1/2 NS at 100 ml/hr Overall appears to be medically stable. Appreciate consultation by Dr. Gonzalez for surgical evaluation and recommendations. Check CBC and BMP tomorrow morning to follow blood counts, renal function and electrolytes. 10/13/16 OP DAY PREOPERATIVE DIAGNOSIS Small bowel obstruction. POSTOPERATIVE DIAGNOSIS Small bowel obstruction secondary to adhesions. PROCEDURE PERFORMED Exploratory laparotomy with lysis of adhesions. 10/14/16 POD#1 IVF boluses given overnight due to decreased urine output. Creatinine stable. Albumen and IV Bumex ordered by Dr Gonzalez. Will d/c Catapres patch as BP low. Continue NG for bowel decompression - monitor output. Wean O2 as able - encourage IS. TPN started for nutritional support until diet able to be advanced. Will continue CCU monitoring due to low urine output - hope to transfer to surgical floor in near future. 10/15/16 POD#2 TPN increased to 60cc/hr by Sx to help nutrition. Will decrease 1/2NS to 40 cc/hr (total rate 100). Working to decrease overall volume status. Weight up since admit. Bladder retraining. Still need to accurately monitor urine output. Increase activities - nursing to ambulate QID; will consult PT/OT secondary to her gen debility post op. Routine Duoneb and Acapella for pulm toilet. Continue IS. Can wean O2 as able. Continue NG for bowel decompression - monitor output. No flatus, but NG output decreasing. BP still on low side-Catapres stopped yesterday. Monitor BP. As medical condition improving, will transfer to surgical floor for continuation of care. 10/16/16 POD#3 Potassium with decrease today to 2.9 - being replaced. Magnesium normal at 1.6. Continue TPN at 60cc/hr to help nutrition and maintain hydration. Will stop 1/2NS as BP improved. Weight still increased from admit, less fluid intake will help promote decrease weight. Will d/c Phan cath and strength improving. Encourage continued therapy and activities to help strength and functional status. Continue NG for bowel decompression - monitor output. No flatus. Sepsis Assessment - Evaluation Sepsis screening result: No Definite Risk
[2016-10-17] MEDS ORDERED: POTASSIUM CHLORIDE IV SCH (15:00)
[2016-10-17] MEDS ORDERED: MULTI VIT INFUSION IV SCH (15:00)
[2016-10-17] MEDS ORDERED: [UNRECOGNIZED DRUG - OTHER] IV SCH (15:00)
[2016-10-17] MEDS ORDERED: MULTI TRACE ELEMENTS IV SCH (15:00)
[2016-10-17] MEDS: POTASSIUM CHLORIDE IV SCH (15:13)
[2016-10-17] MEDS: MULTI VIT INFUSION IV SCH (15:13)
[2016-10-17] MEDS: [UNRECOGNIZED DRUG - OTHER] IV SCH (15:13)
[2016-10-17] MEDS: MULTI TRACE ELEMENTS IV SCH (15:13)
--- NOTE | 2016-10-17 16:10 | Progress Note ---
Subjective: Mrs. Chávez reports that she continues to improve slowly. She reports having a small bowel movement which was not documented by nursing but she's not had any flatus. She continues to have some nausea requiring medications this morning. She describes being slightly lightheaded and fatiguing easily when she ambulates. She denied dyspnea, chest pain, or palpitations. She has minimal incisional pain. Patient complains of dry mouth. Objective Vital signs: Temperature 98.9 F 10/17/16 12:00 Pulse Rate 98 10/17/16 12:00 Respiratory Rate 16 10/17/16 12:00 Blood Pressure 113/67 10/17/16 12:00 Pulse Oximetry 95 10/17/16 12:00 Oxygen Delivery Method Room Air EXAM General-NAD, alert, fluent speech; right IJ triple-lumen catheter, insertion site unremarkable HEENT-conjunctiva clear, sclera anicteric, conjugate gaze, dry oral membranes Lungs-respirations nonlabored, diminished airflow, breath sounds clear Cardiac-regular rhythm, S1-S2 Abd-soft, mildly distended, mild generalized tenderness, sparse bowel sounds present-NG clamp time of my assessment Ext-without edema, degenerative changes in the small joints of the hands Neuro-moving all extremities well Psych-calm, cooperative - Weight: 51.8 kg Results - Labs CBC & Chem 7: 10/17/16 04:15 10/17/16 14:05 Labs: BMP earlier this morning notable only for potassium of 3.3 and bicarbonate 32. Creatinine 0.6. Albumin 3.3, liver enzymes unremarkable. - ABG Interpretation ABG results: 10/12/16 16:49 ABG pH 7.400 ABG pCO2 41 ABG pO2 54 L ABG HCO3 25 ABG Total CO2 26.7 ABG O2 Saturation 88.0 L ABG Base Excess 0.5 Assessment and Plan (1) Small bowel obstruction Current visit: Yes Status: Resolved (2) Oliguria and anuria Current visit: Yes Status: Resolved (3) COPD (chronic obstructive pulmonary disease) Current visit: Yes Status: Chronic DVT Prophylaxis: SCD's GI Prophylaxis: Protonix Resuscitation Status: Full Code Assessment and Plan: SBO-S/P Exploratory laparotomy + lysis of adhesions POD #3 Postoperative ileus Hypokalemia COPD GERD/hiatal hernia DJD Postoperative anemia Continue potassium replacement, progressive improvement in potassium level demonstrated. Continue TPN for nutritional support, bowel stimulation regimen initiated per surgery. Potassium increased in TPN further today. Check KUBs in a.m.; continue NG decompression per surgery. Discontinue Phan; ice chips for oral comfort. Discussed with nursing. - Time spent with patient 25 - 35 minutes Sepsis Assessment - Evaluation Sepsis screening result: No Definite Risk Hospital Course Summary Disclaimer: The visit summary below is not to be considered part of the above Progress Note. Hospital Course: 10/11/16 Admission Small bowel obstruction, likely due to abdominal adhesions. Patient declines pain medications at this time. Will order fentanyl 25mg Q2H PRN with zofran 4mg Q4h PRN. Patient NPO at this time, do not feel that she needs NGT decompression at this time. Continue supportive care. Gen surg consult in the AM. 10/12/16 Continue with gut rest and NG tube inplace. Remains NPO. She continues to utilize Toradol for pain control. Morphine is available, however, patient has declined. Continue with Protonix IV daily for GI protection. Zofran and Reglan available as needed for nausea Cytosis has resolved, white count 7.1 today. However, bands are up to 12%. Noted hypernatremia, sodium 149. Will change IV fluids to 1/2 NS at 100 ml/hr Overall appears to be medically stable. Appreciate consultation by Dr. Gonzalez for surgical evaluation and recommendations. Check CBC and BMP tomorrow morning to follow blood counts, renal function and electrolytes. 10/13/16 OP DAY PREOPERATIVE DIAGNOSIS Small bowel obstruction. POSTOPERATIVE DIAGNOSIS Small bowel obstruction secondary to adhesions. PROCEDURE PERFORMED Exploratory laparotomy with lysis of adhesions. 10/14/16 POD#1 IVF boluses given overnight due to decreased urine output. Creatinine stable. Albumen and IV Bumex ordered by Dr Gonzalez. Will d/c Catapres patch as BP low. Continue NG for bowel decompression - monitor output. Wean O2 as able - encourage IS. TPN started for nutritional support until diet able to be advanced. Will continue CCU monitoring due to low urine output - hope to transfer to surgical floor in near future. 10/15/16 POD#2 TPN increased to 60cc/hr by Sx to help nutrition. Will decrease 1/2NS to 40 cc/hr (total rate 100). Working to decrease overall volume status. Weight up since admit. Bladder retraining. Still need to accurately monitor urine output. Increase activities - nursing to ambulate QID; will consult PT/OT secondary to her gen debility post op. Routine Duoneb and Acapella for pulm toilet. Continue IS. Can wean O2 as able. Continue NG for bowel decompression - monitor output. No flatus, but NG output decreasing. BP still on low side-Catapres stopped yesterday. Monitor BP. As medical condition improving, will transfer to surgical floor for continuation of care. 10/16/16 POD#3 Potassium with decrease today to 2.9 - being replaced. Magnesium normal at 1.6. Continue TPN at 60cc/hr to help nutrition and maintain hydration. Will stop 1/2NS as BP improved. Weight still increased from admit, less fluid intake will help promote decrease weight. Will d/c Phan cath and strength improving. Encourage continued therapy and activities to help strength and functional status. Continue NG for bowel decompression - monitor output. No flatus. 10/17/16 16:19 Persistent hypokalemia, improving slowly; continue TPN-potassium adjusted in formula again today. Senna initiated per surgery, continue NG decompression. Check KUBs in a.m.
[2016-10-17] MEDS: FAT EMULSION 20% 100 ML IV SCH (16:52)
[2016-10-18] MEDS: ALBUTEROL/IPRATROPIUM 2.5mg-0.5mg/3ml NEB AEROSOL SCH ×5 (06:56→19:39)
--- NOTE | 2016-10-18 08:45 | XRay Report ---
EXAM: XR KUB w upright DATE: 10/18/2016 8:00 AM Encounter: Subsequent INDICATION: postop ileus COMPARISON: 10/13/2016 Technique: Upright and supine AP abdominal radiographs were obtained. Findings: Prominent both small bowel and colonic gas with scattered air-fluid levels. No intraperitoneal free air. Surgical skin noe and clips again noted. Interval removal of the prior enteric tube. No acute osseous abnormality identified. Degenerative spondylosis of the visualized spine. The visualized lung bases appear clear. Impression: Prominent both small bowel and colonic gas with scattered air-fluid levels which given surgical changes remain most consistent with postoperative adynamic ileus. .
[2016-10-18] MEDS: PANTOPRAZOLE 40 MG INJECTION IVP SCH (08:56)
[2016-10-18] MEDS: SALINE FLUSH 10ml SYRINGE IVF PRN ×2 (08:58→22:03)
[2016-10-18] MEDS: 1/2 NS 1,000 ML IV SCH (09:29)
[2016-10-18] MEDS ORDERED: ALTEPLASE (Cathflo*) 2mg INJECTION IV ONE (09:30)
[2016-10-18] MEDS ORDERED: .WATER FOR INJECTION,STERILE 10 ML VIAL IV ONE (09:36)
--- NOTE | 2016-10-18 10:44 | Progress Note ---
DATE 10/17/2016 FINDINGS Abiola this evening stated that she was feeling significantly better. She did have a BM earlier today. VITALS: Afebrile. Normotensive. The patient did have some tachycardia this evening with a pulse of 120. ABDOMEN: Soft. Minimal incisional tenderness. LABORATORY/RADIOGRAPH EVALUATION The patient had a CBC today that was unremarkable. BMP was also obtained and found to be overall within normal limits. ASSESSMENT 81-year-old family all status post exploratory laparotomy with extensive adhesiolysis secondary to small bowel obstruction. Patient doing well. PLAN Will go ahead and discontinue NG this evening and begin to advance diet to full liquids. I am pleased with the patient's progress at this time. PRIYANKD
--- NOTE | 2016-10-18 11:23 | Pharmacy Consult-TPN/PPN ---
Pharmacy Consult-TPN/PPN - Laboratory Information Chemistry Turbidity < 20 (0-20) 10/18/16 04:12 Sodium 142 MEQ/L (134-144) 10/18/16 04:12 Potassium 4.4 MEQ/L (3.6-5) 10/18/16 04:12 Chloride 101 MEQ/L (98-107) 10/18/16 04:12 Carbon Dioxide 34 MEQ/L (22-30) H 10/18/16 04:12 Anion Gap 7 MEQ/L (5-15) 10/18/16 04:12 BUN 32.0 MG/DL (7-17) H D 10/18/16 04:12 Creatinine 0.7 MG/DL (0.7-1.2) 10/18/16 04:12 GFR Calculation 80 10/18/16 04:12 BUN/Creatinine Ratio 46 RATIO (6-26) H 10/18/16 04:12 Glucose 139 MG/DL (65-110) H 10/18/16 04:12 Glucometer 148 mg/dL (65-110) 10/18/16 06:41 Calculated Osmolality 282 MOSM/KG (261-280) H 10/18/16 04:12 Calcium 8.7 MG/DL (8.4-10.2) 10/18/16 04:12 Phosphorus 3.6 MG/DL (2.5-4.5) 10/18/16 04:12 Magnesium 1.6 MG/DL (1.6-2.3) 10/16/16 04:13 Total Bilirubin 0.90 MG/DL (0.20-1.30) 10/17/16 04:15 Icterus Index < 2 (0-7) 10/18/16 04:12 AST 25 U/L (14-36) 10/17/16 04:15 ALT 39 U/L (9-52) 10/17/16 04:15 Alkaline Phosphatase 82 U/L (38-126) D 10/17/16 04:15 Total Protein 5.8 G/DL (6.3-8.2) L 10/17/16 04:15 Albumin 3.3 G/DL (3.5-5.0) L 10/17/16 04:15 Globulin 2.5 G/DL (2.4-3.6) 10/17/16 04:15 Albumin/Globulin Ratio 1.3 RATIO (1.1-2.2) 10/17/16 04:15 Lipase 103 U/L (23-300) 10/10/16 18:59 Specimen Hemolysis < 15 (0-25) 10/18/16 04:12 Intake and Output 10/17/16 10/18/16 10/19/16 06:59 06:59 06:59 Intake Total 2424.667 / 2424.667 1132 / 1132 Output Total 4535 / 4535 725 / 725 Balance -2110.333 / -2110.333 407 / 407 Weight 52.8 kg 51.8 kg 48.9 kg Intake: IV 2424.667 / 2424.667 982 / 982 1/2 Normal Saline 1,000 780.667 / 780.667 ml @ 40 mls/hr IV .Q24H LEONARDO Rx#:[id number] Intralipid 20% 100 ml @ 100 / 100 100 / 100 50 mls/hr IV 1600 LEONARDO Rx# :[id number] Infuvite Adult 10 ml 1144 / 1144 882 / 882 Multi-Trace Elements 1 ml KCl 80 Meq In TPN - Standard Formula 2,000 ml @ 60 mls/hr IV .Q24H LEONARDO Rx#:[id number] POTASSIUM CHLORIDE PREMIX 400 / 400 10 meq In 100 ml @ 100 mls/hr IV Q1H LEONARDO Rx#: [id number] Oral 150 / 150 Output: Urine 125 / 125 Urine Amount (Catheter) 4125 / 4125 150 / 150 Gastric Drainage 410 / 410 450 / 450 Right Nare 410 / 410 450 / 450 Other: # Voids 1 - Consult Information Diet advancing to full liquids today, TPN rate decreased to 30 mls/hr today per Dr. Greenberg. Potassium now at 4.4, Will decrrease total potassium in TPN by 40mEq. Thank you.
--- NOTE | 2016-10-18 14:07 | Progress Note ---
DATE 10/18/2016 FINDINGS Abiola this afternoon was in good spirits. She states that she did have a small BM today. She is requesting more to eat. PHYSICAL EXAM VITALS: Afebrile. Normotensive. Please refer to EMR. ABDOMEN: Soft. Minimal incisional tenderness. ASSESSMENT 81-year-old female status post exploratory laparotomy with lysis of adhesions secondary to small bowel obstruction. Patient making improvement. PLAN Will go ahead and advance diet as tolerated. Tomorrow if the patient is tolerating a regular diet and her pain is well controlled, will likely discharge at that time. I am pleased with the patient's progress. MTDD
[2016-10-18] MEDS ORDERED: MULTI-VIT INFUSION 10 ML, MULTI-TRACE ELEMENTS 1 ML, POTASSIUM CHLORIDE INJ 40 MEQ in ... IV SCH (15:00)
[2016-10-18] MEDS: FAT EMULSION 20% 100 ML IV SCH (16:17)
--- NOTE | 2016-10-18 16:44 | Progress Note ---
Subjective: Mrs. Chávez complained of mild nausea when seen this morning after having full liquids for breakfast. NG tube was removed yesterday evening and the patient reports no problems overnight. She continues to have mild abdominal discomfort; she reports an additional bowel movement yesterday although again not confirmed by nursing. She remains unsure of flatus. She denied dyspnea, chest pain, palpitations, lightheadedness, or difficulty voiding. She reports some back discomfort which indicated is chronic. Objective Vital signs: Temperature 97.2 F 10/18/16 16:15 Pulse Rate 104 H 10/18/16 16:15 Respiratory Rate 16 10/18/16 16:15 Blood Pressure 128/68 10/18/16 16:15 Pulse Oximetry 96 10/18/16 16:15 Oxygen Delivery Method Room Air EXAM General-NAD, alert, fluent speech HEENT-conjunctiva clear, sclera anicteric, oral membranes dry with faint white plaque suggestive of thrush; right IJ insertion site unremarkable Lungs-respirations nonlabored, good airflow, breath sounds clear Cardiac-regular rhythm, S1-S2 Abd-soft, mild generalized abdominal tenderness, bowel sounds present although diminished Ext-without edema Neuro-moving all extremities well Psych-calm, cooperative - Weight: 48.9 kg Results - Labs CBC & Chem 7: 10/18/16 04:12 10/18/16 04:12 Labs: Differentials today reports 28% segs, 4% bands, 62% lymphocytes - ABG Interpretation ABG results: 10/12/16 16:49 ABG pH 7.400 ABG pCO2 41 ABG pO2 54 L ABG HCO3 25 ABG Total CO2 26.7 ABG O2 Saturation 88.0 L ABG Base Excess 0.5 - Imaging and Cardiology Abdominal x-ray Status: image reviewed by me (flat/upright KUBs with multiple small air-fluid levels and mildly dilated loops of small bowel/colon suggestive of ileus) Assessment and Plan (1) Small bowel obstruction Current visit: Yes Status: Resolved (2) Oliguria and anuria Current visit: Yes Status: Resolved (3) COPD (chronic obstructive pulmonary disease) Current visit: Yes Status: Chronic DVT Prophylaxis: SCD's GI Prophylaxis: Protonix Resuscitation Status: Full Code Assessment and Plan: SBO-S/P Exploratory laparotomy + lysis of adhesions POD #4 Postoperative ileus Hypokalemia COPD GERD/hiatal hernia DJD Postoperative anemia Thrush Lymphocytosis Clinically stable, x-ray suggests component of postoperative ileus but tolerating limited oral intake. Continue ambulation, minimal pain. Initiate nystatin for thrush. Decreased TPN rate to 30 mL per hour-anticipate discontinuing tomorrow if tolerates by mouth well overnight Respiratory status stable. Resume Nexium by mouth for GERD and atorvastatin for hyperlipidemia. Lymphocytosis present, also present on admission-deferred to outpatient evaluation. Discussed with family at bedside and nursing. Sepsis Assessment - Evaluation Sepsis screening result: No Definite Risk Hospital Course Summary Disclaimer: The visit summary below is not to be considered part of the above Progress Note. Hospital Course: 10/11/16 Admission Small bowel obstruction, likely due to abdominal adhesions. Patient declines pain medications at this time. Will order fentanyl 25mg Q2H PRN with zofran 4mg Q4h PRN. Patient NPO at this time, do not feel that she needs NGT decompression at this time. Continue supportive care. Gen surg consult in the AM. 10/12/16 Continue with gut rest and NG tube inplace. Remains NPO. She continues to utilize Toradol for pain control. Morphine is available, however, patient has declined. Continue with Protonix IV daily for GI protection. Zofran and Reglan available as needed for nausea Cytosis has resolved, white count 7.1 today. However, bands are up to 12%. Noted hypernatremia, sodium 149. Will change IV fluids to 1/2 NS at 100 ml/hr Overall appears to be medically stable. Appreciate consultation by Dr. Gonzalez for surgical evaluation and recommendations. Check CBC and BMP tomorrow morning to follow blood counts, renal function and electrolytes. 10/13/16 OP DAY PREOPERATIVE DIAGNOSIS Small bowel obstruction. POSTOPERATIVE DIAGNOSIS Small bowel obstruction secondary to adhesions. PROCEDURE PERFORMED Exploratory laparotomy with lysis of adhesions. 10/14/16 POD#1 IVF boluses given overnight due to decreased urine output. Creatinine stable. Albumen and IV Bumex ordered by Dr Gonzalez. Will d/c Catapres patch as BP low. Continue NG for bowel decompression - monitor output. Wean O2 as able - encourage IS. TPN started for nutritional support until diet able to be advanced. Will continue CCU monitoring due to low urine output - hope to transfer to surgical floor in near future. 8/8/17 POD#2 TPN increased to 60cc/hr by Sx to help nutrition. Will decrease 1/2NS to 40 cc/hr (total rate 100). Working to decrease overall volume status. Weight up since admit. Bladder retraining. Still need to accurately monitor urine output. Increase activities - nursing to ambulate QID; will consult PT/OT secondary to her gen debility post op. Routine Duoneb and Acapella for pulm toilet. Continue IS. Can wean O2 as able. Continue NG for bowel decompression - monitor output. No flatus, but NG output decreasing. BP still on low side-Catapres stopped yesterday. Monitor BP. As medical condition improving, will transfer to surgical floor for continuation of care. 10/16/16 POD#3 Potassium with decrease today to 2.9 - being replaced. Magnesium normal at 1.6. Continue TPN at 60cc/hr to help nutrition and maintain hydration. Will stop 1/2NS as BP improved. Weight still increased from admit, less fluid intake will help promote decrease weight. Will d/c Phan cath and strength improving. Encourage continued therapy and activities to help strength and functional status. Continue NG for bowel decompression - monitor output. No flatus. 10/17/16 16:19 Persistent hypokalemia, improving slowly; continue TPN-potassium adjusted in formula again today. Senna initiated per surgery, continue NG decompression. Check KUBs in a.m. 10/18/16 16:54 Clinically stable, x-ray suggests component of postoperative ileus but tolerating limited oral intake. Continue ambulation, minimal pain. Initiate nystatin for thrush. Decreased TPN rate to 30 mL per hour-anticipate discontinuing tomorrow if tolerates by mouth well overnight Respiratory status stable. Resume Nexium by mouth for GERD and atorvastatin for hyperlipidemia. Lymphocytosis present, also present on admission-deferred to outpatient evaluation.
[2016-10-18] MEDS: NYSTATIN 500,000 units/5 ml ORAL LIQUID PO SCH ×2 (17:27→22:01)
[2016-10-18] MEDS ORDERED: ATORVASTATIN 20 MG TABLET PO SCH (22:00)
[2016-10-19] MEDS: ALBUTEROL 2.5mg/3ml (0.083%) NEB AEROSOL PRN (03:15)
[2016-10-19] MEDS ORDERED: OMEPRAZOLE 20 MG CAPSULE PO SCH (06:30)
[2016-10-19] MEDS: ALBUTEROL/IPRATROPIUM 2.5mg-0.5mg/3ml NEB AEROSOL SCH ×3 (08:29→15:59)
[2016-10-19] MEDS: NYSTATIN 500,000 units/5 ml ORAL LIQUID PO SCH ×3 (08:47→16:46)
[2016-10-19] MEDS ORDERED: CLONIDINE PATCH REMOVAL TD SCH (09:00)
[2016-10-19] MEDS ORDERED: ASPIRIN *EC* 81 MG TABLET PO SCH (09:00)
[2016-10-19] MEDS ORDERED: POLYETHYL GLYCOL 3350 17gm PACKET PO SCH (09:00)
--- NOTE | 2016-10-19 09:50 | Discharge Instructions ---
Discharge Plan - Med Rec/Dispo Referrals/Follow Up: Vince Gonzalez MD [Physician] - 1 Week Alysha Instructions: Bowel Obstruction (DC) Prescriptions: No Action Aspirin [Aspir 81] 81 mg PO DAILY #0 Atorvastatin Calcium 20 mg PO HS #0 Albuterol Sulfate 1 vial AEROSOL Q6H PRN #150 ml PRN Reason: WHEEZING Multivitamin [Multi-Day Vitamins] 1 tab PO DAILY #0 Esomeprazole [NEXIUM 20 mg Capsule] 20 mg PO DAILY #0 PEG 3350 17gm PACKET [Miralax] 17 gm PO DAILY Oxycodone *Ir* [Roxicodone *Ir*] 5 mg PO Q6H PRN PRN Reason: Pain
[2016-10-19] MEDS ORDERED: ACETAMINOPHEN 325 MG TABLET PO PRN (12:40)
[2016-10-19] MEDS: SALINE FLUSH 10ml SYRINGE IVF PRN (13:32)
--- NOTE | 2016-10-19 13:37 | Progress Note ---
DATE OF SERVICE 10/19/2016 FINDINGS Abiola this morning is without complaints. She states that she is ready to go home. Denies any element of abdominal pain or nausea. PHYSICAL EXAMINATION VITAL SIGNS: Afebrile. Normotensive. Please refer to EMR. ABDOMEN: Soft, nontender. Incision was clean, dry, and intact. LABORATORY/RADIOGRAPH EVALUATION Patient had a CBC today. Her white count is slightly elevated again at 14,000. Does have a slight left shift with 19% bands. BMP obtained and found to be without marked abnormalities. ASSESSMENT An 81-year-old female status post exploratory laparotomy with lysis of adhesions. Patient clinically doing quite well. PLAN I am a little concerned with her increasing white count and bandemia. Patient clinically is as stated above doing well. One could make an argument for dismissing the patient today given the fact that she remains afebrile and is clinically doing well. She is tolerating a regular diet. We will discuss with the hospitalist in regards to possible discharge. If the patient is discharged today, patient will need to return to the office at about a one-week interval for staple removal. One perhaps could make an argument for keeping the patient an additional day and rechecking CBC tomorrow. As above overall the patient is doing quite well today. POLINA
[2016-10-19 16:15] VITALS: BP 118/65; PULSE 100; RESP 18; TEMP 98.3; O2SAT 93
--- NOTE | 2016-10-19 17:20 | Discharge Instructions ---
Discharge Plan - Med Rec/Dispo Referrals/Follow Up: Vince Gonzalez MD [Physician] - 1 Week Milly Gonsalez DO [Family Provider] - 1 Week Alysha Instructions: Bowel Obstruction (DC) Prescriptions: New Nystatin Oral Liq. [Mycostatin] 5 ml PO QID #200 ml Acetaminophen [Tylenol] 325 - 650 mg PO Q4H PRN tablet PRN Reason: Pain Continue Aspirin [Aspir 81] 81 mg PO DAILY #0 Atorvastatin Calcium 20 mg PO HS #0 Albuterol Sulfate 1 vial AEROSOL Q6H PRN #150 ml PRN Reason: WHEEZING Multivitamin [Multi-Day Vitamins] 1 tab PO DAILY #0 Oxycodone *Ir* [Roxicodone *Ir*] 5 mg PO Q6H PRN #20 tablet PRN Reason: Pain Esomeprazole [NEXIUM 20 mg Capsule] 20 mg PO DAILY #0 PEG 3350 17gm PACKET [Miralax] 17 gm PO DAILY Discharge Instructions/Outpatient Orders: Final Provider Discharge Instructions Location: Determined By Patient - Disposition 01 Discharged Home, Self-Care
--- NOTE | 2016-10-19 18:13 | Discharge Summary ---
Discharge Information Date of admission: 10/10/16 22:02 Anticipated date of discharge: 10/19/16 Attending Physician: Janett Dela Cruz MD Primary care physician: Milly Gonsalez DO Consults: Vince Gonzalez - Discharge Diagnosis Discharge Diagnosis: Small bowel obstruction Hypokalemia, post-op Postoperative ileus Oral thrush COPD DJD Hiatal hernia - Procedures Procedures: Exploratory laparotomy with lysis of adhesions on 10/13/16 Placement of right IJ triple-lumen catheter on 10/13/16 - Laboratory Labs: On admission (10/10/16) white count was 14.4 thousand, hemoglobin 15.5, and platelet count 166,000. Admission electrolytes/liver enzymes were unremarkable with creatinine of 1.2. Lipase 103. 10/19/16 11:33 10/19/16 04:19 - Radiology Radiology: CT of the abdomen and pelvis on 10/10/16: Intrathoracic stomach. Small probable liver cysts. Mild intrahepatic bile duct dilatation likely related to age and prior cholecystectomy. The spleen shows a granuloma but is otherwise normal. Pancreas is grossly normal as are the adrenal glands. Simple renal cysts. Atherosclerotic arterial plaque. Dilated small bowel loops in the abdomen and pelvis. Uterus is grossly normal. Moderate stool in the colon. There are some decompressed distal small bowel loops with a transition point in the left pelvis seen on coronal image #16 and axial image 48. This appears to be the same area of transition as seen on the comparison study with a similar degree of bowel dilatation. Bone windows show degenerative changes. Impression: Acute distal small bowel obstruction, similar to November 2015. Upper GI with small bowel follow-through on 10/11/16: Water-soluble contrast was administered via the patient's nasogastric tube. The nasogastric tube is seen within the intrathoracic stomach. For the first 1.5 hours of imaging contrast remains within the intrathoracic stomach. At 2 1/2 hours after administration contrast begins traversing the moderately dilated small bowel. Contrast reaches the dilated pelvic loops of small bowel by the 3 1/2 hour ira. Contrast does not significantly progressed from this point between 3 1/2 and 6 1/2 hours following administration. There is no definite colonic contrast seen at the 6 1/2 hour time point although the distal contrast column is somewhat dilute. Impression: Delayed intestinal transit time with findings that could represent a high-grade partial or complete small bowel obstruction. KUB with upright on 10/12/16: Patient continues to show dilated loops of bowel. This is still somewhat disproportionate to the small bowel although, the contrast has reached the large bowel with a large amount of contrast identified in the pelvis. Numerous air-fluid levels are identified. Patient shows an NG tube which appears to be coiled in the large hiatal hernia above the diaphragm. Impression: 1. Patient continues to show multiple random air fluid levels with abnormally dilated loops of bowel consistent with generalized ileus versus distal small bowel obstruction. 2. Patient shows an NG tube coiled in a large hiatal hernia above the diaphragm. Chest x-ray on 10/13/16: Film obtained following placement of right IJ catheter-line in good position without evidence of pneumothorax. NG tube coiled in large hiatal hernia to the right of the midline. Heart and left lung unremarkable. No acute cardiopulmonary findings. KUB with upright on 10/13/16: Patient continues to show an NG tube coiled in the large hernia above the diaphragm. Multiple air-fluid levels and dilated loops of bowel remain. There is some residual contrast material present. Findings to support either a generalized ileus or a low obstruction. No free air was noted on the upright view. Impression: Continued dilated loops of bowel consistent with either an ileus or low obstruction. No free air noted. KUB with upright on 10/18/16: Prominent both small bowel and colonic gas with scattered air-fluid levels. No intraperitoneal free air. Surgical skin noe and clips again noted. Interval removal of the prior enteric tube. Impression: Prominent both small bowel and colonic gas with scattered air-fluid levels which given surgical changes remain most consistent with postoperative adynamic ileus. - Pathology Surgical pathology pending at discharge History of Present Illness HPI: 81 YO F with PMH of multiple abdominal surgeries, Dr. Gonzalez has done patient 's surgeries in the past per patient, presented to ED with complaint of bilateral abdominal pain. Patient says she has had intermittent abdominal pain for approx. one month. Says pain comes and goes. Today pain has been more intense and has remained constant. Patient has not seen her PCP for the intermittent abdominal pain over the last month. Last BM yesterday. Patient denies fever, chills, SOB, cough, CP, nausea, vomiting, diarrhea or dysuria. She presented to the ED today because her pain was at a 10/10. She refused pain medications in the ED, but did take some zofran. CT abd shows mild dilation of her small bowel consistent with SBO. She was admitted for supportive care and monitoring for resolution of symptoms. Hospital Course This is a general summary of the patient's hospital course. For more details refer to the complete medical record. Hospital course: Mrs. Chávez was admitted with small bowel obstruction. She was treated with IV antiemetics and pain medications in conjunction with IV fluids. Patient was NPO after admission. She was seen in consultation by Dr. Gonzalez and the following day underwent upper GI with small bowel follow-through demonstrating persistent changes of bowel obstruction although a small amount of contrast was seen in the colon the next day. Due to very delayed transit it was elected to take the patient to the operating room on October 13 where an adhesive band causing complete occlusion in the distal terminal ileum was identified. Patient underwent lysis of adhesions. No additional surgical abnormalities were identified. Right IJ triple-lumen catheter was placed due to poor venous access. The patient's postoperative course was complicated by mild anemia and slow return of bowel function. NG tube remained in through late in the day 10/17. Clear liquids were started on 10/18 with diet advanced over the next day. TPN was utilized for nutritional support postoperatively and titrated off 10/18-10/19 prior to discharge. Hypokalemia developed postoperatively requiring supplementation. The patient developed thrush late in the hospitalization for which oral nystatin was initiated and will continue following discharge. On the date of discharge the patient was noted to have modest elevation in white count and 19% bands with repeat labs demonstrating 11% bands. Procalcitonin was low and the patient was completely asymptomatic and afebrile. Increased white count was present the prior day with 62% lymphocytes and 5% bands. Further outpatient hematologic follow-up is recommended due to abnormalities seen. Bands ranged from 4 to 19% throughout the hospitalization without evidence of infection present at any point. On 10/19 the patient reported feeling well other than some minor abdominal discomfort. She reported baseline dyspnea due to underlying COPD. Oral intake was good. She had several stools the prior day and denied any urinary frequency or dysuria. Abdomen remains slightly distended and incision is clean and dry with noe intact. Respirations are nonlabored with good airflow and clear breath sounds are laterally. Oropharynx continues to reveal white plaques. TPN was tapered off with stable blood glucoses for 4 hours after discontinuation of TPN. Triple-lumen catheter was discontinued with good hemostasis. Patient was stable for discharge at this time and had previously received discharge instruction from Dr. Gonzalez. She is asked to follow up with Dr. Gonzalez and Dr. Gonsalez in approximately 1 week for reassessment. Hematologic studies can be repeated that time. She'll continue nystatin suspension for an additional 8-9 days for thrush and medications are otherwise unchanged from admission. New prescription for oxycodone IR was provided per patient request. Time spent with patient: discharge greater than 30 minutes Discharge Plan - Med Rec/Dispo Referrals/Follow Up: Vince Gonzalez MD [Physician] - 1 Week Milly Gonsalez DO [Family Provider] - 1 Week Alysha Instructions: Bowel Obstruction (DC) Prescriptions: New Nystatin Oral Liq. [Mycostatin] 5 ml PO QID #200 ml Acetaminophen [Tylenol] 325 - 650 mg PO Q4H PRN tablet PRN Reason: Pain Continue Aspirin [Aspir 81] 81 mg PO DAILY #0 Atorvastatin Calcium 20 mg PO HS #0 Albuterol Sulfate 1 vial AEROSOL Q6H PRN #150 ml PRN Reason: WHEEZING Multivitamin [Multi-Day Vitamins] 1 tab PO DAILY #0 Oxycodone *Ir* [Roxicodone *Ir*] 5 mg PO Q6H PRN #20 tablet PRN Reason: Pain Esomeprazole [NEXIUM 20 mg Capsule] 20 mg PO DAILY #0 PEG 3350 17gm PACKET [Miralax] 17 gm PO DAILY Discharge Instructions/Outpatient Orders: Final Provider Discharge Instructions Location: Determined By Patient
== END 2016-10-19 18:04 | disposition home health service (06) | DRG 336 ==
LOC: ED 18:13 → SRG 22:02 → CCU 10-13 16:05 → SRG 10-15 11:40
PROVIDERS: ADMIT Internal Medicine; ATTEND Internal Medicine

== ENCOUNTER 2017-04-27 00:24 | Inpatient (IN) ==
[2017-04-27] MEDS ORDERED: NS 1,000 ML IV ONE (01:03)
[2017-04-27] MEDS ORDERED: ALBUTEROL/IPRATROPIUM 2.5mg-0.5mg/3ml NEB AEROSOL ONE (01:03)
--- NOTE | 2017-04-27 01:06 | Emergency Department Report ---
General Adult HPI - General Chief complaint: Shortness of Breath/Dyspnea Stated complaint: soa, nausea Time Seen by Provider: 04/27/17 00:57 Source: patient Mode of arrival: ambulatory Limitations: no limitations - History of Present Illness HPI narrative: Patient presents with several day history of feeling "ill." Patient is very vague, but apparently she has been having chills and fevers, increased cough from her baseline, feelings of generalized weakness and shortness of breath. Tonight she decided come to the ER at midnight, but cannot tell me why. Poorly the symptoms have been ongoing for several days, and she states that they have not worsened tonight nor are there any new symptoms tonight. Patient continues to use albuterol twice a day as prescribed, and has used no other medications for her current symptoms. - Related Data Home Medications Medication Instructions Recorded Confirmed Aspirin [Aspir 81] 81 mg PO DAILY #0 01/10/10 10/10/16 Atorvastatin Calcium 20 mg PO HS #0 06/07/14 10/10/16 Esomeprazole [NEXIUM 20 mg Capsule] 20 mg PO DAILY #0 01/23/16 10/10/16 Multivitamin [Multi-Day Vitamins] 1 tab PO DAILY #0 01/23/16 10/10/16 PEG 3350 17gm PACKET [Miralax] 17 gm PO DAILY 09/03/16 10/10/16 Previous Rx's Medication Instructions Recorded Albuterol Sulfate 1 vial AEROSOL Q6H PRN #150 ml 09/10/15 Acetaminophen [Tylenol] 325 - 650 mg PO Q4H PRN tablet 10/19/16 Nystatin Oral Liq. [Mycostatin] 5 ml PO QID #200 ml 10/19/16 Oxycodone *IR* [Roxicodone *Ir*] 5 mg PO Q6H PRN #20 tablet 10/19/16 Allergies Allergy/AdvReac Type Severity Reaction Status Date / Time codeine Allergy Unknown Chest Verified 04/27/17 03:00 Pressure Review of Systems All systems: reviewed and negative except as stated PFSH Patient Stated Medical History Cataracts Yes: bilat Asthma Yes Chronic Obstructive Pulmonary Yes Disease (COPD) Sleep Apnea Yes: no CPAP Gastroesophageal Reflux Yes Disease Hiatal Hernia Yes Obstructive Bowel Yes Osteoarthritis Yes: Spine and hands Other Musculoskeletal Yes: arthritis Surgical History: Open cholecystectomy with common bile duct exploration & T- tube 03-22-2015 ([facility]). Right inguinal hernia repair 10-05-2015 ([facility]) . Breast Bx. Incisional hernia with mesh. Sigmoid colon resection for colon cancer . colonoscopy tubular adenoma x1 01-11-2010. Tonsillectomy. Bilateral salpingo-oophorectomy (patient still has uterus). Bilateral cataracts - Social History Smoking status: Current every day smoker Substance use type: does not use Alcohol intake frequency: does not drink Current residence: Apartment/Private Home Course Vital Signs Temperature 98.5 F 04/27/17 00:28 Pulse Rate 96 04/27/17 00:28 Respiratory Rate 24 04/27/17 00:28 Blood Pressure 118/66 04/27/17 00:28 Pulse Oximetry 93 04/27/17 00:28 Temperature 98.5 F 04/27/17 00:28 Pulse Rate 95 04/27/17 03:00 Respiratory Rate 22 04/27/17 01:10 Blood Pressure 133/79 04/27/17 03:00 Pulse Oximetry 92 04/27/17 03:00 Medical Decision Making - MDM Narrative Medical decision making narrative: Patient is given DuoNeb 2 - After the patient was brought back to a room, she began requesting something for her cough, she prefers liquid medicine, and "I need something right now." After discussing the patient's allergies, patient is given dextromethorphan and Tessalon Perle CBC - n CMP - n Influenza - influenza B-positive CXR - diffuse infiltrates consistent with COPD/influenza, no focal consolidations are seen After 2 DuoNeb's patient is breathing better, she was given cough medication per her request as well. However patient continues to appear moderately ill and is still hypoxemic on room air. Patient will be admitted inpatient for influenza with COPD exacerbation to Dr. Armas - Lab Data Result diagrams: 04/27/17 01:37 04/27/17 01:37 Lab Results 04/27/17 04/27/17 04/27/17 Range/Units 01:37 01:37 01:51 WBC 11.5 H (4.5-11.0) T/MM3 RBC 4.93 (4.00-5.20) M/MM3 Hgb 14.9 (12-16) GM/DL Hct 46.8 H (36-46) % MCV 94.9 (80-100) UM3 MCH 30.2 (26-34) UUG MCHC 31.8 (31-37) GM/DL RDW Std Deviation 55.3 H (36.9-50.2) FL Plt Count 143 (130-400) T/MM3 MPV 12.4 (9.4-12.4) UM3 Immature Gran % (Auto) 0.3 (0.0-0.5) % Neut % (Auto) 44.4 (33-66) % Lymph % (Auto) 49.9 H (23-45) % Hudson % (Auto) 4.9 (0-9.0) % Eos % (Auto) 0.2 (0-4) % Baso % (Auto) 0.3 (0-2) % Neut # (Auto) 5.1 (1.8-7.7) T/MM3 Lymph # (Auto) 5.7 H (1-4.8) T/MM3 Hudson # (Auto) 0.6 (0-0.8) T/MM3 Eos # (Auto) 0.0 (0-0.5) T/MM3 Baso # (Auto) 0.0 (0-0.2) T/MM3 Abs Immat Gran (auto) 0.03 (0.00-0.03) T/MM3 Turbidity < 20 (0-20) Sodium 141 (134-144) MEQ/L Potassium 4.4 (3.6-5) MEQ/L Chloride 101 (98-107) MEQ/L Carbon Dioxide 30 (22-30) MEQ/L Anion Gap 10 (5-15) MEQ/L BUN 15.0 (7-17) MG/DL Creatinine 0.8 (0.7-1.2) MG/DL GFR Calculation 68 BUN/Creatinine Ratio 19 (6-26) RATIO Glucose 115 H (65-110) MG/DL Calculated Osmolality 273 (261-280) MOSM/KG Calcium 8.9 (8.4-10.2) MG/DL Total Bilirubin 0.70 (0.20-1.30) MG/DL Conjugated Bilirubin 0.00 (0.00-0.30) MG/DL Unconjugated Bilirubin 0.20 (0.00-1.1) MG/DL Icterus Index < 2 (0-7) AST 31 (14-36) U/L ALT 18 (9-52) U/L Alkaline Phosphatase 150 H (38-126) U/L Total Protein 7.2 (6.3-8.2) G/DL Albumin 4.1 (3.5-5.0) G/DL Globulin 3.1 (2.4-3.6) G/DL Albumin/Globulin Ratio 1.3 (1.1-2.2) RATIO Plasma Lactate 1.3 (0.6-2.2) MMOL/L Specimen Hemolysis < 15 (0-25) Influenza Type A (PCR) Negative (Negative) Influenza Type B (PCR) Positive A* (Negative) Critical Care Time Critical Care Time: Yes Total Critical Care Time: 35 Attestation: Patient required aggressive intervention and diagnostics for difficulty breathing with hypoxemia and diffuse systemic illness Disposition Clinical Impression: Influenza B Disposition: 02 To [facility] [place] Acute Care Condition: Stable Prescriptions: No Action Aspirin [Aspir 81] 81 mg PO DAILY #0 Atorvastatin Calcium 20 mg PO HS #0 Albuterol Sulfate 1 vial AEROSOL Q6H PRN #150 ml PRN Reason: WHEEZING Multivitamin [Multi-Day Vitamins] 1 tab PO DAILY #0 Nystatin Oral Liq. [Mycostatin] 5 ml PO QID #200 ml Oxycodone *IR* [Roxicodone *Ir*] 5 mg PO Q6H PRN #20 tablet PRN Reason: Pain Esomeprazole [NEXIUM 20 mg Capsule] 20 mg PO DAILY #0 PEG 3350 17gm PACKET [Miralax] 17 gm PO DAILY Acetaminophen [Tylenol] 325 - 650 mg PO Q4H PRN tablet PRN Reason: Pain Referrals: Milly Gonsalez DO [Family Provider] - - Seen By: physician
[2017-04-27] MEDS: SALINE FLUSH 10ml SYRINGE IVF PRN ×4 (01:45→17:51)
[2017-04-27] MEDS ORDERED: BENZONATATE 200 MG CAPSULE PO ONE (02:57)
[2017-04-27] MEDS ORDERED: DEXTROMETHORPHAN 30 MG/5 ML ORAL LIQUID PO ONE (02:57)
[2017-04-27] MEDS ORDERED: METHYLPREDNISOLONE SOD SUCC 125mg/2ml INJECTION IVP ONE (04:07)
[2017-04-27] MEDS ORDERED: CEFTRIAXONE (ER USE ONLY) 1 GM in NS 100 ML IV ONE (04:07)
[2017-04-27] MEDS ORDERED: AZITHROMYCIN IV 500 MG in NS 250ml 250 ML IV ONE (04:07)
[2017-04-27] MEDS ORDERED: NS FLUSH BAG 500ml IV PRN (04:14)
[2017-04-27] MEDS ORDERED: ALBUTEROL 2.5mg/3ml (0.083%) NEB AEROSOL PRN (04:53)
[2017-04-27] MEDS ORDERED: MORPHINE SULFATE 2mg INJECTION IVP PRN (04:53)
[2017-04-27] MEDS ORDERED: AZITHROMYCIN IV 500 MG in NS 250ml 250 ML IV SCH (04:53)
[2017-04-27] MEDS ORDERED: HYDROCODONE/APAP 5mg/325mg TABLET PO PRN (04:53)
[2017-04-27] MEDS ORDERED: SENNA + DOCUSATE TABLET PO PRN (04:53)
[2017-04-27] MEDS ORDERED: ONDANSETRON 4 MG/2 ML INJECTION IVP PRN (04:53)
[2017-04-27] MEDS: NS 1,000 ML IV SCH ×2 (05:11→17:47)
--- NOTE | 2017-04-27 05:26 | History & Physical Report ---
History of Present Illness Date: 04/27/17 Chief complaint: don't feel well HPI: This is a 82 y/o female that lives at home alone. She started feeling bad yesterday and mostly had cough and shortness of breath. She continues to smoke at least 1/2 ppd and is known to have COPD. In the ED her CXR suggest right middle and lower lobe infiltate. Her influenza B is positve. The remaining labs are okay. The patient is hypoxic and at this time she will be admitted to treate influenza B pneumonia. Review of Systems Review of systems: mild headache, no ear pain, no change in hearing, no sore throat or pain with swallowing, no neck or jaw pain, no chest pain, is chronically short of breath , worse last 24 hours. no pnd, no orthopnea. no abdomen pain, no nausea /vomiting/diarrhea. no focal neuro complaints Past Medical History Patient Stated Medical History Migraine Yes Cataracts Yes: bilat Asthma Yes Chronic Obstructive Pulmonary Yes Disease (COPD) Sleep Apnea Yes: no CPAP Gastroesophageal Reflux Yes Disease Hiatal Hernia Yes Obstructive Bowel Yes Osteoarthritis Yes: Spine and hands Other Musculoskeletal Yes: arthritis Shingles Yes Surgical History: Open cholecystectomy with common bile duct exploration & T- tube 03-22-2015 (Lisa). Right inguinal hernia repair 10-05-2015 (Lisa) . Breast Bx. Incisional hernia with mesh. Sigmoid colon resection for colon cancer . colonoscopy tubular adenoma x1 01-11-2010. Tonsillectomy. Bilateral salpingo-oophorectomy (patient still has uterus). Bilateral cataracts Family History Updates: non contributory at this age - Social History Smoking status: Current every day smoker Substance use type: does not use Housing: house Household members: none Current occupational status: retired Does patient use chewing tobacco?: No Current residence: Apartment/Private Home Medications Home Medications Medication Instructions Recorded Confirmed Type Aspirin [Aspir 81] 81 mg PO DAILY #0 01/10/10 10/10/16 History Atorvastatin Calcium 20 mg PO HS #0 06/07/14 10/10/16 History Esomeprazole [NEXIUM 20 mg Capsule] 20 mg PO DAILY #0 01/23/16 10/10/16 History Multivitamin [Multi-Day Vitamins] 1 tab PO DAILY #0 01/23/16 10/10/16 History PEG 3350 17gm PACKET [Miralax] 17 gm PO DAILY 09/03/16 10/10/16 History Allergies Allergy/AdvReac Type Severity Reaction Status Date / Time codeine Allergy Unknown Chest Verified 04/27/17 03:00 Pressure Exam Vital Signs: Temperature 96.4 F L 04/27/17 04:55 Pulse Rate 87 04/27/17 04:55 Respiratory Rate 20 04/27/17 04:55 Blood Pressure 141/70 H 04/27/17 04:55 Pulse Oximetry 99 04/27/17 04:55 Telemetry Rhythm: Sinus Rhythm Height/Weight/BMI: Height 1.52 m Weight 44.9 kg Body Mass Index 19.3 - Constitutional Present: mild distress, well nourished, well developed, thin - Routine HEENT Exam Head: Present: normocephalic Eye: Present: EOMI, conjunctivae pink. Absent: scleral injection ENT: Present: mucous membranes moist - Routine Neck Exam Present: supple, full ROM - Routine Respiratory Exam Present: decreased breath sounds, distant breath sounds. Absent: accessory muscle use, rales, wheezes - Routine Cardiovascular Exam Present: RRR, no murmur - Routine Abdominal Exam Present: soft, normoactive bowel sounds, non distended, non tender - Routine Extremities Exam Present: no edema, full ROM - Routine Back/Spine/Pelvis Exam Back/Spine: Present: full ROM - Routine Skin Exam Present: intact, dry - Routine Neurological Exam Present: alert, oriented X3, CN II-XII intact. Absent: motor deficit - Routine Psychiatric Exam Present: normal affect Results - Labs CBC & Chem 7: 04/27/17 01:37 04/27/17 01:37 Labs: labs reviewed and are essential unremarkable Assessment and Plan (1) Influenza B Current visit: Yes Status: Acute (2) COPD (chronic obstructive pulmonary disease) Current visit: No Status: Chronic (3) Tobacco abuse Current visit: Yes Status: Acute (4) Community acquired pneumonia Current visit: Yes Status: Acute (5) GERD (gastroesophageal reflux disease) Current visit: Yes Status: Acute Assessment and Plan: 1. influenza B acute POA: at this time tamiflu, gentle hydration 2. mild exacerbation COPD acute POA: solumedrol,duoneb, albuterol prn, should improve with therapy provided 3. hypoxia acute POA: not hypoxic resp failure. due to # 1 and # 2. should improve as lungs are treated 4. GERD chronic POA: PPI 5. tobacco abuse chronic POA: [facility] to stop 6. hx of CHIQUITA chronic POA: not tolerat cpap 7 community acquired pneumonia acute POA: prod cough. cXR with hiatal hernia , cannot exclude infiltrate. with the mortality risk in this population and with [id number] chronic lung ds will initially cover with rocephin/zitrhomax. DVT Prophylaxis: SCD's, Lovenox GI Prophylaxis: Protonix Resuscitation Status: Full Code - Time spent with patient Time with patient PN: 30 minutes - Physician Narrative Physician: Kayla Greenberg MD Narrative: Date: 04/27/17 Time: 10:30 Dr. Armas's note reviewed. Mrs. Chávez interviewed and examined. CC: Dyspnea/cough HPI: Mrs. Chávez's note from past admissions. She is an 82-year-old female who typically does not require supplemental oxygen for underlying COPD. She presented to the emergency room overnight reporting one-day history of increasing dyspnea, exertional dyspnea, and cough occasionally productive of yellow/brown sputum. Cough is generally nonproductive however and patient describes cough as being excessive. In the emergency room she denied having fever and chills for 1 or 2 days although currently denies having chills or sweats. She describes excessive fatigue and having no energy but denies myalgias and arthralgias. Hypoxia was reported and supplemental oxygen initiated ; initial vital signs in the ER have patient on oxygen so it is unclear what her initial saturation was on room air. Preliminary chest x-ray interpretation was of possible right middle/lower lobe infiltrate and the patient tested positive for influenza B. She was hospitalized for COPD exacerbation with new hypoxia in conjunction with influenza pneumonia. This morning she reports continued fatigue and dyspnea. PH/SH/FH: agree with that recorded above by Dr. Armas with additions of history C. difficile colitis, colonic polyps, history colon cancer in 1979, and hyperlipidemia. In addition to surgeries previously noted she underwent exploratory laparotomy with adhesiolysis on 10/13/16 for bowel obstruction with wound VAC required postoperatively. She has no history of illicit drug use or alcohol use and smokes approximately 1/2 PPD cigarettes having done so since she was a young woman. She's been recently and would like her daughter to be her alternate decision maker. She reports having a living well, is a full code but doesn't want prolonged resuscitative efforts. ROS: 10 point review as per Dr. Armas; patient describes nasal congestion this morning and describes recent weight loss--10 point review is otherwise negative. EXAM: General-NAD, resting comfortably with head of bed elevated 20; 98.1 108/63 74 94%-2 L supplemental oxygen HEENT-PERRL, EOMI without nystagmus, conjunctiva clear, sclera anicteric, conjugate gaze, facial structures symmetric, oropharynx clear-dentures in, neck supple and without adenopathy Lungs-respirations nonlabored, coarse breath sounds 2/3s up the right posterior field and anterior right lung, left lung clear, no wheezing appreciated on my exam Cardiac-regular rhythm, S1-S2 Abd-soft, nontender, bowel sounds present Ext-without edema, degenerative changes in the small joints of the hands Skin-no evidence of rash or wounds on exposed skin surfaces Neuro-cranial nerves 3-12 intact, motor tone/power within normal limits, sensation intact to light touch 4 extremities Psych-calm, cooperative, pleasant DATA: Chest x-ray reviewed by myself-COPD, I don't appreciate infiltrate previously described. White count 11.5, hemoglobin 14.9; electrolytes unremarkable, liver enzymes normal except alk phosphatase 150. Lactic acid 1.3-0.7 Influenza B positive A/P: COPD exacerbation Acute hypoxic respiratory failure Influenza B-acute Tobacco abuse, chronic CKD, stage 2 GERD/HH Hyperlipidemia Tamiflu initiated, continue Solu-Medrol, DuoNeb treatments, and supplemental oxygen-titrate as status permits. Follow-up chest x-ray, exam consistent with right-sided pneumonia although radiographically I don't see one at present. Continue ceftriaxone/azithromycin for community-acquired pneumonia although influenza pneumonia more likely given clinical setting. Monitor blood sugars while on steroids. PT/OT evaluations tomorrow. Resume home PPI and statin. Hospital Course Summary Disclaimer: The visit summary below is not to be considered part of the above Progress Note. Hospital Course: 04/27/17 Patient admitted with increasing dyspnea and cough. Hypoxic in the emergency room and influenza B identified. Tamiflu initiated, continue Solu-Medrol, DuoNeb treatments, and supplemental oxygen-titrate as status permits. Follow-up chest x-ray, exam consistent with right-sided pneumonia although radiographically I don't see one at present. Continue ceftriaxone/azithromycin for community-acquired pneumonia although influenza pneumonia more likely given clinical setting. Monitor blood sugars while on steroids.
[2017-04-27] MEDS: ALBUTEROL/IPRATROPIUM 2.5mg-0.5mg/3ml NEB AEROSOL SCH ×3 (07:35→20:06)
--- NOTE | 2017-04-27 08:36 | XRay Report ---
INDICATION: cough, dyspnea, hypoxia PROCEDURE: CHEST 2-VIEWS UPRIGHT (PA & LAT) Encounter: Initial COMPARISON: October 13, 2016 FINDINGS: Prior tubes and lines have been removed. Improved aeration of the right lung base. Hyperinflation with emphysema. No focal pneumonia, pleural effusion or pneumothorax. Heart size and mediastinal contours are stable. Pulmonary vascularity is within normal limits. Impression: Improving appearance of the chest without focal pneumonia or CHF. .
[2017-04-27] MEDS: ENOXAPARIN 40 MG/0.4 ML INJECTION SQ SCH (09:22)
[2017-04-27] MEDS: NS IV SCH (09:22)
[2017-04-27] MEDS: CEFTRIAXONE IV SCH (09:22)
[2017-04-27] MEDS: METHYLPREDNISOLONE SOD SUCC 125mg/2ml INJECTION IVP SCH ×3 (09:22→20:03)
[2017-04-27] MEDS: INSULIN ASPART 100unit/ml INJECTION SQ PRN ×2 (11:46→14:48)
[2017-04-28] MEDS: NS 1,000 ML IV SCH ×3 (02:37→16:01)
[2017-04-28] MEDS: METHYLPREDNISOLONE SOD SUCC 125mg/2ml INJECTION IVP SCH ×3 (03:54→16:01)
[2017-04-28] MEDS: OMEPRAZOLE 20 MG CAPSULE PO SCH (08:20)
[2017-04-28] MEDS: ENOXAPARIN 40 MG/0.4 ML INJECTION SQ SCH (08:21)
[2017-04-28] MEDS ORDERED: AZITHROMYCIN IV 500 MG in NS 250ml 250 ML IV SCH (09:00)
--- NOTE | 2017-04-28 09:39 | Progress Note ---
- Date 04/28/17 Subjective: Patient is seen sitting in her chair before breakfast. She is complaining of nausea which started over the past 5-10 minutes. She has been up walking this morning and had no probs with SOA. She is not requiring O2 this am. Objective Vital signs: Temperature 96.0 F L 04/28/17 07:21 Pulse Rate 67 04/28/17 07:21 Respiratory Rate 17 04/28/17 07:21 Blood Pressure 128/69 04/28/17 07:21 Pulse Oximetry 90 04/28/17 07:21 Height/Weight/BMI: Height 1.52 m Weight 51.2 kg Body Mass Index 19.3 - Constitutional Present: no acute distress, well nourished, well developed - Routine HEENT Exam Head: Present: normocephalic, atraumatic - Routine Respiratory Exam Present: decreased breath sounds (b/l bases), CTA bilaterally. Absent: wheezes - Routine Cardiovascular Exam Present: RRR, no murmur - Routine Abdominal Exam Present: soft, non distended, non tender - Routine Extremities Exam Present: no edema, normal capillary refill - Routine Skin Exam Present: dry, warm - Routine Neurological Exam Present: alert, oriented X3 - Routine Lymphatic Exam Lymphatic: Absent: adenopathy - Routine Psychiatric Exam Present: normal affect, cooperative Results - Labs CBC & Chem 7: 04/28/17 04:43 04/28/17 04:43 Assessment and Plan (1) Influenza B Current visit: Yes Status: Acute (2) COPD exacerbation Current visit: Yes Status: Acute Assessment and Plan: Assessment COPD exacerbation Acute hypoxic respiratory failure Influenza B-acute CAP vs influenzal pneumonia Tobacco abuse, chronic CKD, stage 2 GERD/HH Hyperlipidemia CHIQUITA - doesn't tolerate CPAP Plan Give Zofran now for nausea. Continue Tamiflu and duonebs. Decreased solumedrol to q 8hrs from q 6 hrs. If she continues to take p.o. well, can DC IVF's. Home meds resumed. Consider DC of Rocephin and Zithromax given neg CXR and improvement in lung sounds. Offer nicotine patch. DVT Prophylaxis: SCD's, Lovenox Resuscitation Status: Full Code - Physician Narrative Physician: Kayla Greenberg MD Narrative: Date: 04/28/17 Time: 2209 I have independently evaluated and examined this patient. I reviewed the chart, the patient's history, and the CHANGE ROOM ATTENDANT/PA's documented findings as above. We discussed and formulated the assessment and plan as above with additions as below: Mrs. Chávez reports feeling significantly improved. She reports cough is improved and dyspnea has resolved. She walked with physical therapy earlier and denies lightheadedness. Appetite remains poor however. Afebrile, alert, NAD Respirations nonlabored, decreased airflow throughout, breath sounds are clear anteriorly and in the upper posterior de león, minimal airflow audible at the bases posteriorly No wheezing appreciated at time of evaluation. Clinically improving with steroids, borderline oxygenation with room air saturations ranging from 88-94% Oxygen resumed this evening at 1 L. Admission chest x-ray overread by radiology-NAD. Repeat film in a.m. Hospital Course Summary Disclaimer: The visit summary below is not to be considered part of the above Progress Note. Hospital Course: 04/27/17 Patient admitted with increasing dyspnea and cough. Hypoxic in the emergency room and influenza B identified. Tamiflu initiated, continue Solu-Medrol, DuoNeb treatments, and supplemental oxygen-titrate as status permits. Follow-up chest x-ray, exam consistent with right-sided pneumonia although radiographically I don't see one at present. Continue ceftriaxone/azithromycin for community-acquired pneumonia although influenza pneumonia more likely given clinical setting. Monitor blood sugars while on steroids. 04/28/17 Give Zofran now for nausea. Continue Tamiflu and duonebs. Decreased solumedrol to q 8hrs from q 6 hrs. If she continues to take p.o. well, can DC IVF's. Home meds resumed. Consider DC of Rocephin and Zithromax given neg CXR and improvement in lung sounds. Offer nicotine patch.
[2017-04-28] MEDS ORDERED: ACETAMINOPHEN 325 MG TABLET PO PRN (09:50)
[2017-04-28] MEDS ORDERED: NICOTINE 14 MG PATCH TD PRN (09:59)
[2017-04-28] MEDS ORDERED: PROMETHAZINE 25 MG INJECTION IVP ONE (10:23)
[2017-04-28] MEDS: CEFTRIAXONE IV SCH (10:28)
[2017-04-28] MEDS: NS IV SCH (10:28)
[2017-04-28] MEDS: POLYETHYL GLYCOL 3350 17gm PACKET PO SCH (10:29)
[2017-04-28] MEDS: ALBUTEROL/IPRATROPIUM 2.5mg-0.5mg/3ml NEB AEROSOL SCH ×3 (11:05→20:35)
[2017-04-28 15:12] VITALS: BMI 20.6
[2017-04-28] MEDS: INSULIN ASPART 100unit/ml INJECTION SQ PRN (16:01)
[2017-04-28] MEDS ORDERED: ATORVASTATIN 20 MG TABLET PO SCH (21:00)
[2017-04-29] MEDS: METHYLPREDNISOLONE SOD SUCC 125mg/2ml INJECTION IVP SCH ×2 (01:51→09:35)
[2017-04-29] MEDS: NS 1,000 ML IV SCH (02:01)
[2017-04-29] MEDS: OMEPRAZOLE 20 MG CAPSULE PO SCH (06:36)
[2017-04-29] MEDS: ALBUTEROL/IPRATROPIUM 2.5mg-0.5mg/3ml NEB AEROSOL SCH ×3 (06:45→16:50)
[2017-04-29] MEDS ORDERED: NICOTINE PATCH REMOVAL TD PRN (09:00)
[2017-04-29] MEDS ORDERED: ASPIRIN *EC* 81 MG TABLET PO SCH (09:00)
--- NOTE | 2017-04-29 09:08 | XRay Report ---
Indication: hypoxia, COPD exacerbation PROCEDURE: XR chest 1V: Encounter: Initial Comparison: April 27, 2017 Findings: Worsening airspace consolidation in the right lower lobe with increasing small effusions. Emphysema. No pneumothorax. Heart size and mediastinal contours are stable. Pulmonary vascularity is more prominent. Impression: Increasing pleural effusions and mild to moderate pulmonary edema. .
[2017-04-29 09:27] VITALS: BP 142/71; PULSE 60; TEMP 95.7
[2017-04-29] MEDS: ENOXAPARIN 40 MG/0.4 ML INJECTION SQ SCH (09:35)
[2017-04-29] MEDS: POLYETHYL GLYCOL 3350 17gm PACKET PO SCH (10:28)
[2017-04-29 13:16] VITALS: O2SAT 92
--- NOTE | 2017-04-29 15:56 | Discharge Summary ---
Discharge Information Date of admission: 04/27/17 04:15 Anticipated date of discharge: 04/29/17 Attending Physician: Kylah Heart MD Primary care physician: Milly Gonsalez, DO - Discharge Diagnosis (1) Influenza B Status: Acute Influenza B Acute Hypoxic Respiratory Failure COPD exacerbation Tobacco abuse, chronic CKD, stage 2 GERD Hyperlipidemia CHIQUITA - doesn't tolerate CPAP - Laboratory Labs: 04/29/17 05:11 04/29/17 05:11 - Microbiology Influenza B+ - Radiology Radiology: CXR-no acute process History of Present Illness HPI: This is a 82 y/o female that lives at home alone. She started feeling bad yesterday and mostly had cough and shortness of breath. She continues to smoke at least 1/2 ppd and is known to have COPD. In the ED her CXR suggest right middle and lower lobe infiltate. Her influenza B is positve. The remaining labs are okay. The patient is hypoxic and at this time she will be admitted to treate influenza B pneumonia. Objective Vital signs: Temperature 95.7 F L 04/29/17 09:25 Pulse Rate 60 04/29/17 09:25 Respiratory Rate 18 04/29/17 13:10 Blood Pressure 142/71 H 04/29/17 09:25 Pulse Oximetry 92 04/29/17 13:15 Rhythm: Normal Sinus Rhythm Height/Weight/BMI: Height 5 ft Weight 49.8 kg Body Mass Index 20.6 - Constitutional Present: no acute distress, thin - Routine HEENT Exam Head: Present: normocephalic, atraumatic Eye: Present: EOMI, conjunctivae pink ENT: Present: mucous membranes moist - Routine Respiratory Exam Present: CTA bilaterally. Absent: respiratory distress - Routine Cardiovascular Exam Present: RRR, no murmur - Routine Abdominal Exam Present: soft, normoactive bowel sounds - Routine Extremities Exam Present: no edema, non tender - Routine Musculoskeletal Exam Musculoskeletal: Present: no clubbing or cyanosis, no tenderness - Routine Skin Exam Present: intact, dry, warm - Routine Neurological Exam Present: alert, oriented X3, CN II-XII intact - Routine Psychiatric Exam Present: normal affect Hospital Course This is a general summary of the patient's hospital course. For more details refer to the complete medical record. Hospital course: Patient admitted with increasing dyspnea and cough. Hypoxic in the emergency room and influenza B identified. Tamiflu initiated and steroids. Patient was initially on oxygen which was titrated to room air. Patient was initially on antibiotics, which were discontinued due to no clinical evidence of bacterial infection. Patient was counseled on smoking cessation. Symptoms of influenza discussed with patient and typical course of illness. Prescription for Tamiflu provided. Patient was examined on day of discharge and found to have clear lung exam and was feeling well. She was tolerating PO well and felt ready for discharge. Plan for discharge today and follow up with PCP within 7 days. Discharge Plan - Discharge Disposition Discharge Date: 04/29/17 Disposition: 01 Discharged Home, Self-Care *Condition: Stable Reason For Visit (Visit label in EMR): Influenza B - Discharge Medications *Discharge Medications: New Oseltamivir Cap [Tamiflu] 75 mg PO BID #9 cap Continue Aspirin [Aspir 81] 81 mg PO DAILY #0 Atorvastatin Calcium 20 mg PO HS #0 Multivitamin [Multi-Day Vitamins] 1 tab PO PRN PRN #0 PRN Reason: when she thinks about taking Albuterol Sulfate 1 vial AEROSOL BID PRN PRN Reason: WHEEZING Cholecalciferol [Vit. D-3] 1 tab PO DAILY Esomeprazole [NEXIUM 20 mg Capsule] 20 mg PO DAILY #0 PEG 3350 17gm PACKET [Miralax] 17 gm PO DAILY Acetaminophen [Tylenol] 325 - 650 mg PO Q4H PRN tab PRN Reason: Pain - Discharge Packet/Instructions *Diet: Regular *Activity: As tolerated *Pain Management/Treatment: Acetominophen as needed *Wound Care: N/A *Expected Signs/Symptoms: Cough, may continue to have fever, tiredness *Notify Physician if: Unable to tolerate diet, signs of dehydration, weakness *During Business Hours Contact: Dr. Gonsalez *After Business Hours Contact: weight caller physician or ER *Pending Lab/Results: No Pending Lab - Referrals/Follow Up *Referrals/Follow Up: Milly Gonsalez DO [Family Provider] - (Follow up within 7 days ) - Patient Handouts Patient Handouts: Influenza (GEN) - Dismissal Complete Discharge Instructions are:: Complete Physician Narrative - Narrative Attestation Narrative: Date: 04/29/17 Time: 1462
[2017-04-29] MEDS: INSULIN ASPART 100unit/ml INJECTION SQ PRN (16:00)
[2017-04-29 17:02] VITALS: RESP 24
== END 2017-04-29 17:18 | disposition home health service (06) | DRG 193 ==
LOC: ED 00:24 → SUATTDRO 04:15 → MED 04:15
PROVIDERS: ADMIT Emergency Medicine; ATTEND Pediatrics

== ENCOUNTER 2017-05-19 03:33 | Inpatient (IN) ==
[2017-05-19] MEDS ORDERED: SALINE FLUSH 10ml SYRINGE IVF PRN (03:52)
[2017-05-19] MEDS ORDERED: ONDANSETRON ODT 4 MG TABLET PO ONE (03:52)
[2017-05-19] MEDS ORDERED: NS 1,000 ML IV SCH (04:00)
[2017-05-19] MEDS ORDERED: ONDANSETRON 4 MG/2 ML INJECTION IVP ONE (04:01)
[2017-05-19] MEDS ORDERED: FentaNYL 100 MCG/2 ML INJECTION IVP ONE ×2 (04:14→05:31)
--- NOTE | 2017-05-19 04:23 | Emergency Department Report ---
Abdominal Pain HPI - General Chief Complaint: Abdominal Pain <ArtemioCesar hill Q - 05/19/17 07:08> Stated Complaint: abd pain, nausea <HarlanCesar hill - 05/19/17 07:08> Time Seen by Provider: 05/19/17 03:52 <HarlanCesar hill - 05/19/17 07:08> Source: patient, RN notes reviewed, old records reviewed <July,[facility] 04:23> Mode of arrival: ambulatory <July,[facility] 05/19/17 04:23> Limitations: no limitations <July,[facility] 05/19/17 04:23> - History of Present Illness HPI narrative: 82yo woman presents to the ER for evaluation of diffuse abdominal pain. Pt began to have diffuse 'pain' 2 hours prior to arrival. Has a h/o SBO; thinks that her sx tonight are similar. Had a BM >24hrs prior to arrival, but none since. Has some associated nausea. Has had numerous prior abd surgeries. <July,[place] 05/19/17 04:23> MD complaint: abdominal pain <July,[facility] 05/19/17 04:23> Onset (ago): hour(s) (2) <eb 05/19/17 04:23> Consistency: constant <eb 05/19/17 04:23> Location: diffuse <eb 05/19/17 04:23> Severity: severe <July,[facility] 05/19/17 04:23> Severity scale (1-10): 8 <July,[place] 05/19/17 04:23> Quality: other ("pain") <July,[facility] 05/19/17 04:23> Radiation: none <July,[place] 05/19/17 04:23> Migration to: no migration <eb 05/19/17 04:23> Relieving factors: nothing <July,[facility] 05/19/17 04:23> Exacerbating factors: movement <July,[facility] 05/19/17 04:23> Context: history of similar episodes <July,[place] 05/19/17 04:23> - Related Data Home Medications Medication Instructions Recorded Confirmed Aspirin [Aspir 81] 81 mg PO DAILY #0 01/10/10 05/19/17 Atorvastatin Calcium 20 mg PO HS #0 06/07/14 05/19/17 Esomeprazole [NEXIUM 20 mg Capsule] 20 mg PO DAILY #0 01/23/16 05/19/17 Multivitamin [Multi-Day Vitamins] 1 tab PO PRN PRN #0 01/23/16 05/19/17 PEG 3350 17gm PACKET [Miralax] 17 gm PO DAILY 09/03/16 05/19/17 Albuterol Sulfate 1 vial AEROSOL BID PRN 04/27/17 05/19/17 Cholecalciferol [Vit. D-3] 1 tab PO DAILY 04/27/17 05/19/17 <Cesar Ulloa Q - 05/19/17 07:08> Allergies Allergy/AdvReac Type Severity Reaction Status Date / Time codeine Allergy Unknown Chest Verified 04/27/17 03:00 Pressure <Cesar Ulloa Q - 05/19/17 07:08> Review of Systems All systems: reviewed and negative except as stated <July,Efrain M - 05/19/17 04 :23> Gastrointestinal: Reports: as per HPI, abdominal pain, nausea. Denies: vomiting , diarrhea, constipation, hematemesis, melena, hematochezia <July,Ferain M - 02/24 04:23> [facility] Patient Stated Medical History Migraine Yes Cataracts Yes: bilat Other HEENT Yes: TMJ Asthma Yes Bronchitis Yes Chronic Obstructive Pulmonary Yes Disease (COPD) Pneumonia Yes Sleep Apnea Yes: no CPAP Other Respiratory INFLUENZA MULTIPLE TIMES, INSOMNIA Gastroesophageal Reflux Yes Disease Hiatal Hernia Yes Obstructive Bowel Yes Other GI Yes: CONSTIPATION Hx Urinary Tract Infection Yes Anemia Yes Osteoarthritis Yes: Spine and hands Other Musculoskeletal Yes: arthritis Cellulitis Yes Shingles Yes <Cesar Ulloa Q - 05/19/17 07:08> Patient Stated Medical History Migraine Yes Cataracts Yes: bilat Asthma Yes Chronic Obstructive Pulmonary Yes Disease (COPD) Sleep Apnea Yes: no CPAP Gastroesophageal Reflux Yes Disease Hiatal Hernia Yes Obstructive Bowel Yes Osteoarthritis Yes: Spine and hands Other Musculoskeletal Yes: arthritis Shingles Yes <July,Efrain M - 05/19/17 04:23> Surgical History: Open cholecystectomy with common bile duct exploration & T- tube 03-22-2015 (Lisa). Right inguinal hernia repair 10-05-2015 (Lsia) . Breast Bx. Incisional hernia with mesh. Sigmoid colon resection for colon cancer . colonoscopy tubular adenoma x1 01-11-2010. Tonsillectomy. Bilateral salpingo-oophorectomy (patient still has uterus). Bilateral cataracts <05/19/17 04:23> Family History: Family History (Last Updated 04/27/17 @ 10:34 by Kayla Greenberg MD) Maternal Aunt Breast cancer Father Leukemia Brother Cancer of kidney Colon cancer Cancer of gallbladder and extrahepatic bile ducts Sister Alzheimer disease HTN (hypertension) <Cesar Ulloa Q 05/19/17 07:08> Family History (Last Updated 04/27/17 @ 10:34 by Kayla Greenberg MD) Maternal Aunt Breast cancer Father Leukemia Brother Cancer of kidney Colon cancer Cancer of gallbladder and extrahepatic bile ducts Sister Alzheimer disease HTN (hypertension) <05/19/17 04:23> Family History Updates: non contributory at this age <05/19/17 04:23> - Social History Smoking status: Current every day smoker <05/19/17 04:23> Packs-years: 63 <05/19/17 04:23> second hand exposure: No <05/19/17 04:23> Substance use type: does not use <05/19/17 04:23> Alcohol intake frequency: does not drink <05/19/17 04:23> Housing: house <05/19/17 04:23> Household members: none <05/19/17 04:23> Current occupational status: retired <05/19/17 04:23> Does patient use chewing tobacco?: No <05/19/17 04:23> Current residence: Apartment/Private Home <05/19/17 04:23> Physical Exam - Limitations Limitations: no limitations <12/18 04:23> - General General appearance: alert, in no apparent distress <eb 05/19/17 04: 23> - Normal Exams: Head:: Normocephalic without trauma <05/19/17 04:23> Eyes:: Pupils are PERRLA w/ EOMI, No scleral icterus, irritation, or foreign bodies noted <eb 05/19/17 04:23> ENMT:: No facial trauma, nasal exudates, pharyngeal erythema, or exudates are noted <July,[place] 05/19/17 04:23> Neck:: Full range of motion, without adenopathy <05/19/17 04:23> Lymphatic:: No lymphadenopathy <05/19/17 04:23> Musculoskeletal:: No tenderness, or deformity noted <July,E[place]rain 05/19/17 04 :23> Integumentary:: No rashes, hives, or bruising noted <05/19/17 04 :23> Neurological:: Patient is alert, and oriented, cranial nerves, motor/sensory/ cerebellar, exams w/o gross deficits <05/19/17 04:23> Psychiatric:: Patient exhibits, appropriate attention <05/19/17 04:23> - Chest Chest inspection: Present: normal inspection, symmetric chest wall rise. Absent : tenderness, rash <eb 05/19/17 04:23> - Respiratory Respiratory exam: Present: normal lung sounds bilaterally. Absent: respiratory distress, wheezes, stridor, prolonged expiratory phase, crackles <July,E[place]rain 05/19/17 04:23> - Cardiovascular Cardiovascular exam: Present: regular rate, normal rhythm, normal heart sounds. Absent: rubs, gallop, clicks <July,E[place]rain 05/19/17 04:23> - Abdominal Exam Abdominal exam: Present: soft, tenderness, normal bowel sounds. Absent: distention, guarding, rebound, rigidity <July,Efrain 05/19/17 04:23> Abdominal tenderness: Present: diffuse, moderate <July,[place] 05/19/17 04:23 > Course Vital Signs Temperature 97.3 F 05/19/17 03:38 Pulse Rate 80 05/19/17 03:38 Respiratory Rate 20 05/19/17 03:38 Blood Pressure 191/91 H 05/19/17 03:38 Pulse Oximetry 95 05/19/17 03:38 Temperature 97.3 F 05/19/17 03:38 Pulse Rate 80 05/19/17 03:38 Respiratory Rate 20 05/19/17 03:38 Blood Pressure 191/91 H 05/19/17 03:38 Pulse Oximetry 95 05/19/17 03:38 <Cesar Ulloa Q - 05/19/17 07:08> Vital Signs Temperature 97.3 F 05/19/17 03:38 Pulse Rate 80 05/19/17 03:38 Respiratory Rate 20 05/19/17 03:38 Blood Pressure 191/91 H 05/19/17 03:38 Pulse Oximetry 95 05/19/17 03:38 Temperature 97.3 F 05/19/17 03:38 Pulse Rate 80 05/19/17 03:38 Respiratory Rate 20 05/19/17 03:38 Blood Pressure 191/91 H 05/19/17 03:38 Pulse Oximetry 95 05/19/17 03:38 <JulyEfrain - 05/19/17 04:23> Abdominal Pain - MDM Narrative Medical decision making narrative: Patient with a small bowel obstruction, contacted Dr. Gonzalez, he would request admit to the hospitalist service he will follow-up, place NG tube. Discussed case with Dr. Greenberg, she will admit <Cesar Ulloa - 05/19/17 07:08> - Differential Diagnosis Differential diagnosis: Likely: abdominal pain, constipation, diverticulitis, gastroenteritis, small bowel obstruction <JulyRomelEfrain - 05/19/17 04:23> - Medical Records Attestation: I reviewed the patient's medical records. <Cesar Ulloa - 05/19/17 06:36> I reviewed the patient's medical records. <JulyEfrain - 05/19 04:23> - Lab Data Attestation: I reviewed the patient's lab results. <Cesar Ulloa - 05/19 06:36> I reviewed the patient's lab results. <Efrain Topete M - 05/19/17 04:23> Result diagrams: 05/19/17 04:17 05/19/17 04:17 <Cesar Ulloa Q - 05/19/17 07:08> Lab Results 05/19/17 05/19/17 Range/Units 04:17 04:17 WBC 10.6 (4.5-11.0) T/MM3 RBC 4.82 (4.00-5.20) M/MM3 Hgb 14.6 (12-16) GM/DL Hct 46.4 H (36-46) % MCV 96.3 (80-100) UM3 MCH 30.3 (26-34) UUG MCHC 31.5 (31-37) GM/DL RDW Std Deviation 56.2 H (36.9-50.2) FL Plt Count 179 D (130-400) T/MM3 MPV 12.1 (9.4-12.4) UM3 Immature Gran % (Auto) Not performed Neut % (Auto) Not performed Lymph % (Auto) Not performed [place] % (Auto) Not performed Eos % (Auto) Not performed Baso % (Auto) Not performed Neut # (Auto) Not performed Lymph # (Auto) Not performed [place] # (Auto) Not performed Eos # (Auto) Not performed Baso # (Auto) Not performed Abs Immat Gran (auto) Not performed Neutrophils % (Manual) 44.0 (33-66) % Band Neutrophils % 3.0 (0-6) % Lymphocytes % (Manual) 44.0 (23-45) % Monocytes % (Manual) 6.0 (0-9.0) % Eosinophils % (Manual) 2.0 (0-4) % Basophils % (Manual) 1.0 (0-2) % Neutrophils # (Manual) 4.7 (1.8-7.7) T/MM3 Band Neutrophils # 0.3 T/MM3 Lymphocytes # (Manual) 4.7 (1-4.8) T/MM3 Monocytes # (Manual) 0.6 (0-0.8) T/MM3 Eosinophils # (Manual) 0.2 (0-0.5) T/MM3 Basophils # (Manual) 0.1 (0-0.2) T/MM3 RBC Morph Comment Normal Turbidity < 20 (0-20) Sodium 147 H (134-144) MEQ/L Potassium 4.7 (3.6-5) MEQ/L Chloride 104 (98-107) MEQ/L Carbon Dioxide 29 (22-30) MEQ/L Anion Gap 14 (5-15) MEQ/L BUN 28.0 H (7-17) MG/DL Creatinine 0.8 (0.7-1.2) mg/dL GFR Calculation 68 BUN/Creatinine Ratio 35 H (6-26) RATIO Glucose 144 H (65-110) MG/DL Calculated Osmolality 291 H (261-280) MOSM/KG Calcium 10.1 (8.4-10.2) MG/DL Total Bilirubin 0.50 (0.20-1.30) MG/DL Icterus Index < 2 (0-7) AST 20 (14-36) U/L ALT 19 (9-52) U/L Alkaline Phosphatase 127 H (38-126) U/L Total Protein 7.8 (6.3-8.2) g/dL Albumin 4.7 (3.5-5.0) g/dL Globulin 3.1 (2.4-3.6) G/DL Albumin/Globulin Ratio 1.5 (1.1-2.2) RATIO Lipase 96 (23-300) U/L Specimen Hemolysis < 15 (0-25) <Cesar Ulloa Q - 05/19/17 06:36> - Radiology Data Attestation: I reviewed the patient's radiology results. <Cesar Ulloa Q - 05/19/17 06:36> I reviewed the patient's radiology results. <JulyEfrain M - 02/24 04:23> CT scan shows small bowel obstruction <Cesar Ulloa Q - 05/19/17 06:36> Disposition Clinical Impression: Small bowel obstruction <Cesar Ulloa Q - 05/19/17 07:08> Disposition: 02 To [facility] [place] Acute Care <Cesar Ulloa Q - 05/19/17 07:08> Condition: Stable <Cesar Ulloa Q - 05/19/17 07:08> Instructions: <Cesar Ulloa Q - 05/19/17 07:08> Prescriptions: No Action Aspirin [Aspir 81] 81 mg PO DAILY #0 Atorvastatin Calcium 20 mg PO HS #0 Multivitamin [Multi-Day Vitamins] 1 tab PO PRN PRN #0 PRN Reason: when she thinks about taking Albuterol Sulfate 1 vial AEROSOL BID PRN PRN Reason: WHEEZING Cholecalciferol [Vit. D-3] 1 tab PO DAILY Esomeprazole [NEXIUM 20 mg Capsule] 20 mg PO DAILY #0 PEG 3350 17gm PACKET [Miralax] 17 gm PO DAILY <Cesar Ulloa Q - 05/19/17 07:08> Referrals: Milly Gonsalez DO [Family Provider] - <Cesar Ulloa Q - 05/19/17 07:08> Forms: <Cesar Ulloa - 05/19/17 07:08> Time of Disposition: 07:08 <Cesar Ulloa - 05/19/17 07:08> - Seen By: physician <Cesar Ulloa - 05/19/17 07:08>
[2017-05-19] MEDS ORDERED: SALINE FLUSH 10ml SYRINGE ONE (05:06)
[2017-05-19] MEDS ORDERED: IOHEXOL 300mg/ml 75ml INJECTION ONE (05:06)
[2017-05-19] MEDS ORDERED: MORPHINE SULFATE 2mg INJECTION IVP ONE (05:44)
--- NOTE | 2017-05-19 07:38 | CT Scan Report ---
Indication: Abd pain PROCEDURE: CT abdomen pelvis w con: Encounter: Initial Comparison: October 10, 2016 Technique: Axial CT images were performed through the abdomen and pelvis after the administration of intravenous contrast. Coronal and sagittal two-dimensional reformats. Automated Exposure Control and Iterative Reconstruction dose reducing techniques were utilized. Contrast: Omnipaque 300 67 mL Findings: Lung bases are grossly clear. Intrathoracic stomach with fluid distention. Multiple liver cysts. The spleen, pancreas, adrenal glands kidneys are stable. Small left renal stones. Dilated small bowel loops with air-fluid levels, similar to the comparison study with transition somewhere in the deep pelvis. Multiple surgical clips seen in the pelvis. Colon is distended with stool. Bone windows are unchanged. No free air. I do not appreciate the pneumatosis suggested in the colon in the preliminary report. Impression: Recurrent or chronic moderate to high-grade distal small bowel obstruction similar to multiple prior studies. There is a preliminary report by [employer]. .
--- NOTE | 2017-05-19 07:39 | XRay Report ---
Indication: Abd pain PROCEDURE: XR KUB: Encounter: Initial Comparison: CT abdomen and pelvis from the same date Findings: Gas-filled dilated small bowel loops measuring up to 4 cm in the left abdomen. Scattered colonic gas and stool throughout the colon. Lung bases are grossly clear. Intrathoracic stomach. Surgical clips in the pelvis. Impression: Evidence of a moderate small bowel obstruction. .
[2017-05-19] MEDS ORDERED: 1/2 NS 1,000 ML IV SCH (07:45)
--- NOTE | 2017-05-19 07:57 | General Surgery Consult Note ---
Consult date: 05/19/17 Attending Physician: Kayla Greenberg MD Reason for consult: abdominal pain PFSH Migraine Cataracts Asthma Chronic Obstructive Pulmonary Disease (COPD) Sleep Apnea - no CPAP Gastroesophageal Reflux Disease Hiatal Hernia Obstructive Bowel Osteoarthritis Shingles Surgical History: Open cholecystectomy with common bile duct exploration & T- tube 03-22-2015 (Lisa). Right inguinal hernia repair 10-05-2015 (Lisa) . Breast Bx. Incisional hernia with mesh. Sigmoid colon resection for colon cancer . colonoscopy tubular adenoma x1 01-11-2010. Tonsillectomy. Bilateral salpingo-oophorectomy (patient still has uterus). Bilateral cataracts Family History: Family History (Last Updated 04/27/17 @ 10:34 by Kayla Greenberg MD) Maternal Aunt Breast cancer Father Leukemia Brother Cancer of kidney Colon cancer Cancer of gallbladder and extrahepatic bile ducts Sister Alzheimer disease HTN (hypertension) Family History Updates: non contributory at this age - Social History Smoking status: Current every day smoker Packs-years: 63 second hand exposure: No Substance use type: does not use Alcohol intake frequency: does not drink Housing: house Household members: none Current occupational status: retired Does patient use chewing tobacco?: No Current residence: Apartment/Private Home Medications Home Medications Medication Instructions Recorded Confirmed Type Aspirin [Aspir 81] 81 mg PO DAILY #0 01/10/10 05/19/17 History Atorvastatin Calcium 20 mg PO HS #0 06/07/14 05/19/17 History Esomeprazole [NEXIUM 20 mg Capsule] 20 mg PO DAILY #0 01/23/16 05/19/17 History Multivitamin [Multi-Day Vitamins] 1 tab PO PRN PRN #0 01/23/16 05/19/17 History PEG 3350 17gm PACKET [Miralax] 17 gm PO DAILY 09/03/16 05/19/17 History Albuterol Sulfate 1 vial AEROSOL BID PRN 04/27/17 05/19/17 History Cholecalciferol [Vit. D-3] 1 tab PO DAILY 04/27/17 05/19/17 History Allergies Allergy/AdvReac Type Severity Reaction Status Date / Time codeine Allergy Unknown Chest Verified 04/27/17 03:00 Pressure Review of Systems 10-point ROS: negative except for HPI and the following: - Eyes/Ears/Nose/Throat Ear Nose Throat: Present: dentures - Respiratory Respiratory: Present: difficulty breathing (COPD/Asthma), sleep apnea (no c-pap) - Gastrointestinal Gastrointestinal: Present: constipation (BM yesterday) - Musculoskeletal Musculoskeletal: Present: joint pain - Neurological Neurological: Present: muscle weakness - Hematologic/Lymphatic Hematologic/Lymphatic: Present: easy bruising - Vital Signs Last Vital Signs Temp 97.3 F 05/19/17 03:38 Pulse 84 05/19/17 06:15 Resp 20 05/19/17 06:15 BP 136/67 05/19/17 06:00 Pulse Ox 95 05/19/17 06:15 - Laboratory Result Diagrams: 05/19/17 04:17 05/19/17 04:17 Hospital Course Summary Disclaimer: The visit summary below is not to be considered part of the above Progress Note.
[2017-05-19] MEDS ORDERED: BISACODYL 10 MG SUPPOSITORY RECTALLY ONE (08:31)
[2017-05-19] MEDS: 1/2 NS 1,000 ML IV SCH ×2 (08:55→17:41)
--- NOTE | 2017-05-19 09:06 | History & Physical Report ---
History of Present Illness Date: 05/19/17 Chief complaint: abdominal pain HPI: Abiola Chávez is an 82 y/o woman recently discharged from [facility] on 04/29/17 after a 3-day stay for influenza B and acute hypoxia, for which she required temporary oxygen and completed a course of Tamiflu. She had an incomplete course of Rocephin/azithromycin. Since then, her cough has continued to improve. She denies fever/chills, sinus drainage, headaches, weakness, lightheadedness, or sore throat. She reports good oral intake, without nausea, vomiting, diarrhea, or constipation. Her last bowel movement was 2 days ago. She denies seeing any blood. She denies pain with urination or urinary frequency. She denies chest pain, palpitations, SOA, or leg swelling. She even cut back on smoking, down to 2-3 cigarettes per day. She had been doing well, until suddenly in the evening of 05/18/17 while watching TV she developed diffuse abdominal pain that "doubled me over". Her pain lasted "quite a while". She called her niece, and she took Abiola to the ED for evaluation. KUB and CT abdomen/pelvis both indicated SBO. WBC was normal at 10.6, hg stable 14.6. Na was elevated at 147 and she was started on 1/2 NS. Renal function was stable. She received Zofran, fentanyl, and morphine for symptom control. She was made NPO. Staff tried to insert a NGT twice but were unsuccessful and Abiola refused further attempts. Dr. Gonzalez was contacted from the ED, as was Dr. Greenberg. The patient was admitted to inpatient status under the hospitalist service. Review of Systems All systems PM: 10-point ROS was reviewed, no additional remarkable complaints except - Constitutional Constitutional: Absent: chills, fever(s) - EENMT Eyes: Present: requires corrective lenses Balance: Absent: vertigo Nose: Absent: obstruction Mouth/Throat: Absent: sore throat - Cardiovascular Cardiovascular: Absent: chest pain, palpitations Vascular: Absent: pedal edema, unilateral swelling - Respiratory Respiratory: Absent: cough, dyspnea - Gastrointestinal Gastrointestinal: Present: as per HPI - Genitourinary Genitourinary: Absent: dysuria, urinary frequency - Musculoskeletal Musculoskeletal: Absent: back pain, muscle cramps - Integumentary/Breasts Integumentary: Absent: rash - Neurological Neurological: Absent: confusion, dizziness, focal weakness, weakness - Psychiatric Psychiatric: Absent: anxiety - Endocrine Endocrine: Absent: palpitations - Hematologic/Lymphatic Hematologic/Lymphatic: Absent: lymphadenopathy Past Medical History COPD CKD stage II Hyperlipidemia CHIQUITA GERD/HH OA Surgical History: Exploratory laparotomy with lysis of adhesions 10/13/16 ( [facility]). Open cholecystectomy with common bile duct exploration & T-tube (Lisa). Right inguinal hernia repair 10-05-2015 ([facility]). Breast Bx. Incisional hernia with mesh. Sigmoid colon resection for colon cancer . colonoscopy tubular adenoma x1 01-11-2010. Tonsillectomy. Bilateral salpingo-oophorectomy (patient still has uterus). Bilateral cataracts Family History: Family History (Last Updated 04/27/17 @ 10:34 by Kayla Greenberg MD) Maternal Aunt Breast cancer Father Leukemia Brother Cancer of kidney Colon cancer Cancer of gallbladder and extrahepatic bile ducts Sister Alzheimer disease HTN (hypertension) Family History Updates: Her mother of possibly a dental infection when Abiola was only 11 days old. Her sister has since . She grew up with her mother's parents and doesn't know much about her father's history. - Social History Smoking status: Current every day smoker (used to smoke 1/2 ppd, now 2-3 cigs per day) Substance use type: does not use Alcohol intake frequency: does not drink Does patient use chewing tobacco?: No Current residence: Apartment/Private Home Medications Home Medications Medication Instructions Recorded Confirmed Type Aspirin [Aspir 81] 81 mg PO DAILY #0 01/10/10 05/19/17 History Atorvastatin Calcium 20 mg PO HS #0 06/07/14 05/19/17 History Esomeprazole [NEXIUM 20 mg Capsule] 20 mg PO DAILY #0 01/23/16 05/19/17 History Multivitamin [Multi-Day Vitamins] 1 tab PO PRN PRN #0 01/23/16 05/19/17 History PEG 3350 17gm PACKET [Miralax] 17 gm PO DAILY 09/03/16 05/19/17 History Albuterol Sulfate 1 vial AEROSOL BID PRN 04/27/17 05/19/17 History Cholecalciferol [Vit. D-3] 1 tab PO DAILY 04/27/17 05/19/17 History Allergies Allergy/AdvReac Type Severity Reaction Status Date / Time codeine Allergy Unknown Chest Verified 04/27/17 03:00 Pressure Exam Vital Signs: Temperature 96.6 F L 05/19/17 08:31 Pulse Rate 82 05/19/17 08:31 Respiratory Rate 20 05/19/17 08:31 Blood Pressure 153/73 H 05/19/17 08:31 Pulse Oximetry 93 05/19/17 08:31 - Constitutional Present: no acute distress, well nourished, well developed, thin - Routine HEENT Exam Head: Present: normocephalic Eye: Present: PERRL. Absent: conjunctival icterus, scleral injection ENT: Present: mucous membranes moist, oropharynx clear - Routine Neck Exam Present: supple - Routine Respiratory Exam Present: CTA bilaterally - Routine Cardiovascular Exam Present: RRR, S1, S2 - Routine Abdominal Exam Present: soft, non distended, non tender. Absent: normoactive bowel sounds ( hypoactive) - Routine Extremities Exam Present: clubbing, no edema, pulses intact, normal capillary refill - Routine Skin Exam Present: intact, dry, warm - Routine Neurological Exam Present: alert, oriented X3, CN II-XII intact, vision grossly intact, hearing grossly intact, normal speech - Routine Psychiatric Exam Present: normal affect, normal thought process, cooperative Results - Labs CBC & Chem 7: 05/19/17 04:17 05/19/17 04:17 - Imaging and Cardiology CT scan - abdomen Status: image reviewed by me Additional comments: Type of Exam(s): CT abdomen pelvis w con PROCEDURE: CT abdomen pelvis w con: Findings: Lung bases are grossly clear. Intrathoracic stomach with fluid distention. Multiple liver cysts. The spleen, pancreas, adrenal glands kidneys are stable. Small left renal stones. Dilated small bowel loops with air-fluid levels, similar to the comparison study with transition somewhere in the deep pelvis. Multiple surgical clips seen in the pelvis. Colon is distended with stool. Bone windows are unchanged. No free air. I do not appreciate the pneumatosis suggested in the colon in the preliminary report. Impression: Recurrent or chronic moderate to high-grade distal small bowel obstruction similar to multiple prior studies. Assessment and Plan Assessment and Plan: Impression Small bowel obstruction Hypernatremia (POA) COPD CKD stage II Hyperlipidemia CHIQUITA GERD/HH OA Plan Admit, inpatient status under the hospitalist service. Dr. Gonzalez has already been consulted. Attempts to place NGT have been unsuccessful. Diet: NPO. IVF: 1/2 NS for hydration and hypernatremia. Zofran/Morphine PRN. SBO mgt per Dr. Gonzalez. Suppositories ordered per Raciel Garcia APRN. Hold home meds d/t NPO status. Protonix IV. Upon discharge, care to be returned to Dr. Gonsalez. DVT Prophylaxis: SCD's GI Prophylaxis: Protonix Resuscitation Status: Full Code - Physician Narrative Physician: Kayla Greenberg MD Narrative: Date: 05/19/17 Time: 1315 I have independently evaluated and examined this patient. I reviewed the chart, the patient's history, and the COMMUNITY YOUTH SECRETARY/PA's documented findings as above. We discussed and formulated the assessment and plan as above with additions as below: Mrs. Chávez is known from prior admissions. She developed acute abdominal pain overnight without accompanying nausea or vomiting. Her last bowel movement was 2 days ago although she has subsequently had several bowel movements following admission this morning after Dulcolax suppository was administered. Abdominal pain has improved progressively and she continues denied nausea or vomiting. She has no symptoms unrelated to the abdomen on presentation and has had no fever. The patient is alert and appears comfortable, vital signs are unremarkable Abdomen is modestly distended, soft, nontender and bowel sounds are very active. Regular rhythm, anterior/lateral breath sounds are clear CT of the abdomen/pelvis reviewed by myself-large intrathoracic hiatal hernia with increased fluid content, multiple dilated loops of small bowel with air- fluid levels. Radiology reports transition point is in the pelvis. Presenting hemoglobin of 14.6 is up from discharge hemoglobin of 11.[address] Ulloa and Dr. Gonzalez-conservative management of bowel obstruction anticipated with signs of spontaneous resolution now present. Continue fluids and supportive care at present. May be able to initiate clear liquids later today if remains stable. Full code although patient has previously indicated she does not wish to be kept alive on machines in a hopeless situation. Hospital Course Summary Disclaimer: The visit summary below is not to be considered part of the above Progress Note. Hospital Course: 05/19 Admit, inpatient status under the hospitalist service. Dr. Gonzalez has already been consulted. Attempts to place NGT have been unsuccessful. Diet: NPO. IVF: 1/2 NS for hydration and hypernatremia. Zofran/Morphine PRN. SBO mgt per Dr. Gonzalez. Suppositories ordered per Raciel Garcia, GABI. Hold home meds d/t NPO status. Protonix IV.
[2017-05-19 09:22] VITALS: BMI 19.8
[2017-05-19] MEDS ORDERED: MORPHINE SULFATE 2mg INJECTION IVP PRN (09:28)
[2017-05-19] MEDS ORDERED: ONDANSETRON 4 MG/2 ML INJECTION IVP PRN (09:28)
[2017-05-19] MEDS ORDERED: NICOTINE 7 MG PATCH TD PRN (09:29)
[2017-05-19] MEDS ORDERED: ALBUTEROL/IPRATROPIUM 2.5mg-0.5mg/3ml NEB AEROSOL PRN (09:29)
[2017-05-19] MEDS: PANTOPRAZOLE 40 MG INJECTION IVP SCH (10:26)
[2017-05-19] MEDS ORDERED: DIATRIZOATE MEGLUMINE/SOD. (66%/10%) 120ml SOLN ONE (13:37)
--- NOTE | 2017-05-19 16:11 | XRay Report ---
Indication: R/O SBO PROCEDURE: XR small bowel follow through: Encounter: Initial Comparison: KUB from early today Findings: Key Sander radiograph again demonstrates small bowel distention which appears slightly improved from the exam earlier this morning. There is diffuse colonic gas present. Water-soluble Gastrografin contrast was administered orally followed by serial abdominal radiographs. Contrast traverses the stomach and proximal small bowel rapidly reaching the cecum and right colon by 1 hour after administration and reaching the rectum by 2 hours after administration. Impression: Normal intestinal transit time. .
--- NOTE | 2017-05-19 17:44 | Consultation ---
DATE OF SERVICE 05/19/2017 FINDINGS Mrs. Chávez is an 82-year-old female who is known to my surgical practice. I was asked to see the patient today as a result of her misfortune of developing a recurrent high-grade small-bowel obstruction. Mrs. Chávez is known to my surgical practice and I had operated on the patient as a result of a small- bowel obstruction in October of last year. She did undergo an extensive adhesiolysis. Her postoperative course was somewhat prolonged as a result of a wound complication. The patient states that she has been doing quite well, however, from October of last year until last evening. Patient states that she had a "normal Friday" during the day yesterday but last evening had developed severe abdominal pain. Patient described the pain as being throughout her entire abdomen. The patient states the pain was very severe in nature and had "doubled her over." Patient states that she "knew there was something wrong" and she therefore contacted her niece who brought her in to [facility] for [facility] evaluation. Radiographically, the patient was found to have evidence for bowel obstruction and she was subsequently admitted. This morning when I did see the patient she informed me that her abdominal pain had markedly improved. She states that she did have a small bowel movement earlier today. The patient denied any specific aggravating or alleviating symptomatology in regard to her recent bout of abdominal pain when questioned. PAST MEDICAL HISTORY, PAST SURGICAL HISTORY, MEDICATIONS, ALLERGIES, SOCIAL HISTORY, FAMILY HISTORY, REVIEW OF SYSTEMS Performed by my nurse practitioner, Raciel Garcia APRN. PHYSICAL EXAMINATION GENERAL: Mrs. Chávez is an 82-year-old female who when seen later this morning/ early afternoon did not appear to be in acute distress, as stated above. She states that her abdominal pain had resolved. VITAL SIGNS: Temperature 96.6, pulse 82, respirations 20, blood pressure 153/73 , SAO2 93% on room air. HEENT: Normocephalic. Pupils are equally round and react to light and accommodation. NECK: Supple without lymphadenopathy. CHEST: Clear to auscultation bilaterally. HEART: Regular rate and rhythm. Normal S1 and S2 without gallops, murmurs or clicks. ABDOMEN: Palpation of the abdomen reveals it to be soft and nontender. I do not appreciate any evidence for hepatosplenomegaly nor abnormal masses. EXTREMITIES: Without clubbing, cyanosis, or edema. NEURO: Cranial nerves II-XII grossly intact. Patient is without focal motor or sensory deficits. ABDOMEN: Visualization of the abdomen does reveal it to be fairly scaphoid in nature. She does have a prior surgical incision along the midline location consistent with her prior surgical history. Palpation of the abdomen revealed it to be soft and completely nontender. No evidence of hepatosplenomegaly or other abnormal masses. LABORATORY/RADIOGRAPHIC EVALUATION The patient had a CBC earlier this morning when she had presented and her white count was normal at 10.6. Hemoglobin was normal at 14.6. CMP was obtained and she was found to have some electrolyte abnormalities. Sodium was elevated at 147. BUN was elevated a5 28.0. Glucose was minimally elevated at 144. Alkaline phosphatase was slightly elevated at 127. Patient had undergone a KUB and upright earlier today as well as a CT scan of her abdomen and pelvis. Plain x-ray revealed evidence for a moderate small- bowel obstruction. CT scan revealed numerous dilated loops of small bowel with findings consistent with that of recurrent or chronic ldaevabn-hw-pioz-grade distal small-bowel obstruction similar to prior studies. There was felt to be a transition zone somewhere deep within the pelvis. ASSESSMENT 82-year-old female with recurrent small-bowel obstruction which does appear to have resolved clinically. PLAN Given the fact that her abdominal pain had resolved and she began to have a bowel movement earlier today it was my recommendation that we go ahead and obtain a Gastrografin small bowel follow-through. Hopefully the contrast will progress through her small bowel and into her colon without difficulty. Patient at this time does not appear to have an acute surgical abdomen. Will continue to follow the patient with serial abdominal examinations and await her upcoming radiographic results as discussed above. [facility]
[2017-05-20] MEDS: 1/2 NS 1,000 ML IV SCH ×2 (01:53→09:44)
[2017-05-20 07:10] VITALS: BP 152/81; PULSE 78; RESP 18; TEMP 97; O2SAT 90
[2017-05-20] MEDS: PANTOPRAZOLE 40 MG INJECTION IVP SCH (08:05)
[2017-05-20] MEDS ORDERED: NICOTINE PATCH REMOVAL TD SCH (09:00)
--- NOTE | 2017-05-20 09:10 | General Surgery Progress Note ---
Subjective Patient reports: feels better (thinks she wants to go home today), tolerating a regular diet, voiding w/o difficulty, bowel movement (multile stools, contrast from SBFT went through quickly and into colon in 1 hour and reached rectum by 2 hours.), diarrhea ("has slowed down") - Vital Signs Last Vital Signs Temp 97.0 F 05/20/17 07:09 Pulse 78 05/20/17 07:09 Resp 18 05/20/17 07:09 BP 152/81 H 05/20/17 07:09 Pulse Ox 90 05/20/17 07:09 - Laboratory Result Diagrams: 05/20/17 04:23 05/20/17 04:23 - Radiology Small bowel follow through Findings: Insulation Hoseman radiograph again demonstrates small bowel distention which appears slightly improved from the exam earlier this morning. There is diffuse colonic gas present. Water-soluble Gastrografin contrast was administered orally followed by serial abdominal radiographs. Contrast traverses the stomach and proximal small bowel rapidly reaching the cecum and right colon by 1 hour after administration and reaching the rectum by 2 hours after administration. Impression: Normal intestinal transit time. - Normal Exam General: awake, alert, oriented, no acute distress Cardiovascular: regular rate Respiratory: clear bilaterally, no labored breathing Abdominal: BS normo active x4, soft, non-tender Psychiatric: normal affect Neurological: CN 2-12 grossly intact Assessment and Plan (1) History of small bowel obstruction Current Visit: Yes Status: Acute Plan: SBFT with Gastrografin yesterday ruled out bowel obstruction. She is tolerating regular diet. She will not need surgical intervention at this time. Hospital Course Summary Disclaimer: The visit summary below is not to be considered part of the above Progress Note. Hospital Course: 05/19 Admit, inpatient status under the hospitalist service. Dr. Gonzalez has already been consulted. Attempts to place NGT have been unsuccessful. Diet: NPO. IVF: 1/2 NS for hydration and hypernatremia. Zofran/Morphine PRN. SBO mgt per Dr. Gonzalez. Suppositories ordered per Raciel Garcia, RECEIVING TELLER. Hold home meds d/t NPO status. Protonix IV.
--- NOTE | 2017-05-20 13:57 | Discharge Summary ---
Discharge Information Date of admission: 05/19/17 07:05 Anticipated date of discharge: 05/20/17 Attending Physician: Kayla Greenberg MD Primary care physician: Milly Gonsalez DO Consults: Vince Gonzalez MD - Discharge Diagnosis (1) Small bowel obstruction Status: Resolved Small bowel obstruction, recurrent Hypernatremia, resolved Dehydration, resolved COPD CKD stage II Hyperlipidemia CHIQUITA GERD/HH OA - Laboratory Labs: On admission Hbg 14.6 and Na 147 05/20/17 04:23 05/20/17 04:23 - Microbiology none - Radiology Radiology: CT abd and pelvis w contrast on 05/19/17: Lung bases are grossly clear. Intrathoracic stomach with fluid distention. Multiple liver cysts. The spleen, pancreas, adrenal glands kidneys are stable. Small left renal stones. Dilated small bowel loops with air-fluid levels, similar to the comparison study with transition somewhere in the deep pelvis. Multiple surgical clips seen in the pelvis. Colon is distended with stool. Bone windows are unchanged. No free air. I do not appreciate the pneumatosis suggested in the colon in the preliminary report. Impression: Recurrent or chronic moderate to high-grade distal small bowel obstruction similar to multiple prior studies. ----- KUB on 05/19/17: Gas-filled dilated small bowel loops measuring up to 4 cm in the left abdomen. Scattered colonic gas and stool throughout the colon. Lung bases are grossly clear. Intrathoracic stomach. Surgical clips in the pelvis. Impression: Evidence of a moderate small bowel obstruction. ----- Gastrograffin UGI and Small Bowel follow-through study on 05/19/17: Pan Washer radiograph again demonstrates small bowel distention which appears slightly improved from the exam earlier this morning. There is diffuse colonic gas present. Water-soluble Gastrografin contrast was administered orally followed by serial abdominal radiographs. Contrast traverses the stomach and proximal small bowel rapidly reaching the cecum and right colon by 1 hour after administration and reaching the rectum by 2 hours after administration. Impression: Normal intestinal transit time. History of Present Illness HPI: Abiola Chávez is an 82 y/o woman recently discharged from [facility] on 04/29/17 after a 3-day stay for influenza B and acute hypoxia, for which she required temporary oxygen and completed a course of Tamiflu. She had an incomplete course of Rocephin/azithromycin. Since then, her cough has continued to improve. She denies fever/chills, sinus drainage, headaches, weakness, lightheadedness, or sore throat. She reports good oral intake, without nausea, vomiting, diarrhea, or constipation. Her last bowel movement was 2 days ago. She denies seeing any blood. She denies pain with urination or urinary frequency. She denies chest pain, palpitations, SOA, or leg swelling. She even cut back on smoking, down to 2-3 cigarettes per day. She had been doing well, until suddenly in the evening of 05/18/17 while watching TV she developed diffuse abdominal pain that "doubled me over". Her pain lasted "quite a while". She called her niece, and she took Abiola to the ED for evaluation. KUB and CT abdomen/pelvis both indicated SBO. WBC was normal at 10.6, hg stable 14.6. Na was elevated at 147 and she was started on 1/2 NS. Renal function was stable. She received Zofran, fentanyl, and morphine for symptom control. She was made NPO. Staff tried to insert a NGT twice but were unsuccessful and Abiola refused further attempts. Dr. Gonazlez was contacted from the ED, as was Dr. Greenberg. The patient was admitted to inpatient status under the hospitalist service. Objective Vital signs: Temperature 97.0 F 05/20/17 07:09 Pulse Rate 78 05/20/17 07:09 Respiratory Rate 18 05/20/17 07:09 Blood Pressure 152/81 H 05/20/17 07:09 Pulse Oximetry 90 - RA 05/20/17 07:09 NAD, alert Resp non-labored, breath sounds clear, no wheezing present RRR,S1 S2 Abd soft, minimally distended, non-tender, active bowel sounds Height/Weight/BMI: Height 1.52 m Weight 46.8 kg Body Mass Index 19.8 Hospital Course This is a general summary of the patient's hospital course. For more details refer to the complete medical record. Hospital course: Mrs. Chávez was admitted with clinical and radiographic findings consistent with SBO. Dr. Gonzalez was consulted. She was treated conservatively with 1/ 2 NS for hydration and hypernatremia and Zofran/Morphine PRN for symptom management. She reported resolution of abdominal pain shortly after admission and had several bowel movements after a dulcolax suppository. She subsequently underwent UGI-SBFT with gastrografin demonstrating normal intestinal transit time and resulting in multiple bowel movements. Diet was resumed the evening of admission and advanced to a regular diet on the morning of 05/20 with good tolerance. On 05/20 Mrs. Chávez reported that she felt well with complete resolution of abdominal pain and no nausea or vomiting overnight; she denied and respiratory concerns. She ambulated in the halls without difficulty and tolerated breakfast and lunch well. She was stable for discharge home with resumption of usual home medications. Home health was resumed with assistance of case management. Hypernatremia resolved with hydration and hemaglobin dropped to baseline value ( 12.6 in April) after administration of IVF c/w hemoconcentration/dehydration on admission. Patient is asked to f/u with Dr. Gonsalez in 1-2 weeks for reassessment. Time spent with patient: discharge greater than 30 minutes Resuscitation Status: Full Code Discharge Plan - Discharge Disposition Discharge Date: 05/20/17 Disposition: [facility] Health Service *Condition: Stable Reason For Visit (Visit label in EMR): small bowel obstruction - Discharge Medications *Discharge Medications: Continue Aspirin [Aspir 81] 81 mg PO DAILY #0 Atorvastatin Calcium 20 mg PO HS #0 Multivitamin [Multi-Day Vitamins] 1 tab PO PRN PRN #0 PRN Reason: when she thinks about taking Albuterol Sulfate 1 vial AEROSOL BID PRN PRN Reason: WHEEZING Cholecalciferol [Vit. D-3] 1 tab PO DAILY Esomeprazole [NEXIUM 20 mg Capsule] 20 mg PO DAILY #0 PEG 3350 17gm PACKET [Miralax] 17 gm PO DAILY - Discharge Packet/Instructions *Diet: regular *Activity: as tolerates *Pain Management/Treatment: tylenol per package directions if needed *Wound Care: not applicable *Expected Signs/Symptoms: no new symptoms expected *Notify Physician if: recurrent abdominal pain, nausea/vomiting, or constipation *During Business Hours Contact: Dr. Gonsalez or Dr. Gonzalez *After Business Hours Contact: On-call MD can be paged through [facility] at [phone] *Pending Lab/Results: No Pending Lab - Referrals/Follow Up *Referrals/Follow Up: Milly Gonsalez DO [Family Provider] - (1-2 weeks) - Patient Handouts Patient Handouts: Bowel Obstruction (DC) - Dismissal Complete Discharge Instructions are:: Complete Physician Narrative - Narrative Attestation Narrative: Date: 05/20/17 Time: 5124
--- NOTE | 2017-05-20 14:37 | Progress Note ---
DATE OF SERVICE 05/20/2017 FINDINGS Abiola was seen earlier this morning on rounds. She denied any element abdominal pain. She is tolerating a regular diet. PHYSICAL EXAM VITAL SIGNS: Afebrile, normotensive. CHEST: Clear to auscultation bilaterally. HEART: Regular rate and rhythm. Normal S1 and S2 without gallops, murmurs or clicks. ABDOMEN: Palpation of the abdomen today reveals it to be soft and completely nontender. No evidence for guarding or rebound. LABORATORY/RADIOGRAPHIC EVALUATION Yesterday the patient's small bowel series was normal and contrast did progress through the small bowel and into her colon in a normal fashion. Therefore, I advanced her diet as tolerated. From a laboratory standpoint today, the patient had a CBC that was unremarkable. White count was 7.5. Hemoglobin was slightly down at 11.9 which most likely is dilutional in nature. ASSESSMENT An 82-year-old female with high-grade small-bowel obstruction that has resolved on its own behalf. Patient doing well from a clinical standpoint. PLAN Patient's IV fluids were hep-locked this morning. I do believe that she could likely be discharged this afternoon if stable from a medical standpoint. I informed the patient that she does not need to see me back in the office unless there are concerns. I informed the patient that unfortunately she may intermittently at times have these episodes of recurrent partial small-bowel obstructions given her history for significant adhesions in the past. POLINA
== END 2017-05-20 13:15 | disposition home health service (06) | DRG 389 ==
LOC: ED 03:33 → SRG 07:05
PROVIDERS: ADMIT Internal Medicine; ATTEND Internal Medicine

== ENCOUNTER 2017-05-23 00:26 | Inpatient (IN) ==
[2017-05-23] MEDS ORDERED: SALINE FLUSH 10ml SYRINGE IVF PRN (02:44)
[2017-05-23] MEDS ORDERED: ONDANSETRON 4 MG/2 ML INJECTION IVP ONE (02:45)
[2017-05-23] MEDS ORDERED: NS 1,000 ML IV SCH ×2 (02:45→03:45)
--- NOTE | 2017-05-23 02:45 | Emergency Department Report ---
Abdominal Pain HPI - General Chief Complaint: Abdominal Pain Stated Complaint: abd pain Time Seen by Provider: 05/23/17 00:52 Source: patient, family, RN notes reviewed, old records reviewed Mode of arrival: ambulatory Limitations: no limitations - History of Present Illness HPI narrative: 82yo woman presents to the ER for evaluation of abdominal pain. Pt is well- known to this ER; has had numerous episodes of SBO in the past 2/2 numerous abdominal surgeries. She is a pt of Dr. Gonzalez. Since being discharged 3 days ago for SBO, pt has not had much to eat. Has been taking her miralax since d/c with minimal output. Today, pt developed severe abdominal pain, similar to prior SBO episodes. Presents tonight for treatment. MD complaint: abdominal pain Onset (ago): hour(s) Consistency: constant Location: diffuse Severity: similar to previous episodes Quality: cramping, stabbing, aching Radiation: none Migration to: no migration Exacerbating factors: eating, movement Context: history of similar episodes Associated symptoms: nausea - Related Data Home Medications Medication Instructions Recorded Confirmed Aspirin [Aspir 81] 81 mg PO DAILY #0 01/10/10 05/23/17 Atorvastatin Calcium 20 mg PO HS #0 06/07/14 05/23/17 Esomeprazole [NEXIUM 20 mg Capsule] 20 mg PO DAILY #0 01/23/16 05/23/17 Multivitamin [Multi-Day Vitamins] 1 tab PO PRN PRN #0 01/23/16 05/23/17 PEG 3350 17gm PACKET [Miralax] 17 gm PO DAILY 09/03/16 05/23/17 Albuterol Sulfate 1 vial AEROSOL BID PRN 04/27/17 05/23/17 Cholecalciferol [Vit. D-3] 1 tab PO DAILY 04/27/17 05/23/17 Allergies Allergy/AdvReac Type Severity Reaction Status Date / Time codeine Allergy Unknown Chest Verified 05/23/17 00:50 Pressure Review of Systems All systems: reviewed and negative except as stated Gastrointestinal: Reports: as per HPI, abdominal pain, nausea, vomiting PFSH Patient Stated Medical History Migraine Yes Cataracts Yes: bilat Other HEENT Yes: TMJ Asthma Yes Bronchitis Yes Chronic Obstructive Pulmonary Yes Disease (COPD) Pneumonia Yes Sleep Apnea Yes: no CPAP Other Respiratory INFLUENZA MULTIPLE TIMES, INSOMNIA Gastroesophageal Reflux Yes Disease Hiatal Hernia Yes Obstructive Bowel Yes Other GI Yes: CONSTIPATION Hx Urinary Tract Infection Yes Anemia Yes Osteoarthritis Yes: Spine and hands Other Musculoskeletal Yes: arthritis Cellulitis Yes Shingles Yes Surgical History: Exploratory laparotomy with lysis of adhesions 10/13/16 ( [facility]). Open cholecystectomy with common bile duct exploration & T-tube ([facility]). Right inguinal hernia repair 10-05-2015 ([facility]). Breast Bx. Incisional hernia with mesh. Sigmoid colon resection for colon cancer . colonoscopy tubular adenoma x1 01-11-2010. Tonsillectomy. Bilateral salpingo-oophorectomy (patient still has uterus). Bilateral cataracts Family History: Family History (Last Updated 04/27/17 @ 10:34 by Kayla Greenberg MD) Maternal Aunt Breast cancer Father Leukemia Brother Cancer of kidney Colon cancer Cancer of gallbladder and extrahepatic bile ducts Sister Alzheimer disease HTN (hypertension) Family History Updates: Her mother of possibly a dental infection when Abiola was only 11 days old. Her sister has since . She grew up with her mother's parents and doesn't know much about her father's history. - Social History Smoking status: Current every day smoker Packs-years: 65 second hand exposure: No Substance use type: does not use Alcohol intake frequency: does not drink Housing: house Household members: none Current occupational status: retired Does patient use chewing tobacco?: No Current residence: Apartment/Private Home Physical Exam - Limitations Limitations: no limitations - General General appearance: alert, in no apparent distress, cachectic - Normal Exams: Head:: Normocephalic without trauma Eyes:: Pupils are PERRLA w/ EOMI, No scleral icterus, irritation, or foreign bodies noted ENMT:: No facial trauma, nasal exudates, pharyngeal erythema, or exudates are noted Neck:: Full range of motion, without adenopathy Lymphatic:: No lymphadenopathy Musculoskeletal:: No tenderness, or deformity noted Integumentary:: No rashes, hives, or bruising noted Neurological:: Patient is alert, and oriented Psychiatric:: Patient exhibits, appropriate attention - Respiratory Respiratory exam: Present: normal lung sounds bilaterally, wheezes (Throughout) . Absent: respiratory distress, stridor, prolonged expiratory phase, crackles - Cardiovascular Cardiovascular exam: Present: regular rate, normal rhythm, normal heart sounds - Abdominal Exam Abdominal exam: Present: soft, tenderness, hyperactive bowel sounds. Absent: distention, guarding, rebound, rigidity Abdominal tenderness: Present: diffuse Course - Consultations Consultation #1: Luis Telemed: Will admit for observation. Time: 02:46 Vital Signs Temperature 97.9 F 05/23/17 00:42 Pulse Rate 100 05/23/17 00:42 Respiratory Rate 20 05/23/17 00:42 Blood Pressure 138/73 05/23/17 00:42 Pulse Oximetry 92 05/23/17 00:42 Temperature 97.9 F 05/23/17 00:42 Pulse Rate 96 05/23/17 01:58 Respiratory Rate 18 05/23/17 01:58 Blood Pressure 114/71 05/23/17 01:53 Pulse Oximetry 88 L 05/23/17 01:58 Abdominal Pain - MDM Narrative Medical decision making narrative: Pt with recurrent SBO. - Differential Diagnosis Differential diagnosis: Likely: abdominal pain, constipation, diverticulitis, gastroenteritis, small bowel obstruction - Medical Records Attestation: I reviewed the patient's medical records. - Lab Data Attestation: I reviewed the patient's lab results. Result diagrams: 05/23/17 01:10 05/23/17 01:10 Lab Results 05/23/17 05/23/17 Range/Units 01:10 01:10 WBC 8.4 (4.5-11.0) T/MM3 RBC 4.66 (4.00-5.20) M/MM3 Hgb 14.2 D (12-16) GM/DL Hct 44.6 D (36-46) % MCV 95.7 (80-100) UM3 MCH 30.5 (26-34) UUG MCHC 31.8 (31-37) GM/DL RDW Std Deviation 55.3 H (36.9-50.2) FL Plt Count 164 (130-400) T/MM3 MPV 11.5 (9.4-12.4) UM3 Turbidity < 20 (0-20) Sodium 146 H (134-144) MEQ/L Potassium 4.1 (3.6-5) MEQ/L Chloride 103 (98-107) MEQ/L Carbon Dioxide 30 (22-30) MEQ/L Anion Gap 13 (5-15) MEQ/L BUN 24.0 H (7-17) MG/DL Creatinine 0.9 D (0.7-1.2) mg/dL GFR Calculation 60 BUN/Creatinine Ratio 27 H (6-26) RATIO Glucose 118 H (65-110) MG/DL Calculated Osmolality 286 H (261-280) MOSM/KG Calcium 10.3 H D (8.4-10.2) MG/DL Icterus Index < 2 (0-7) Specimen Hemolysis < 15 (0-25) - Radiology Data Attestation: I reviewed the patient's radiology results. CT Abd: IMPRESSION: Findings compatible with a distal small bowel obstruction. Transition point is not clearly identified but likely is within the distal small bowel. No pneumatosis or free air. Constipation Moderate hiatal hernia Bibasilar lung opacities likely atelectasis and/or infiltrate combination. 3 mm subpleural left lung base nodule. ACR White Paper guidelines (Ed, et al. Radiology 2017; 284(1):228-43) suggest the following. For low-risk patients, no follow-up is necessary. For high-risk patients (smoking history or other known risk factors) an optional chest CT at 12 months could be performed. Nonobstructing left renal calculus. Exophytic nodule of the left kidney not compatible with a simple cyst. Nonemergent ultrasound would be helpful to assess for cystic or solid characteristics if prior studies are not available to assess for long-term stability Disposition Clinical Impression: Small bowel obstruction Constipation Qualifiers: Constipation type: unspecified constipation type Qualified Code(s): K59.00 - Constipation, unspecified Disposition: 02 To [facility] Print Language: Iraqi Condition: Improved Prescriptions: No Action Aspirin [Aspir 81] 81 mg PO DAILY #0 Atorvastatin Calcium 20 mg PO HS #0 Multivitamin [Multi-Day Vitamins] 1 tab PO PRN PRN #0 PRN Reason: when she thinks about taking Albuterol Sulfate 1 vial AEROSOL BID PRN PRN Reason: WHEEZING Cholecalciferol [Vit. D-3] 1 tab PO DAILY Esomeprazole [NEXIUM 20 mg Capsule] 20 mg PO DAILY #0 PEG 3350 17gm PACKET [Miralax] 17 gm PO DAILY Referrals: Milly Gonsalez DO [Family Provider] - Time of Disposition: 02:51 - Seen By: physician
[2017-05-23] MEDS ORDERED: ONDANSETRON 4 MG/2 ML INJECTION IVP PRN (03:45)
--- NOTE | 2017-05-23 04:12 | History & Physical Report ---
History of Present Illness Date: 05/23/17 Chief complaint: Abdominal pain HPI: Ms. Chávez is an 82 year old female who has presented to the emergency department this evening with reports of abdominal pain. She was just discharged 3 days ago after a 3 day inpatient stay for small bowel obstruction. This obstruction spontaneously resolved. She went home, has been taking Miralax but has not had a significant bowel movement since her discharge. She returns tonight with worsening abdominal pain. A CT scan of the abdomen demonstrates a small bowel obstruction recurrence according to the ER physicians report. She has been given IV fluids and zofran and is feeling better at this time. No NG tube was placed. At the request of the ER provider, this patient will be placed in the hospital tonight for further evaluation and treatment of presenting issues. Please note this patient encounter was performed via the use of telemedicine technology Review of Systems All systems PM: 10-point ROS was reviewed, no additional remarkable complaints except Past Medical History Patient Stated Medical History Migraine Yes Cataracts Yes: bilat Other HEENT Yes: TMJ Asthma Yes Bronchitis Yes Chronic Obstructive Pulmonary Yes Disease (COPD) Pneumonia Yes Sleep Apnea Yes: no CPAP Other Respiratory INFLUENZA MULTIPLE TIMES, INSOMNIA Gastroesophageal Reflux Yes Disease Hiatal Hernia Yes Obstructive Bowel Yes Other GI Yes: CONSTIPATION Hx Urinary Tract Infection Yes Anemia Yes Osteoarthritis Yes: Spine and hands and knees Other Musculoskeletal Yes: arthritis Cellulitis Yes Shingles Yes Surgical History: Exploratory laparotomy with lysis of adhesions 10/13/16 ( [facility]). Open cholecystectomy with common bile duct exploration & T-tube ([facility]). Right inguinal hernia repair 10-05-2015 ([facility]). Breast Bx. Incisional hernia with mesh. Sigmoid colon resection for colon cancer . colonoscopy tubular adenoma x1 01-11-2010. Tonsillectomy. Bilateral salpingo-oophorectomy (patient still has uterus). Bilateral cataracts Family History: Family History (Last Updated 04/27/17 @ 10:34 by Kayla Greenberg MD) Maternal Aunt Breast cancer Father Leukemia Brother Cancer of kidney Colon cancer Cancer of gallbladder and extrahepatic bile ducts Sister Alzheimer disease HTN (hypertension) Family History Updates: . - Social History Smoking status: Current every day smoker Medications Home Medications Medication Instructions Recorded Confirmed Type Aspirin [Aspir 81] 81 mg PO DAILY #0 01/10/10 05/23/17 History Atorvastatin Calcium 20 mg PO HS #0 06/07/14 05/23/17 History Esomeprazole [NEXIUM 20 mg Capsule] 20 mg PO DAILY #0 01/23/16 05/23/17 History Multivitamin [Multi-Day Vitamins] 1 tab PO PRN PRN #0 01/23/16 05/23/17 History PEG 3350 17gm PACKET [Miralax] 17 gm PO DAILY 09/03/16 05/23/17 History Albuterol Sulfate 1 vial AEROSOL BID PRN 04/27/17 05/23/17 History Cholecalciferol [Vit. D-3] 1 tab PO DAILY 04/27/17 05/23/17 History Allergies Allergy/AdvReac Type Severity Reaction Status Date / Time codeine Allergy Unknown Chest Verified 05/23/17 00:50 Pressure Exam Vital Signs: Temperature 97.1 F 05/23/17 03:44 Pulse Rate 86 05/23/17 03:44 Respiratory Rate 14 05/23/17 02:39 Blood Pressure 122/67 05/23/17 03:44 Pulse Oximetry 97 05/23/17 03:44 Height/Weight/BMI: Height 1.52 m Weight 45.5 kg Body Mass Index 19.5 - Constitutional Present: no acute distress - Routine HEENT Exam Head: Present: normocephalic, atraumatic ENT: Present: mucous membranes dry - Routine Respiratory Exam Present: CTA bilaterally. Absent: accessory muscle use - Routine Cardiovascular Exam Present: RRR, no murmur - Routine Abdominal Exam Present: soft, normoactive bowel sounds - Routine Extremities Exam Present: no edema - Routine Skin Exam Present: intact. Absent: rash - Routine Neurological Exam Present: alert Results - Labs CBC & Chem 7: 05/23/17 01:10 05/23/17 01:10 Assessment and Plan (1) Small bowel obstruction Current visit: No Status: Acute Assessment and Plan: Assessment Recurrent small bowel obstruction Mild dehydration COPD HLD CHIQUITA Plan This patient will be placed under full admission status to the medical floor. Keep NPO, provide IV fluids and supportive symptomatic care. No NG tube at this time, but will order if she begins to develop severe nausea and/or vomiting. Later this morning, surgery will need to be consulted for co-management. I have reviewed the provided list of home medications. Home medications will be held in light of her NPO status. Clinical progress will be monitored, and supportive care will be provided. Changes to the aforementioned plan will be made this evening as necessary. Vikram ASSESSMENT Recurrent distal small bowel obstruction Abdominal pain secondary to SBO Nausea secondary to SBO Hypernatremia (POA) Dehydration COPD CHIQUITA Tobacco dependency GERD HDL Stage III CKD OA Plan Patient placed in inpatient admission status for evaluation and treatment of SBO. NPO for bowel rest secondary to SBO. Hold home medications secondary to NPO. IVF initiated for hydration - initially on NS at 100cc/hr, with hypernatremia will change to 1/2 NS and decrease rate to 75cc/hr. Consult with Dr Gonzalez for surgical evaluation of SBO. Nursing to ambulate to help bowel function and maintain strength. SCD for DVT prevention. Will add Protonix IV secondary to her underlying GERD. RT for tobacco cessation. Ful code as per her requests. Care to return to Dr Gonsalez at time of discharge from [place] DVT Prophylaxis: SCD's Resuscitation Status: Full Code - Physician Narrative Physician: Andrew Sue MD Narrative: Date: 05/23/17 Time: 1100 Have independently interviewed and examined pt. Chart reviewed. Reviewed above not and concur. CC: AB pain HPI: 82 y/o female with Hx colon Ca (resection in 1979) and multiple abdominal surgeries presents to ED secondary to severe ab pain. [place] [facility] with distal small bowel obstruction. At that time CT showed SBO, KUB showing SBO. Did have small bowel follow through during hospitalization showing normal intestinal transit time. Discharged to home with Miralax to help promote bowel regularity. Since home, appetite has been doing OK. Feel Mirlax has been helping bowel function. Evening of the , did develop severe ab pain-diffuse, constant in a cramping/stabbing/aching sensation. Noted nausea with pain-felt like needed to vomit, but couldn't. Pain would increase with movements and eating. Very similar feeling to prior SBO events. When asked her last bowel movement was, reports had stool in ED -- not runny, but 'normal.' CT obtained in ED showing evidence of distal SBO, not able to identify transition point. Placed in inpatient admission for further evaluation and treatment of her SBO. Overall, feels she has been making gains since Apr (hospitalized with influenza) . Breathing at baseline - uses neb treatments if SOA. Not having increasing cough or congestion. No f/c. Strength improving. Has home health. Urinating well. No cv symptoms. No neurological changes. PMHx: COPD, CHIQUITA, Tobacco dependency, HDL, Stage III CKD, GERD/HH, OA, Hx colon CA PSxHx: Exploratory lab with lysis of adhesion 10/24, Open [facility] 03/25, R inginal hernia repain 09/22, Breast bx, Sigmoid colon resection with resection of Ca , Colonoscopy with tubular adenoma x1 01/17, BSO (still with uterus), B cataract removal ALL: Codeine MEDS: see MAR SHx: Resides independently. Smokes. No ETOH. Has HH. Dr Gonsalez PCP. FHx: Mother had kidney Ca, colon Ca, and Ca of GB and extra-biliary ducts. M Aunt-breast Ca. Sister-HTN, Alzheimer's ROS: as in HPI. Remainder of 10 point ROS discussed with pt and neg. Exam GEN: [id number] awake and alert. Appears comfortable HEENT: NC/AT PERRLA EOMI MMM Neck: Supple, trachea midline Lungs: decrease bilaterally. No crackles, wheezes, or distress CV: regular rate and rhythm Ab: soft flat nondistended. Not appreciating tenderness or palpation. No rebound or guarding. BS decreased, but present EXT: no c/c/e Skin: warm and dry Neuro: CN II-XII intact. No focal motor deficits Psych: awake alert appropriate. Thoughts linear. Converses well. MS: normal muscle strength and tone of upper and lower ext bilaterally ASSESSMENT Recurrent distal small bowel obstruction Abdominal pain secondary to SBO Nausea secondary to SBO Hypernatremia (POA) Dehydration COPD CHIQUITA Tobacco dependency GERD HDL Stage III CKD OA Plan Patient placed in inpatient admission status for evaluation and treatment of SBO. NPO for bowel rest secondary to SBO. IVF initiated for hydration - initially on NS at 100cc/hr, with hypernatremia will change to 1/2 NS and decrease rate to 75cc/hr. Consult with Dr Gonzalez for surgical evaluation of SBO. Nursing to ambulate to help bowel function and maintain strength. SCD for DVT prevention. Will add Protonix IV secondary to her underlying GERD. RT for tobacco cessation. Ful code as per her requests. Care to return to Dr Gonsalez at time of discharge [place] [facility] Hospital Course Summary Disclaimer: The visit summary below is not to be considered part of the above Progress Note. Hospital Course: 05/23/17 Patient placed in inpatient admission status for evaluation and treatment of SBO. NPO for bowel rest secondary to SBO. Hold home medications secondary to NPO. IVF initiated for hydration - initially on NS at 100cc/hr, with hypernatremia will change to 1/2 NS and decrease rate to 75cc/hr. Consult with Dr Gonzalez for surgical evaluation of SBO. Nursing to ambulate to help bowel function and maintain strength. SCD for DVT prevention. Will add Protonix IV secondary to her underlying GERD. RT for tobacco cessation. Ful code as per her requests. Care to return to Dr Gonsalez at time of discharge from [facility]
--- NOTE | 2017-05-23 07:58 | CT Scan Report ---
Indication: abd pain PROCEDURE: CT abdomen pelvis wo con: Encounter: Initial Comparison: CT abdomen dated May 19, 2017 Technique: Axial CT images were performed through the abdomen and pelvis without intravenous contrast. Coronal and sagittal two-dimensional reformats. Automated Exposure Control and Iterative Reconstruction dose reducing techniques were utilized. Findings: The lung bases are clear. Intrathoracic stomach. The unenhanced contours of the liver are stable with multiple cysts. The gallbladder is absent. The spleen, pancreas and adrenal glands are stable. Small left renal stone and a left-sided hyperdense medial cyst. Kidneys are otherwise unremarkable. There is interval improvement in dilated fluid-filled small bowel loops seen throughout the abdomen or pelvis. There is oral contrast material seen within the left colon from the patient's recent small bowel follow-through. No free air. Impression: Interval slight improvement in the patient's chronic obstructive bowel pattern. This probably at or near the patient's baseline level of partial small bowel obstruction. There is a preliminary report by [facility]. .
--- NOTE | 2017-05-23 09:23 | General Surgery Consult Note ---
Consult date: 05/23/17 Attending Physician: Samreen Pandey MD Reason for consult: abdominal pain PFSH Patient Stated Medical History Migraine Yes Cataracts Yes: bilat Other HEENT Yes: TMJ Asthma Yes Bronchitis Yes Chronic Obstructive Pulmonary Yes Disease (COPD) Pneumonia Yes Sleep Apnea Yes: no CPAP Other Respiratory INFLUENZA MULTIPLE TIMES, INSOMNIA Gastroesophageal Reflux Yes Disease Hiatal Hernia Yes Obstructive Bowel Yes Other GI Yes: CONSTIPATION Hx Urinary Tract Infection Yes Anemia Yes Osteoarthritis Yes: Spine and hands and knees Other Musculoskeletal Yes: arthritis Cellulitis Yes Shingles Yes Surgical History: Exploratory laparotomy with lysis of adhesions 10/13/16 ( [facility]). Open cholecystectomy with common bile duct exploration & T-tube ([facility]). Right inguinal hernia repair 10-05-2015 ([facility]). Breast Bx. Incisional hernia with mesh. Sigmoid colon resection for colon cancer . colonoscopy tubular adenoma x1 01-11-2010. Tonsillectomy. Bilateral salpingo-oophorectomy (patient still has uterus). Bilateral cataracts Family History: Family History (Last Updated 04/27/17 @ 10:34 by Kayla Greenberg MD) Maternal Aunt Breast cancer Father Leukemia Brother Cancer of kidney Colon cancer Cancer of gallbladder and extrahepatic bile ducts Sister Alzheimer disease HTN (hypertension) Family History Updates: . - Social History Smoking status: Current every day smoker Packs-years: 65 second hand exposure: No Substance use type: does not use Alcohol intake frequency: does not drink Housing: house Household members: none Current occupational status: retired Does patient use chewing tobacco?: No Current residence: Apartment/Private Home Medications Home Medications Medication Instructions Recorded Confirmed Type Aspirin [Aspir 81] 81 mg PO DAILY #0 01/10/10 05/23/17 History Atorvastatin Calcium 20 mg PO HS #0 06/07/14 05/23/17 History Esomeprazole [NEXIUM 20 mg Capsule] 20 mg PO DAILY #0 01/23/16 05/23/17 History Multivitamin [Multi-Day Vitamins] 1 tab PO PRN PRN #0 01/23/16 05/23/17 History PEG 3350 17gm PACKET [Miralax] 17 gm PO DAILY 09/03/16 05/23/17 History Albuterol Sulfate 1 vial AEROSOL BID PRN 04/27/17 05/23/17 History Cholecalciferol [Vit. D-3] 1 tab PO DAILY 04/27/17 05/23/17 History Allergies Allergy/AdvReac Type Severity Reaction Status Date / Time codeine Allergy Unknown Chest Verified 05/23/17 00:50 Pressure Review of Systems 10-point ROS: negative except for HPI and the following: - Eyes/Ears/Nose/Throat Ear Nose Throat: Present: dentures - Respiratory Respiratory: Present: difficulty breathing (COPD) - Musculoskeletal Musculoskeletal: Present: back pain, joint pain - Neurological Neurological: Present: muscle weakness - Hematologic/Lymphatic Hematologic/Lymphatic: Present: easy bruising - Vital Signs Last Vital Signs Temp 97.1 F 05/23/17 07:35 Pulse 69 05/23/17 08:00 Resp 18 05/23/17 07:35 BP 130/70 05/23/17 07:35 Pulse Ox 93 05/23/17 07:35 - Laboratory Result Diagrams: 05/23/17 01:10 05/23/17 01:10 Hospital Course Summary Disclaimer: The visit summary below is not to be considered part of the above Progress Note.
[2017-05-23] MEDS: ALBUTEROL 2.5mg/3ml (0.083%) NEB AEROSOL PRN (11:11)
[2017-05-23] MEDS: 1/2 NS 1,000 ML IV SCH (11:30)
[2017-05-23] MEDS: PANTOPRAZOLE 40 MG INJECTION IVP SCH (11:49)
[2017-05-23] MEDS: MORPHINE SULFATE 4mg INJECTION IVP PRN ×2 (11:52→16:53)
[2017-05-23 15:23] VITALS: BMI 19.3
[2017-05-23] MEDS ORDERED: BISACODYL 10 MG SUPPOSITORY RECTALLY ONE (16:31)
[2017-05-23] MEDS ORDERED: ACETAMINOPHEN 325 MG TABLET PO PRN (19:33)
[2017-05-23] MEDS ORDERED: BISACODYL 10 MG SUPPOSITORY RECTALLY PRN (19:33)
--- NOTE | 2017-05-23 21:53 | Consultation ---
DATE OF SERVICE 05/25/2017 FINDINGS Mrs. Chávez is an 82-year-old female who is very well known to my surgical practice. The patient was recently in the hospital as a result of a high-grade partial small-bowel obstruction. This did resolve fairly quickly and she did undergo a Gastrografin small bowel follow-through that progressed through her GI tract in the normal fashion. The patient was subsequently discharged earlier this week. Patient states that yesterday, however, she began to experience recurrent abdominal pain. She described the pain as being throughout her entire abdomen. Patient states the pain was quite severe and lasted throughout the majority of yesterday and today. As a result of this pain she represented to the emergency room and was subsequently admitted for further evaluation. Patient states she did have a bowel movement while in the emergency room. Upon entering the room this evening she informs me that she is no longer experiencing any element of abdominal pain. She is requesting food. She denies any element of nausea. PAST MEDICAL HISTORY, PAST SURGICAL HISTORY, MEDICATIONS, ALLERGIES, SOCIAL HISTORY, FAMILY HISTORY, REVIEW OF SYSTEMS Performed by my nurse practitioner, Raciel Garcia APRN. PHYSICAL EXAM GENERAL: Mrs. Chávez is an 82-year-old female who this afternoon did not appear to be in acute distress. VITAL SIGNS: Temperature 97.1, pulse 70, respirations 16, blood pressure 130/70, SAO2 95% on room air. HEENT: Normocephalic. Pupils are equally round and react to light and accommodation. HEART: Regular rate and rhythm. Normal S1 and S2 without gallops, murmurs or clicks. CHEST: Clear to auscultation bilaterally. Visualization of the abdomen reveals it to be fairly scaphoid in its appearance. The abdomen does not appear to be significantly distended as one would expect with a bowel obstructive pattern. Palpation of the abdomen revealed it to be soft and completely nontender throughout. There was no evidence for guarding or rebound. LABORATORY/RADIOGRAPHIC EVALUATION The patient had a CBC upon admission that was unremarkable. White count was 8.4. Hemoglobin is normal at 14.2. The patient had a CMP with some electrolyte abnormalities with a sodium of 145, chloride 109. She did undergo a CT scan of her abdomen and pelvis. I have reviewed the CT scan personally as well as the dictated report. She does have a considerable amount of stool throughout her colon. It does appear that she still has some contrast present within her transverse colon region. Small bowel is distended in nature. One can see contrast as well within her rectum. Radiology had dictated this as consistent with a chronic obstructive pattern with slight improvement from her earlier presentation this week. Radiology felt that this was probably at or near the patient's baseline level for a partial small-bowel obstruction. ASSESSMENT 82-year-old female with history for multiple abdominal operations, history for small bowel obstruction requiring extensive adhesiolysis, recent development of recurrent high-grade small-bowel obstructions. Patient currently doing well from a clinical standpoint. PLAN Would go ahead and begin the patient on some clear liquids. May give the patient a couple of Dulcolax suppositories to facilitate removal of the stool that is still present within her rectal vault and descending colon region. Would recommend that we slowly advance the patient's diet. The patient at this time does not have an acute surgical abdomen. [facility]
[2017-05-23] MEDS: ATORVASTATIN 20 MG TABLET PO SCH (22:03)
[2017-05-24] MEDS: 1/2 NS 1,000 ML IV SCH ×2 (00:56→15:10)
[2017-05-24] MEDS: PANTOPRAZOLE 40 MG INJECTION IVP SCH (08:49)
[2017-05-24] MEDS: POLYETHYL GLYCOL 3350 17gm PACKET PO SCH (08:49)
--- NOTE | 2017-05-24 11:43 | Progress Note ---
DATE OF SERVICE 05/24/2017 FINDINGS Mrs. Chávez stated that she did have some minimal rectal bleeding this morning with the process of defecation. She has had no further bloody stools since this morning. She states that she has not had any severe abdominal pain. Denies any element of nausea or vomiting. She did receive a suppository last evening and stated that she did have a "hard stool which eventually softened up ". EXAM VITAL SIGNS: Temperature 98.5, pulse 79, respirations 14, blood pressure 144/90 , SAO2 91% on room air. HEENT: Normocephalic. Pupils are equally round and react to light and accommodation. CHEST: Clear to auscultation bilaterally. HEART: Regular rate and rhythm. Normal S1 and S2 without gallops, murmurs or clicks. ABDOMEN: Palpation of abdomen reveals it to be soft and completely nontender today. No evidence for guarding or rebound. LABORATORY/RADIOGRAPHIC EVALUATION The patient's white count is stable at 5.1. Hemoglobin has drifted down slightly at 11.7. This may be dilutional in nature. BMP obtained and found to be without marked abnormalities. ASSESSMENT 82-year-old female with presentation of recurrent small-bowel obstruction. New onset of minimal rectal bleeding. Overall patient doing well. PLAN Will go and advance diet as tolerated today. Will recheck CBC tomorrow. At this time I do not plan on proceeding with any endoscopic evaluation of her minimal rectal bleeding unless she would continue to have ongoing bleeding or if her hemoglobin would continue to drift downward. [facility]
--- NOTE | 2017-05-24 13:11 | Progress Note ---
- Date 05/24/17 Subjective: Abiola denies any abdominal pain or nausea. She is hungry and is ready to eat. She states she's lost weight over the last week from being NPO for a couple of days. She had a couple frankly bloody-mucoid bowel movements since last night. She denies weakness or dizziness or lightheadedness. No SOA or chest pain. Objective Vital signs: Temperature 98.5 F 05/24/17 07:37 Pulse Rate 79 05/24/17 07:37 Respiratory Rate 14 05/24/17 07:37 Blood Pressure 144/90 H 05/24/17 07:37 Pulse Oximetry 91 05/24/17 07:37 Height/Weight/BMI: Height 1.52 m Weight 47.9 kg Body Mass Index 19.3 - Constitutional Present: no acute distress, well nourished, well developed, thin - Routine HEENT Exam Head: Present: normocephalic Eye: Present: PERRL. Absent: conjunctival icterus, scleral injection ENT: Present: oropharynx clear - Routine Respiratory Exam Present: CTA bilaterally - Routine Cardiovascular Exam Present: RRR, S1, S2 - Routine Abdominal Exam Present: soft, normoactive bowel sounds, non distended, non tender - Routine Extremities Exam Present: no edema, pulses intact - Routine Musculoskeletal Exam Musculoskeletal: Present: no clubbing or cyanosis, moving extremities well - Routine Skin Exam Present: intact, dry, warm - Routine Neurological Exam Present: alert, oriented X3, normal speech - Routine Psychiatric Exam Present: normal affect, normal thought process, cooperative Results - Labs CBC & Chem 7: 05/24/17 05:07 05/24/17 05:07 Assessment and Plan (1) Small bowel obstruction Current visit: No Status: Acute Assessment and Plan: ASSESSMENT Recurrent distal small bowel obstruction Lower GI bleed, suspect anal fissure versus hemorrhoid Abdominal pain secondary to SBO - resolved Nausea secondary to SBO - resolved Hypernatremia (POA) - resolved Dehydration COPD CHIQUITA Tobacco dependency GERD HDL Stage III CKD OA Plan Pt rapidly improved again with conservative care. However, she is now having bloody mucoid stools. This was discussed with both Dr. Greenberg and Dr. Gonzalez -- most likely this is from an anal fissure rectal irritation, or hemorrhoid from recent admission that resulted in profuse bowel movements. However, we will need to monitor this closely to ensure there is not a secondary process. Hgb is stable at 11.7 and she isn't showing signs of ABLA. Vitals are stable. Na down to 143 with IVF. Advance diet per discussion with Dr. Gonzalez. Continue IVF for now. DVT Prophylaxis: SCD's GI Prophylaxis: Protonix Resuscitation Status: Full Code - Physician Narrative Physician: Kayla Greenberg MD Narrative: Date: 05/24/17 Time: 1524 I have independently evaluated and examined this patient. I reviewed the chart, the patient's history, and the TOOL GRINDER/PA's documented findings as above. We discussed and formulated the assessment and plan as above with additions as below: Abiola reports onset of rectal bleeding after she was hospitalized in denies bleeding between recent hospitalizations. She denies rectal pain at present and doesn't believe she has hemorrhoids. She is concerned that she may have some inflammation in the rectum following diarrhea she experienced with the Gastrografin upper GI early in the week. She denies nausea or vomiting and her only real concern is when she can get food. Alert, cooperative, fluent speech Respirations nonlabored Abdomen is soft, nontender, active bowel sounds. Advance diet; continue to monitor stools and hemoglobin. Hemoglobin dropped overnight but is consistent with discharge hemoglobin from suggesting hemoconcentration on admission yesterday. Resume Nexium orally in place of IV PPI. Hospital Course Summary Disclaimer: The visit summary below is not to be considered part of the above Progress Note. Hospital Course: 05/23/17 Patient placed in inpatient admission status for evaluation and treatment of SBO. NPO for bowel rest secondary to SBO. Hold home medications secondary to NPO. IVF initiated for hydration - initially on NS at 100cc/hr, with hypernatremia will change to 1/2 NS and decrease rate to 75cc/hr. Consult with Dr Gonzalez for surgical evaluation of SBO. Nursing to ambulate to help bowel function and maintain strength. SCD for DVT prevention. Will add Protonix IV secondary to her underlying GERD. RT for tobacco cessation. Ful code as per her requests. Care to return to Dr Gonsalez at [place] [facility] [place]17 Pt rapidly improved again with conservative care. However, she is now having bloody mucoid stools. This was discussed with both Dr. Greenberg and Dr. Gonzalez -- most likely this is from an anal fissure rectal irritation, or hemorrhoid from recent admission that resulted in profuse bowel movements. However, we will need to monitor this closely to ensure there is not a secondary process. Hgb is stable at 11.7 and she isn't showing signs of ABLA. Vitals are stable. Na down to 143 with IVF. Advance diet per discussion with Dr. Gonzalez. Continue IVF for now. Convert to oral PPI.
[2017-05-24] MEDS: ATORVASTATIN 20 MG TABLET PO SCH (21:02)
[2017-05-25] MEDS: 1/2 NS 1,000 ML IV SCH (05:21)
[2017-05-25] MEDS ORDERED: ESOMEPRAZOLE 20 MG PO SCH (09:00)
[2017-05-25] MEDS: POLYETHYL GLYCOL 3350 17gm PACKET PO SCH (11:15)
[2017-05-25] MEDS: ALBUTEROL 2.5mg/3ml (0.083%) NEB AEROSOL PRN (11:18)
--- NOTE | 2017-05-25 13:20 | Progress Note ---
- Date 05/25/17 Subjective: Abiola is seen today in follow up. Reports a normal BM today. Denies abdominal pain. denies any c/o today. Objective Vital signs: Temperature 97.5 F 05/25/17 07:38 Pulse Rate 75 05/25/17 08:00 Respiratory Rate 24 05/25/17 11:19 Blood Pressure 162/76 H 05/25/17 07:38 Pulse Oximetry 92 05/25/17 11:19 Height/Weight/BMI: Height 1.52 m Weight 45.6 kg Body Mass Index 19.3 - Constitutional Present: no acute distress, thin, cooperative - Routine HEENT Exam Head: Present: normocephalic, atraumatic Eye: Present: EOMI, PERRL ENT: Present: mucous membranes moist - Routine Respiratory Exam Present: CTA bilaterally. Absent: rales, rhonchi, crackles - Routine Cardiovascular Exam Present: RRR, S1, S2, no murmur - Routine Abdominal Exam Present: soft, normoactive bowel sounds, non distended, non tender - Routine Extremities Exam Present: no edema, non tender - Routine Musculoskeletal Exam Musculoskeletal: Present: no clubbing or cyanosis, normal strength, moving extremities well - Routine Skin Exam Present: intact, dry, warm - Routine Neurological Exam Present: alert, oriented X3, moving all extremities - Routine Psychiatric Exam Present: normal affect, cooperative Results - Labs CBC & Chem 7: 05/25/17 04:40 05/25/17 04:40 Assessment and Plan (1) Small bowel obstruction Current visit: No Status: Acute Assessment and Plan: ASSESSMENT Recurrent distal small bowel obstruction Lower GI bleed, suspect anal fissure versus hemorrhoid Abdominal pain secondary to SBO - resolved Nausea secondary to SBO - resolved Hypernatremia (POA) - resolved Dehydration COPD CHIQUITA Tobacco dependency GERD HDL Stage III CKD OA Plan 05/25/17 Recurrent SBO- hx of intra-abdominal adhesions. Continue supportive care. Taking PO well. reports normal BM. Pain is controlled. DC IVF as she is tolerating PO well. She is returning to baseline. Home soon? DVT Prophylaxis: SCD's GI Prophylaxis: Protonix Resuscitation Status: Full Code - Physician Narrative Physician: Kayla Greenberg MD Narrative: Date: 05/25/17 Time: 1750 I have independently evaluated and examined this patient. I reviewed the chart, the patient's history, and the LANDSCAPE CREW LEADER/PA's documented findings as above. We discussed and formulated the assessment and plan as above with additions as below: Doing well, stable for discharge. Please refer to discharge summary for further comments. Hospital Course Summary Disclaimer: The visit summary below is not to be considered part of the above Progress Note. Hospital Course: 05/23/17 Patient placed in inpatient admission status for evaluation and treatment of SBO. NPO for bowel rest secondary to SBO. Hold home medications secondary to NPO. IVF initiated for hydration - initially on NS at 100cc/hr, with hypernatremia will change to 1/2 NS and decrease rate to 75cc/hr. Consult with Dr Gonzalez for surgical evaluation of SBO. Nursing to ambulate to help bowel function and maintain strength. SCD for DVT prevention. Will add Protonix IV secondary to her underlying GERD. RT for tobacco cessation. Ful code as per her requests. Care to return to Dr Gonsalez at time of discharge from [facility] [place]. 05/24/17 Pt rapidly improved again with conservative care. However, she is now having bloody mucoid stools. This was discussed with both Dr. Greenberg and Dr. Gonzalez -- most likely this is from an anal fissure rectal irritation, or hemorrhoid from recent admission that resulted in profuse bowel movements. However, we will need to monitor this closely to ensure there is not a secondary process. Hgb is stable at 11.7 and she isn't showing signs of ABLA. Vitals are stable. Na down to 143 with IVF. Advance diet per discussion with Dr. Gonzalez. Continue IVF for now. Convert to oral PPI. Plan 05/25/17 Recurrent SBO- hx of intra-abdominal adhesions. Continue supportive care. Taking PO well. reports normal BM. Pain is controlled. DC IVF as she is tolerating PO well. She is returning to baseline. Home soon?
[2017-05-25 15:13] VITALS: BP 132/78; RESP 18; TEMP 96.9; O2SAT 94
--- NOTE | 2017-05-25 17:57 | Discharge Summary ---
Discharge Information Date of admission: 05/23/17 02:52 Anticipated date of discharge: 05/25/17 Attending Physician: Kayla Greenberg MD Primary care physician: Milly Gonsalez DO Consults: Vince Gonzalez M.D. - Discharge Diagnosis (1) Small bowel obstruction Status: Acute Recurrent distal small bowel obstruction Lower GI bleed, suspect anal fissure versus hemorrhoid Abdominal pain secondary to SBO - resolved Nausea secondary to SBO - resolved Hypernatremia (POA) - resolved Dehydration COPD CHIQUITA Tobacco dependency GERD HDL Stage III CKD OA - Laboratory Labs: 05/25/17 04:40 05/25/17 04:40 - Radiology Radiology: CT abdomen and pelvis without contrast on 05/23/17: The lung bases are clear. Intrathoracic stomach. The unenhanced contours of the liver are stable with multiple cysts. The gallbladder is absent. The spleen, pancreas and adrenal glands are stable. Small left renal stone and a left-sided hyperdense medial cyst. Kidneys are otherwise unremarkable. There is interval improvement in dilated fluid-filled small bowel loops seen throughout the abdomen or pelvis. There is oral contrast material seen within the left colon from the patient's recent small bowel follow-through. No free air. Impression: Interval slight improvement in the patient's chronic obstructive bowel pattern. This probably at or near the patient's baseline level of partial small bowel obstruction. History of Present Illness HPI: Ms. Chávez is an 82 year old female who has presented to the emergency department this evening with reports of abdominal pain. She was just discharged 3 days ago after a 3 day inpatient stay for small bowel obstruction. This obstruction spontaneously resolved. She went home, has been taking Miralax but has not had a significant bowel movement since her discharge. She returns tonight with worsening abdominal pain. A CT scan of the abdomen demonstrates a small bowel obstruction recurrence according to the ER physicians report. She has been given IV fluids and zofran and is feeling better at this time. No NG tube was placed. At the request of the ER provider, this patient will be placed in the hospital tonight for further evaluation and treatment of presenting issues. Objective Vital signs: Temperature 96.9 F 05/25/17 15:00 Pulse Rate 78 05/25/17 15:00 Respiratory Rate 18 05/25/17 15:00 Blood Pressure 132/78 05/25/17 15:00 Pulse Oximetry 94 03/18/18 15:00 NAD, alert, fluent speech Respirations nonlabored, breath sounds clear Abdomen soft, nontender Extremities without edema Height/Weight/BMI: Height 1.52 m Weight 45.6 kg Body Mass Index 19.3 Hospital Course This is a general summary of the patient's hospital course. For more details refer to the complete medical record. Hospital course: Mrs. Chávez was admitted with recurrent SBO. Bowel rest was initiated with IV fluids for hydration. She was hypernatremic on admission and subsequently was treated with 1/2 normal saline with normalization of sodium over the next 24 hours. IV Protonix was initiated. She was seen in consultation by Dr. Gonzalez who recommended conservative management. Abdominal pain resolved quickly and bowel function was restored although the patient described small mucoid bloody stools on 05/24. Hemoglobin was stable compared to prior discharge. It was felt that the patient likely had some rectal irritation from recent diarrhea after Gastrografin study during the prior hospitalization or constipation immediately prior to the current hospitalization. Bleeding subsided within 24 hours and the patient reported returned to normal soft brown stools without rectal pain. She denied having hemorrhoids. The patient reports she typically does not have difficulty with constipation and that MiraLAX has been adequate to maintain bowel function except immediately before current hospitalization. MiraLAX will be resumed at discharge with instructions to increase to twice daily or add Senokot if she notices decreased frequency in stools or hard stools. The patient was able to resume a regular diet on 05/24 with good tolerance. On 05/25 the patient reports no abdominal pain, no rectal bleeding, and good tolerance of regular diet. She's felt stable for discharge at this time. She will resume usual medications at discharge and is to follow-up with Dr Gonsalez in one to 2 weeks. Time spent with patient: discharge greater than 30 minutes Resuscitation Status: Full Code Discharge Plan - Discharge Disposition Discharge Date: 05/25/17 Disposition: 01 Discharged Home, Self-Care *Condition: Improved Reason For Visit (Visit label in EMR): SBO - Discharge Medications *Discharge Medications: Continue Aspirin [Aspir 81] 81 mg PO DAILY #0 Atorvastatin Calcium 20 mg PO HS #0 Multivitamin [Multi-Day Vitamins] 1 tab PO PRN PRN #0 PRN Reason: when she thinks about taking Albuterol Sulfate 1 vial AEROSOL BID PRN PRN Reason: WHEEZING Cholecalciferol [Vit. D-3] 1 tab PO DAILY Esomeprazole [NEXIUM 20 mg Capsule] 20 mg PO DAILY #0 PEG 3350 17gm PACKET [Miralax] 17 gm PO DAILY - Discharge Packet/Instructions *Diet: regular *Activity: As tolerates *Pain Management/Treatment: Tylenol per package directions if pain medication needed *Wound Care: Not applicable *Expected Signs/Symptoms: Some abdominal cramping may occur; if it all constipated increase MiraLAX to twice daily or add senna which you can purchase [id number] *Notify Physician if: Any significant abdominal pain, nausea or vomiting, or recurrent rectal bleeding *During Business Hours Contact: Dr. Gonsalez or Dr. Gonzalez's offices *After Business Hours Contact: Call [facility] at [phone] and ask that the on-call physician be paged *Pending Lab/Results: No Pending Lab - Referrals/Follow Up *Referrals/Follow Up: Milly Gonsalez, DO [Family Provider] - (1-2 weeks (or as scheduled after last admission CALL FOR FOLLOW UP APPOINTMENT TO BE SEEN IN 1-2 WEEKS WITH MILLY GONSALEZ OR KEEP APPOINTMENT IF ALREADY SCHEDULED. OFFICE NUMBER [phone]) - Patient Handouts Patient Handouts: Bowel Obstruction (DC) - Dismissal Complete Discharge Instructions are:: Complete Physician Narrative - Narrative Attestation Narrative: Date: 05/25/17 Time: 4739
[2017-05-25 19:23] VITALS: PULSE 82
[2017-05-26] MEDS ORDERED: OMEPRAZOLE 20 MG CAPSULE PO SCH (06:30)
--- NOTE | 2017-05-26 08:53 | Progress Note ---
DATE 05/25/2017 FINDINGS Abiola was seen this morning in good spirits. She denied any element of abdominal pain. States that she did have a normal bowel movement that was not bloody in nature. OBJECTIVE VITALS: Afebrile. Normotensive. Last recorded vitals include temperature 97.5 , pulse 75, respirations 24, blood pressure 162/76, SaO2 92% on room air. HEENT: Normocephalic. Pupils are equally round and react to light and accommodation. CHEST: Clear to auscultation bilaterally. HEART: Regular rate and rhythm. Normal S1, S2, without gallops, murmurs or clicks. ABDOMEN: Palpation of abdomen today reveals it to be soft and completely nontender. LABORATORY/RADIOGRAPHIC EVALUATION The patient had a CBC today and her hemoglobin is stable at 12.1. White count stable at 5.5. BMP obtained and found to be without marked abnormalities. ASSESSMENT 82-year-old female with history for recurrent small bowel obstruction. Patient currently doing well. PLAN I do believe the patient could be discharged to home. Will have the patient follow up with me on an as needed basis. [place]
== END 2017-05-25 16:45 | disposition home or self-care (01) | DRG 389 ==
LOC: ED 00:26 → MED 02:52 → SUATTDRO 02:52 → MED 03:40
PROVIDERS: ADMIT Hospitalist; ATTEND Internal Medicine